=== PATIENT | male | born 1980 | race Caucasian/White ===

== ENCOUNTER 2019-01-24 12:50 | Inpatient (IN) | payer OTHER ==
[~2019-01-24] VITALS: Ht 167.6 cm; Wt 107.0 kg
[2019-01-24 16:20] VITALS: BP 141/81; PULSE 96; RESP 18
[2019-01-24] MEDS ORDERED: morphine 2 MG INJ IV PRN (17:00)
[2019-01-24] MEDS ORDERED: NACL 0.9% 3 ML SYG IV SCH (17:00)
[2019-01-24] MEDS: PIPER-TAZO 3.375 GM IV (PMX) 100 ML IVPB SCH (17:36)
--- NOTE | 2019-01-24 17:54 | HP ---
Date/Time of Note Date/Time of Note DATE: 01/24/19 TIME: 17:48 Assessment/Plan VTE Prophylaxis Risk score (from Nsg)>0 risk: 1 SCD applied (from Nsg): Yes Pharmacological prophylaxis: heparin Lines/Catheters IV Catheter Type (from [facility]): Saline Lock Assessment/Plan Hospital Course 39 yo male with h/o diverticulitis who presents again with mild diverticulitis with small abscess - Will give zoysn IV for now - No indication for surgical management now given clinical stability. Abscess is very small to have IR attempt drainage so will manage conservatively - If doing well overnight will plan to discharge in AM with strict return precautions. Patient wants to be able to go to work tomorrow Result Diagram: 01/24/19 1703 Results 24hrs Laboratory Tests Test 01/24/19 17:03 White Blood Count 10.3 Red Blood Count 4.65 L Hemoglobin 14.6 Hematocrit 43.2 Mean Corpuscular Volume 92.9 Mean Corpuscular Hemoglobin 31.4 Mean Corpuscular Hemoglobin Concent 33.8 Red Cell Distribution Width 13.4 Platelet Count 236 Mean Platelet Volume 11.3 H Immature Granulocytes % 0.200 Neutrophils % 73.1 Lymphocytes % 17.6 Monocytes % 8.3 Eosinophils % 0.5 Basophils % 0.3 Nucleated Red Blood Cells % 0.0 Immature Granulocytes # 0.020 Neutrophils # 7.5 Lymphocytes # 1.8 Monocytes # 0.9 Eosinophils # 0.1 Basophils # 0.0 Nucleated Red Blood Cells # 0.0 HPI/ROS Admit Date/Time Admit Date/Time January 24, 2019 at 15:22 Hx of Present Illness 39 yo male with h/o diverticulitis who has been transferred from [facility] ED for management of recurrent diverticulitis Patient says he had severe episode of diverticulitis a few years ago. resolved and has been fine since. However he has been instructed to seek immediate care if ever develops similiar symptoms. Over past day has developed mild abdominal pain and pressure so went to ED and CT scan showed acute diverticulitis of sigmoid colon with 1.5 cm rosita-colonic abscess. He was given abx there and transferred here Seen after this he feels totally normal he says. pain completely resolved. wants to eat. Requests to be discharged in AM ROS Constitutional: no complaints, improved Eyes: no complaints ENT: no complaints Respiratory: no complaints Cardiovascular: no complaints Gastrointestinal: no complaints Genitourinary: no complaints Musculoskeletal: no complaints Skin: no complaints Neurologic: no complaints Endocrine: no complaints Lymphatic: no complaints Psychological: no complaints, nl mood/affect Immunologic: no complaints PMH/Family/Social Past Medical History Medical History: colitis Medications Current Medications IV Flush (NS 3 ml) 3 ml PER PROTOCOL IV ; Start 01/24/19 at 17:00 Morphine Sulfate (morphine) 2 mg Q4H PRN IV .SEVERE PAIN 7-10; Start 01/24/19 at 17:00 Piperacillin Sod/ Tazobactam Sod 100 ml @ 200 mls/hr Q8 IVPB Last administered on 01/24/19at 17:36; Admin Dose 200 MLS/HR; Start 01/24/19 at 17:30 Coded Allergies: No Known Allergy (Unverified , 01/24/19) Past Surgical History Past Surgical Hx: no surgical history Family History Significant Family History: no pertinent family hx Social History Smoking Status: Former smoker Drug Use: none Exam/Review of Systems Vital Signs Vitals Vital Signs Date Temp Pulse Resp B/P (MAP) Pulse Ox O2 O2 Flow FiO2 Time Delivery Rate 01/24/19 98.6 96 18 141/81 Room Air 16:20 (101) Exam Constitutional: alert, oriented, well developed Psych: no complaints, nl mood/affect Head: normocephalic, atraumatic Eyes: nl conjunctiva, EOMI, nl lids, nl sclera, PERRL ENMT: nl external ears & nose, nl lips & teeth, nl nasal mucosa & septum Neck: supple, non-tender Respiratory: clear to auscultation, normal air movement Cardiovascular: regular rate and rhythm, nl pulses Gastrointestinal: soft, nl liver, spleen, non-tender Musculoskeletal: nl extremities to inspection Extremities: normal pulses 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
[2019-01-24 20:00] VITALS: BP 137/81; PULSE 79; RESP 18
[2019-01-25] MEDS: PIPER-TAZO 3.375 GM IV (PMX) 100 ML IVPB SCH ×2 (00:05→07:37)
[2019-01-25] MEDS ORDERED: ACETAMINOPHEN 325 MG TAB PO PRN (00:30)
[2019-01-25 02:00] VITALS: BP 127/72; PULSE 71; RESP 18
[2019-01-25 08:00] VITALS: BP 120/69; PULSE 68; RESP 17
[2019-01-25] MEDS ORDERED: METR500T PO (09:09)
[2019-01-25] MEDS ORDERED: CIPR500T4 PO (09:09)
--- NOTE | 2019-01-25 09:12 | PDOCDIS ---
Discharge Instructions DIAGNOSIS Discharge Diagnosis Diverticulitis CONDITION [id number] Patient Condition: [id number] Stable FOLLOW UP/APPOINTMENTS Follow-up Plan Take your antibiotics as prescribed Return to the hospital if you have worsening of abdominal pain, fever, or any other concerning symptoms CELESTE SCHROEDER MD January 25, 2019 09:12
--- NOTE | 2019-01-25 15:30 | DS ---
Date/Time of Note Date/Time of Note DATE: 01/25/19 TIME: 15:29 Discharge Summary Admission/Discharge Info Admit Date/Time January 24, 2019 at 15:22 Discharge Date/Time January 25, 2019 at 10:25 Discharge Diagnosis Diverticulitis Patient Condition: Stable Hx of Present Illness 39 yo male with h/o diverticulitis who has been transferred from [facility] ED for management of recurrent diverticulitis Patient says he had severe episode of diverticulitis a few years ago. resolved and has been fine since. However he has been instructed to seek immediate care if ever develops similiar symptoms. Over past day has developed mild abdominal pain and pressure so went to ED and CT scan showed acute diverticulitis of sigmoid colon with 1.5 cm rosita-colonic abscess. He was given abx there and transferred here Seen after this he feels totally normal he says. pain completely resolved. wants to eat. Requests to be discharged in AM Hospital Course 39 yo male with h/o diverticulitis who presents again with mild diverticulitis with small abscess He was given zoysn IV. He had no abdominal pain or systemic toxicity. He requested to be discharged. He was given cipro and flagyl and advised to return if symptoms recur Home Meds Active Scripts Metronidazole* (Flagyl*) 500 Mg Tablet, 500 MG PO TID for 14 Days, #21 TAB Prov:CELESTE SCHROEDER MD 01/25/19 Ciprofloxacin Hcl* (Ciprofloxacin Hcl*) 500 Mg Tablet, 500 MG PO BID for 14 Days, #14 TAB Prov:CELESTE SCHROEDER MD 01/25/19 Follow-up Plan Take your antibiotics as prescribed Return to the hospital if you have worsening of abdominal pain, fever, or any other concerning symptoms Primary Care Provider Not On Staff Doctor Pending Labs Laboratory Tests Test 01/24/19 17:03 01/25/19 04:59 White Blood Count 10.3 10^3/ul (4.8-10.8) 8.2 10^3/ul (4.8-10.8) Red Blood Count 4.65 10^6/ul (4.70-6.10) 4.88 10^6/ul (4.70-6.10) Hemoglobin 14.6 g/dl (14.0-18.0) 15.4 g/dl (14.0-18.0) Hematocrit 43.2 % (42.0-52.0) 45.1 % (42.0-52.0) Mean Corpuscular Volume 92.9 fl (82.0-101.0) 92.4 fl (82.0-101.0) Mean Corpuscular 31.4 pg (29.0-33.0) 31.6 pg (29.0-33.0) Hemoglobin Mean Corpuscular 33.8 g/dl (32.0-37.0) 34.1 g/dl (32.0-37.0) Hemoglobin Concent Red Cell Distribution 13.4 % (11.5-14.5) 13.5 % (11.5-14.5) Width Platelet Count 236 10^3/UL (140-415) 256 10^3/UL (140-415) Mean Platelet Volume 11.3 fl (7.4-10.4) 11.5 fl (7.4-10.4) Immature Granulocytes % 0.200 % (0.001-0.429) 0.200 % (0.001-0.429) Neutrophils % 73.1 % (39.0-77.0) 66.0 % (39.0-77.0) Lymphocytes % 17.6 % (15.0-51.0) 22.6 % (15.0-51.0) Monocytes % 8.3 % (0.0-11.0) 8.9 % (0.0-11.0) Eosinophils % 0.5 % (0.0-7.0) 1.8 % (0.0-7.0) Basophils % 0.3 % (0.0-2.0) 0.5 % (0.0-2.0) Nucleated Red Blood Cells 0.0 /100WBC (0.0-0.0) 0.0 /100WBC (0.0-0.0) % Immature Granulocytes # 0.020 10^3/ul (0.0-0.031) 0.020 10^3/ul (0.0-0.031) Neutrophils # 7.5 10^3/ul (1.6-7.5) 5.4 10^3/ul (1.6-7.5) Lymphocytes # 1.8 10^3/ul (0.8-2.9) 1.9 10^3/ul (0.8-2.9) Monocytes # 0.9 10^3/ul (0.3-0.9) 0.7 10^3/ul (0.3-0.9) Eosinophils # 0.1 10^3/ul (0.0-0.5) 0.2 10^3/ul (0.0-0.5) Basophils # 0.0 10^3/ul (0.0-0.1) 0.0 10^3/ul (0.0-0.1) Nucleated Red Blood Cells 0.0 10^3/ul (0.0-0.0) 0.0 10^3/ul (0.0-0.0) # Sodium Level 141 mmol/L (135-144) 143 mmol/L (135-144) Potassium Level 4.3 mmol/L (3.5-5.1) 4.2 mmol/L (3.5-5.1) Chloride Level 107 mmol/L (97-110) 106 mmol/L (97-110) Carbon Dioxide Level 24 mmol/L (21-31) 27 mmol/L (21-31) Anion Gap 10 (5-13) 10 (5-13) Blood Urea Nitrogen 8 mg/dl (7-20) 10 mg/dl (7-20) Creatinine 0.70 mg/dl (0.61-1.24) 0.75 mg/dl (0.61-1.24) Est Glomerular Filtrat > 60 mL/min (>60) > 60 mL/min (>60) Rate mL/min Glucose Level 84 mg/dl (70-220) 99 mg/dl (70-220) Calcium Level 9.9 mg/dl (8.4-10.2) 9.4 mg/dl (8.4-10.2) Total Bilirubin 0.7 mg/dl (0.2-1.3) 0.7 mg/dl (0.2-1.3) Direct Bilirubin 0.00 mg/dl (0.00-0.20) 0.00 mg/dl (0.00-0.20) Indirect Bilirubin 0.7 mg/dl (0-1.1) 0.7 mg/dl (0-1.1) Aspartate Amino 20 IU/L (15-46) 19 IU/L (15-46) Transf (AST/SGOT) Alanine 23 IU/L (13-69) 19 IU/L (13-69) Aminotransferase (ALT/SGPT ) Alkaline Phosphatase 96 IU/L (42-121) 74 IU/L (42-121) Total Protein 7.6 g/dl (6.1-8.1) 7.1 g/dl (6.1-8.1) Albumin 4.3 g/dl (3.3-4.9) 4.1 g/dl (3.3-4.9) Globulin 3.30 g/dl (1.3-3.2) 3.00 g/dl (1.3-3.2) Albumin/Globulin Ratio 1.30 1.36 Hemoglobin A1c 5.1 % (0-5.9) CELESTE SCHROEDER MD January 25, 2019 15:30
== END 2019-01-25 10:25 | disposition home or self-care (01) | DRG 392 ==
LOC: PP2 15:22
PROVIDERS: ADMIT Internal Medicine; ATTEND Internal Medicine
DX: K57.20 Diverticulitis of large intestine with perforation and abscess without bleeding (principal)
CPT/HCPCS: 80053; 83036; 85025; J2543

== ENCOUNTER 2019-01-31 23:16 | Inpatient (IN) | payer OTHER ==
[~2019-01-31] VITALS: Ht 167.6 cm; Wt 107.0 kg
[~2019-01-31 23:16] MED LIST: CIPR500T4 PO; METR500T PO
[2019-02-01] MEDS ORDERED: morphine 4 MG/ML VIAL IV STA (02:20)
[2019-02-01] MEDS ORDERED: SOD CHLORIDE 0.9% 100 ML ONE (03:33)
[2019-02-01] MEDS ORDERED: IOHEXOL 300MG/ML 150 ML BTL ONE (03:33)
--- NOTE | 2019-02-01 03:33 | ERD ---
ER Documentation Chief Complaint Chief Complaint L LOWER ABD PAIN. DX'D DIVERTICULOSIS, NOT IMPROVING. HPI 39-year-old male with a history of diverticulosis presenting with left lower quadrant abdominal pain that is severe, 8 out of 10, radiating to his left lower back, with no associated fever, chills, nausea, vomiting, diarrhea or constipation. No melena or hematochezia. He was admitted on January 24 for diverticulitis and was treated with antibiotics with improvement of his symptoms. At that time on outside CT, he was noted to have a 1.5 cm abscess per his records. However there was no surgical consult on that admission and no intervention done for the abscess. As the patient was feeling better, he was discharged with oral Flagyl and Cipro. Patient states that he was compliant with these medications and just finished them yesterday. He started feeling pain starting a few days ago but significantly worse today. Pain is worse with movement. No alleviating factors. He is concerned that he has diverticulitis again. ROS All systems reviewed and are negative except as per history of present illness. Medications Home Meds Discontinued Scripts Metronidazole* (Flagyl*) 500 Mg Tablet, 500 MG PO TID for 14 Days, #21 TAB Prov:CELESTE SCHROEDER MD 01/25/19 Ciprofloxacin Hcl* (Ciprofloxacin Hcl*) 500 Mg Tablet, 500 MG PO BID for 14 Days, #14 TAB Prov:CELESTE SCHROEDER MD 01/25/19 Allergies Allergies: Coded Allergies: No Known Allergy (Unverified , 02/01/19) PMhx/Soc History of Surgery: Yes (Rt eye fx orbit, right hand orthopedic 1998) Anesthesia Reaction: No Hx Neurological Disorder: No Hx Respiratory Disorders: No Hx Cardiac Disorders: No Hx Psychiatric Problems: No Hx Miscellaneous Medical Probl: Yes (Diverticulosis/diverticulitis) Hx Alcohol Use: Yes (Naltrexone) Hx Substance Use: No Hx Tobacco Use: Yes Smoking Status: Current some day smoker FmHx Family History: No diabetes Physical Exam Vitals Vital Signs Date Temp Pulse Resp B/P (MAP) Pulse Ox O2 O2 Flow FiO2 Time Delivery Rate 02/01/19 98.6 90 16 129/84 99 Room Air 08:00 (99) 02/01/19 94 16 118/84 99 Room Air 06:46 (95) 02/01/19 96 16 137/91 99 Room Air 05:09 (106) 02/01/19 93 18 153/90 99 Room Air 02:57 (111) 01/31/19 98.3 66 20 126/80 98 23:31 (95) Physical Exam Const: No acute distress, nontoxic Head: Atraumatic Eyes: Normal Conjunctiva ENT: Normal External Ears, Nose and Mouth. Neck: Full range of motion. No meningismus. Resp: Clear to auscultation bilaterally Cardio: Regular rate and rhythm, no murmurs Abd: Soft, left lower quadrant and suprapubic area tender to deep palpation, no rebound or guarding, non distended. Normal bowel sounds Skin: No petechiae or rashes Back: No midline or flank tenderness Ext: No cyanosis, or edema Neur: Awake and alert Psych: Normal Mood and Affect Result Diagram: 02/02/1955402/02/19554 Results 24 hrs Laboratory Tests Test 02/01/19 02:27 White Blood Count 11.5 10^3/ul Red Blood Count 4.66 10^6/ul Hemoglobin 14.5 g/dl Hematocrit 42.5 % Mean Corpuscular Volume 91.2 fl Mean Corpuscular Hemoglobin 31.1 pg Mean Corpuscular Hemoglobin Concent 34.1 g/dl Red Cell Distribution Width 13.0 % Platelet Count 197 10^3/UL Mean Platelet Volume 11.4 fl Immature Granulocytes % 0.300 % Neutrophils % 81.2 % Lymphocytes % 11.4 % Monocytes % 6.1 % Eosinophils % 0.7 % Basophils % 0.3 % Nucleated Red Blood Cells % 0.0 /100WBC Immature Granulocytes # 0.040 10^3/ul Neutrophils # 9.3 10^3/ul Lymphocytes # 1.3 10^3/ul Monocytes # 0.7 10^3/ul Eosinophils # 0.1 10^3/ul Basophils # 0.0 10^3/ul Nucleated Red Blood Cells # 0.0 10^3/ul Urine Color YELLOW Urine Clarity CLEAR Urine pH 6.0 Urine Specific [place] 1.006 Urine Ketones NEGATIVE mg/dL Urine Nitrite NEGATIVE mg/dL Urine Bilirubin NEGATIVE mg/dL Urine Urobilinogen NEGATIVE mg/dL Urine Leukocyte Esterase TRACE Mar/ul Urine Microscopic RBC 0 /HPF Urine Microscopic WBC 0 /HPF Urine Hemoglobin NEGATIVE mg/dL Urine Glucose 3+ mg/dL Urine Total Protein NEGATIVE mg/dl Sodium Level 141 mmol/L Potassium Level 3.3 mmol/L Chloride Level 103 mmol/L Carbon Dioxide Level 28 mmol/L Anion Gap 10 Blood Urea Nitrogen 7 mg/dl Creatinine 0.69 mg/dl Est Glomerular Filtrat Rate mL/min > 60 mL/min Glucose Level 176 mg/dl Calcium Level 9.2 mg/dl Current Medications Medications Dose Sig/Christian Start Time Status Last (Trade) Ordered Route PRN Stop Time Admin Dose Reason Admin Morphine 4 mg ONCE STAT 02/01/19 DC 02/01/19 Sulfate IV 02:20 02:34 (morphine) 02/01/19 02:21 IV Flush 10 ml STK-MED 02/01/19 DC 02/01/19 (NS 10 ml) ONCE .ROUTE 03:33 03:41 02/01/19 03:34 Sodium 100 ml @ ud STK-MED 02/01/19 DC 02/01/19 Chloride ONCE .ROUTE 03:33 03:42 02/01/19 03:34 Iohexol 150 ml STK-MED 02/01/19 DC 02/01/19 (Omnipaque ONCE .ROUTE 03:33 03:42 300mg/ ml) 02/01/19 03:34 Morphine 6 mg ONCE ONCE 02/01/19 DC 02/01/19 Sulfate IV 06:30 06:39 (morphine) 02/01/19 06:33 Piperacillin 100 ml @ ONCE STAT 02/01/19 DC 02/01/19 Sod/ 200 mls/hr IVPB 06:25 06:39 Tazobactam 02/01/19 06:54 Sod Procedures/MDM EMERGENT LABS AND DIAGNOSTIC STUDIES: Lab Results above were reviewed and interpreted by me. CBC: no anemia or evidence of infection BMP: no e/o clinically significant electrolyte abnormality severe acidosis, alkalosis, renal failure, diabetic ketoacidosis UA: no evidence of infection Lactate within normal limits with no evidence of severe sepsis Radiology Results as interpreted by Radiology below were reviewed by Raul Chu MD: CT abdomen and pelvis with IV contrast: IMPRESSION: 1. Acute diverticulitis involving the mid to proximal sigmoid colon as described above and along its lateral more distal aspect is a 3.8 x 1.3 cm abscess. 2. Unremarkable appendix. Initial Nursing notes reviewed. Previous Medical Records requested via the Electronic Health Record. EMERGENCY DEPARTMENT COURSE / MEDICAL DECISION MAKING: Patient is presenting with left lower quadrant pain that is recurrent and the most likely indicative of recurrent diverticulitis. I have a suspicion that the abscess did not resolve which is why he failed outpatient antibiotic therapy. He came in afebrile with stable vitals. Work-up was notable for a CT scan that showed acute diverticulitis with a larger abscess than was seen previously. Patient was started on IV antibiotics. I discussed his results with him and stated that he would at this point need a surgical versus IR consult for abscess drainage. Patient is very hesitant about any surgery, but I explained to him that this may be the only way he gets better. Patient is agreeable to admission and further treatment. Plan to admit to [facility]. Departure Diagnosis: Primary Impression: Acute diverticulitis Additional Impression: Intra-abdominal abscess Condition: Serious NHAN CHU MD February 01, 2019 03:33
[2019-02-01] MEDS ORDERED: PIPER-TAZO 3.375 GM IV (PMX) 100 ML IVPB STA (06:25)
[2019-02-01] MEDS ORDERED: morphine 10 MG INJ IV ONE (06:30)
[2019-02-01] MEDS ORDERED: ONDANSETRON 4 MG INJ IV PRN ×2 (08:30→09:00)
[2019-02-01] MEDS ORDERED: ACETAMINOPHEN 325 MG TAB PO PRN (08:30)
[2019-02-01] MEDS ORDERED: NACL 0.9% 3 ML SYG IV SCH (09:00)
[2019-02-01] MEDS ORDERED: morphine 2 MG INJ IV PRN (09:00)
--- NOTE | 2019-02-01 09:03 | HP ---
Date/Time of Note Date/Time of Note DATE: 02/01/19 TIME: 09:02 Assessment/Plan VTE Prophylaxis Pharmacological prophylaxis: other Lines/Catheters [facility] Saline Lock Assessment/Plan Hospital Course Patient is a male with a past medical history significant for diverticulitis approximately 7 years ago as well as 2 weeks ago who presents to [facility] for continuing and worsening pain. Patient states that approximately 2 weeks ago patient had pain in the abdomen, was admitted and diagnosed with diverticulitis. Patient said that he felt good enough to go home and asked the physician to be discharged with oral antibiotics even though the physician stated that he should probably stay inpatient for at least a few more days with IV antibiotics. Patient continued to have worsening abdominal pain an d progressively became intolerable. Patient presented again to [facility], CT showing diverticulitis with abscess. Patient states and denies chest pain, shortness of breath, headache, dizziness, urinary or bladder dysfunction, constipation or diarrhea, leg pain Objective Physical exam General: Patient is laying in bed and answers questions appropriately Mentation: Patient is alert and oriented 4, Head: Normocephalic atraumatic Eyes: EOMI, pupils reactive to light Neck: Supple, nontender, midline Respiratory: Clear to auscultation bilaterally Cardiovascular: regular rate, no obvious murmurs Gastrointestinal: Tender to palpation, worse in the left lower quadrant, bowel sounds heard. Neurological: Moves all extremities spontaneously Skin: No new skin lesions Assessment and plan Acute diverticulitis with abscess -4 cm abscess, may or may not be amenable to drainage, general surgeon, consulted, recommended attempt to drain via interventional radiology, order placed, radiologist to review -IV antibiotic, broad-spectrum -IV fluid -Cultures Abdominal pain -Secondary to above -IV pain medication -Monitor closely Electrolyte derangement -Replete as needed Disposition -Awaiting general surgery recommendations as well as radiologist recommendations regarding abscess drainage. He will Result Diagram: 02/01/1922602/01/19226 Results 24hrs Laboratory Tests Test 02/01/19 02:27 White Blood Count 11.5 #H Red Blood Count 4.66 L Hemoglobin 14.5 Hematocrit 42.5 Mean Corpuscular Volume 91.2 Mean Corpuscular Hemoglobin 31.1 Mean Corpuscular Hemoglobin Concent 34.1 Red Cell Distribution Width 13.0 Platelet Count 197 # Mean Platelet Volume 11.4 H Immature Granulocytes % 0.300 Neutrophils % 81.2 H Lymphocytes % 11.4 L Monocytes % 6.1 Eosinophils % 0.7 Basophils % 0.3 Nucleated Red Blood Cells % 0.0 Immature Granulocytes # 0.040 H Neutrophils # 9.3 H Lymphocytes # 1.3 Monocytes # 0.7 Eosinophils # 0.1 Basophils # 0.0 Nucleated Red Blood Cells # 0.0 Urine Color YELLOW Urine Clarity CLEAR Urine pH 6.0 Urine Specific [place] 1.006 Urine Ketones NEGATIVE Urine Nitrite NEGATIVE Urine Bilirubin NEGATIVE Urine Urobilinogen NEGATIVE Urine Leukocyte Esterase TRACE A Urine Microscopic RBC 0 Urine Microscopic WBC 0 Urine Hemoglobin NEGATIVE Urine Glucose 3+ H Urine Total Protein NEGATIVE Sodium Level 141 Potassium Level 3.3 L Chloride Level 103 Carbon Dioxide Level 28 Anion Gap 10 Blood Urea Nitrogen 7 Creatinine 0.69 Est Glomerular Filtrat Rate mL/min > 60 Glucose Level 176 Calcium Level 9.2 HPI/ROS Admit Date/Time Admit Date/Time PMH/Family/Social Past Medical History Medications Current Medications Ondansetron HCl (Zofran Inj) 4 mg BRIDGE ORDER PRN IV NAUSEA/VOMITING; Start 02/01/19 at 08:30; Stop 02/02/19 at 08:29 Acetaminophen (Tylenol Tab) 650 mg ER BRIDGE PRN PO .MILD PAIN 1-3 OR TEMP; Start 02/01/19 at 08:30; Stop 02/02/19 at 08:29 Piperacillin Sod/ Tazobactam Sod 100 ml @ 200 mls/hr Q6 IVPB ; Start 02/01/19 at 12:00; Status UNV Sodium Chloride 1,000 ml @ 125 mls/hr Q8H IV ; Start 02/01/19 at 08:43; Status UNV IV Flush (NS 3 ml) 3 ml PER PROTOCOL IV ; Start 02/01/19 at 09:00; Status UNV Ondansetron HCl (Zofran Inj) 4 mg Q6H PRN IV NAUSEA/VOMITING; Start 02/01/19 at 09:00; Status UNV Morphine Sulfate (morphine) 2 mg Q4H PRN IV .PAIN 7-10; Start 02/01/19 at 09:00; Status UNV Pantoprazole (Protonix Iv) 40 mg DAILY@06 IV ; Start 02/02/19 at 06:00; Status UNV Potassium Chloride 100 ml @ 50 mls/hr Q2H IVPB ; Start 02/01/19 at 09:00; Stop 02/01/19 at 12:59; Status UNV Coded Allergies: No Known Allergy (Unverified , 01/24/19) Past Surgical History Past Surgical Hx: no surgical history Family History Significant Family History: no pertinent family hx Social History Smoking Status: Current some day smoker Exam/Review of Systems Vital Signs Vitals Vital Signs Date Temp Pulse Resp B/P (MAP) Pulse Ox O2 O2 Flow FiO2 Time Delivery Rate 02/01/19 98.6 90 16 129/84 99 Room Air 08:00 (99) KAYLEN MURO February 01, 2019 09:03
[2019-02-01] MEDS: HYDROmorphONE 0.5 MG/0.5 ML SYG IV PRN ×2 (09:09→13:08)
[2019-02-01] MEDS: FAMOTIDINE 20 MG INJ IV SCH ×2 (09:09→21:29)
[2019-02-01] MEDS: SOD CHLORIDE 0.9% 1,000 ML IV SCH ×3 (09:10→21:34)
[2019-02-01] MEDS: POTASSIUM CHLORIDE 100 ML IVPB SCH ×2 (09:10→10:49)
[2019-02-01 12:35] VITALS: BP 126/73; PULSE 81; RESP 16
[2019-02-01] MEDS: PIPER-TAZO 3.375 GM IV (PMX) 100 ML IVPB SCH ×3 (12:50→23:15)
[2019-02-01 12:56] VITALS: Ht 167.6 cm; Wt 107.0 kg
[2019-02-01] MEDS ORDERED: HYDROmorphONE 0.5 MG/0.5 ML SYG IV STA (14:03)
--- NOTE | 2019-02-01 16:09 | CONS ---
Assessment/Plan Assessment/Plan Hospital Course (Demo Recall) 1. Recurrent perforated diverticulitis with abscess. HD stable. -iv abx -npo -ivf -IR to drain abscess (however it is small) -close monitoring and possible need for surgery if not improving or worsening 2. Leukocytosis -As above -Trend 3. Abdominal pain -As above 4. Hypokalemia: Replete and monitor Thank you very much for consulting me in this patient's care, Consultation Date/Type/Reason Admit Date/Time Date of Consultation: February 01, 2019 Type of Consult G. Surgical Reason for Consultation Abdominal pain Recurrent diverticulitis with ? abscess BMI 38 Requesting Provider: NHAN NAJERA MD Date/Time of Note DATE: 02/01/19 TIME: 16:09 Hx of Present Illness Carroll Casarez is a 39yo male with diverticulitis approximately 7 years ago as well as 2 weeks ago who presents to [facility] for continuing and worsening pain. During his last hospitalization, patient said that he felt good enough to go home and asked the physician to be discharged with oral antibiotics even though the physician stated that he should probably stay inpatient for at least a few more days with IV antibiotics. Since leaving the hospital, patient continued to have worsening abdominal pain and progressively became intolerable. Patient states and denies chest pain, shortness of breath, headache, dizziness, urinary or bladder dysfunction, constipation or diarrhea, leg pain. No f/c. No visual or neuro changes. No dysuria. His w/u identified diverticulitis with abscess. Surgical consult is obtained for further evaluation and treatment. 12 point ros negative unless otherwise addressed in chart Past Medical History Recurrent diverticulitis BMI 38 Leukocytosis Home Meds No Active Prescriptions or Reported Meds Medications Current Medications Piperacillin Sod/ Tazobactam Sod 100 ml @ 200 mls/hr Q6 IVPB Last administered on 02/01/19at 12:50; Admin Dose 200 MLS/HR; Start 02/01/19 at 12:00 Sodium Chloride 1,000 ml @ 125 mls/hr Q8H IV Last administered on 02/01/19at 09:10; Admin Dose 125 MLS/HR; Start 02/01/19 at 08:43 IV Flush (NS 3 ml) 3 ml PER PROTOCOL IV ; Start 02/01/19 at 09:00 Ondansetron HCl (Zofran Inj) 4 mg Q6H PRN IV NAUSEA/VOMITING; Start 02/01/19 at 09:00 Famotidine (Pepcid Iv) 20 mg Q12H IV Last administered on 02/01/19at 09:09; Admin Dose 20 MG; Start 02/01/19 at 09:30 Hydromorphone HCl (Dilaudid) 1 mg Q3H PRN IV SEVERE PAIN LEVEL 7-10; Start 02/01/19 at 14:30 Allergies: Coded Allergies: No Known Allergy (Unverified , 02/01/19) Past Surgical History Past Surgical Hx: no surgical history Family History Significant Family History: no pertinent family hx Social History tattoos Alcohol Use: occasionally Smoking Status: Current some day smoker Drug Use: none Exam/Review of Systems Exam Vitals Vital Signs Date Temp Pulse Resp B/P (MAP) Pulse Ox O2 O2 Flow FiO2 Time Delivery Rate 02/01/19 98.9 81 16 126/73 97 12:35 (90) 02/01/19 Room Air 11:53 Exam Constitutional: alert, oriented Psych: nl mood/affect; No anxiety Head: normocephalic, atraumatic Eyes: nl conjunctiva, EOMI, nl lids, nl sclera ENMT: nl external ears & nose, nl lips & teeth, nl nasal mucosa & septum, mucosa pink and moist Neck: supple, non-tender Respiratory: normal air movement; No congested cough Cardiovascular: regular rate and rhythm, nl pulses Gastrointestinal: soft, tender (Bilateral lower quadrants), not rigid, no guarding/rebound Genitourinary - Male: nl scrotum Musculoskeletal: nl extremities to inspection, nl gait and stance Extremities: normal pulses Neurological: nl mental status, nl speech, nl strength Constitutional: alert, oriented, obese; No distress Psych: nl mood/affect; No anxiety Head: normocephalic, atraumatic Eyes: nl conjunctiva, EOMI, PERRL; No icteric ENMT: nl external ears & nose, mucosa pink and moist Neck: non-tender; No jvd Respiratory: normal air movement; No congested cough, No labored breathing, No wheezing Cardiovascular: regular rate and rhythm, nl pulses; No edema Gastrointestinal: soft, tender (min ); No rebound or guarding Genitourinary - Male: nl penis, nl scrotum Musculoskeletal: nl extremities to inspection; No joint tenderness Extremities: normal pulses; No calf tenderness, No edema Neurological: nl mental status, nl speech, nl strength Skin: nl turgor; No rash or lesions, No diaphoresis Lymph: nl lymph nodes Results Result Diagram: 02/01/19 0954 02/01/19 0227 Results 24hrs Laboratory Tests Test 02/01/19 02:27 02/01/19 09:54 White Blood Count 11.5 #H Red Blood Count 4.66 L Hemoglobin 14.5 Hematocrit 42.5 Mean Corpuscular Volume 91.2 Mean Corpuscular Hemoglobin 31.1 Mean Corpuscular Hemoglobin Concent 34.1 Red Cell Distribution Width 13.0 Platelet Count 197 # 202 Mean Platelet Volume 11.4 H Immature Granulocytes % 0.300 Neutrophils % 81.2 H Lymphocytes % 11.4 L Monocytes % 6.1 Eosinophils % 0.7 Basophils % 0.3 Nucleated Red Blood Cells % 0.0 Immature Granulocytes # 0.040 H Neutrophils # 9.3 H Lymphocytes # 1.3 Monocytes # 0.7 Eosinophils # 0.1 Basophils # 0.0 Nucleated Red Blood Cells # 0.0 Urine Color YELLOW Urine Clarity CLEAR Urine pH 6.0 Urine Specific [place] 1.006 Urine Ketones NEGATIVE Urine Nitrite NEGATIVE Urine Bilirubin NEGATIVE Urine Urobilinogen NEGATIVE Urine Leukocyte Esterase TRACE A Urine Microscopic RBC 0 Urine Microscopic WBC 0 Urine Hemoglobin NEGATIVE Urine Glucose 3+ H Urine Total Protein NEGATIVE Sodium Level 141 Potassium Level 3.3 L Chloride Level 103 Carbon Dioxide Level 28 Anion Gap 10 Blood Urea Nitrogen 7 Creatinine 0.69 Est Glomerular Filtrat Rate mL/min > 60 Glucose Level 176 Calcium Level 9.2 Prothrombin Time 14.8 Prothrombin Time Ratio 1.2 INR International Normalized Ratio 1.15 Activated Partial Thromboplast Time 31.3 Thrombin Time 14.1 Lactic Acid Level 1.1 Medications Medication Current Medications Piperacillin Sod/ Tazobactam Sod 100 ml @ 200 mls/hr Q6 IVPB Last administered on 02/01/19at 12:50; Admin Dose 200 MLS/HR; Start 02/01/19 at 12:00 Sodium Chloride 1,000 ml @ 125 mls/hr Q8H IV Last administered on 02/01/19at 09:10; Admin Dose 125 MLS/HR; Start 02/01/19 at 08:43 IV Flush (NS 3 ml) 3 ml PER PROTOCOL IV ; Start 02/01/19 at 09:00 Ondansetron HCl (Zofran Inj) 4 mg Q6H PRN IV NAUSEA/VOMITING; Start 02/01/19 at 09:00 Famotidine (Pepcid Iv) 20 mg Q12H IV Last administered on 02/01/19at 09:09; Admin Dose 20 MG; Start 02/01/19 at 09:30 Hydromorphone HCl (Dilaudid) 1 mg Q3H PRN IV SEVERE PAIN LEVEL 7-10; Start 02/01/19 at 14:30 BARBARA JACOBS MD February 01, 2019 16:09
[2019-02-01] MEDS: HYDROmorphONE 1 MG/ML SYG IV PRN ×3 (17:22→23:17)
[2019-02-01 20:46] VITALS: BP 107/58; PULSE 99; RESP 18
[2019-02-01] MEDS ORDERED: ACETAMINOPHEN 650 MG SUPP PR ONE (22:30)
[2019-02-02 01:08] VITALS: BP 118/58; PULSE 98; RESP 18
[2019-02-02] MEDS: HYDROmorphONE 1 MG/ML SYG IV PRN ×9 (02:55→23:33)
[2019-02-02] MEDS: PIPER-TAZO 3.375 GM IV (PMX) 100 ML IVPB SCH (05:50)
[2019-02-02] MEDS: SOD CHLORIDE 0.9% 1,000 ML IV SCH ×2 (05:54→15:21)
[2019-02-02] MEDS ORDERED: PANTOPRAZOLE 40 MG INJ IV SCH (06:00)
[2019-02-02 07:50] VITALS: BP 123/58; PULSE 105; RESP 20
[2019-02-02] MEDS: FAMOTIDINE 20 MG INJ IV SCH ×2 (09:00→21:47)
[2019-02-02] MEDS ORDERED: VANCOMYCIN IV PER PHARMACY XX SCH (10:30)
--- NOTE | 2019-02-02 12:22 | CONS ---
DATE OF ADMISSION: 02/01/2019 DATE OF CONSULTATION: 02/02/2019 TYPE OF CONSULTATION: Infectious Disease. REASON FOR CONSULTATION: Antibiotic management. HISTORY OF PRESENT ILLNESS: Carroll Casarez is a 39-year-old male with numerous problems who comes in now with diverticulitis and is being seen for antibiotic management. His past history incl udes diverticulitis approximately 7 years ago, as well as 2 weeks ago. He presents to [facility] for continuing and worsening pain. He states that approximately 2 weeks ago, he had p ain in the abdomen, was admitted with a diagnosis of diverticulitis. He was ready to go home on oral antibiotics even though his physician stated that he probably should stay for at least a few more da ys with IV antibiotics. The patient continued to have worsening abdominal pain and progressively thi s became intolerable. CT scan shows acute diverticulitis involving the mid to proximal sigmoid colon along its more distal aspect is 3.8 x 1.3 cm abscess. There are diverticular changes in the transve rse, descending, and sigmoid colon as well. He has mild splenomegaly. Unremarkable appendix. Blood cultures are negative. White count 15.8, H and H of 13.8 and 41. Platelet count 170,000. BUN and creatinine 6/0.71. Urine, trace leukocyte esterase, 0 white cells per high powered field. The patie nt was seen by Dr. Barbara Beauchamp in surgery who notes recurrent perforated diverticulitis with absce ss, hemodynamically stable. IV antibiotics and p.o. abscess; however, it is small, close monito ring and possible need for surgery if not improving or worsening. Patient had been on Cipro and Flag yl, now is on Zosyn. PAST MEDICAL HISTORY: Operations: None. FAMILY HISTORY: Noncontributory. SOCIAL HISTORY: He smokes on a regular basis. ALLERGIES: NONE TO PENICILLIN, SULFA OR FOODS. MEDICATIONS: Per chart. REVIEW OF SYSTEMS: Noncontributory. PHYSICAL EXAMINATION: GENERAL: The patient is a well-developed, well-nourished, in no acute distress. VITAL SIGNS: Stable. He is afebrile. SKIN: Without generalized rash. HEENT: Within normal limits. NECK: Supple. LYMPH NODES: None palpable. CHEST: Decreased breath sounds at the bases. HEART: Without murmur or gallop. ABDOMEN: Soft, somewhat tender, especially in the left lower quadrants. EXTREMITIES: Without cyanosis, clubbing, or edema, RECTAL AND GENITAL: Deferred. NEUROLOGIC: No focal neurological abnormality. The patient has a 4 cm abscess. His white count is 11.5, H and H 14.5 and 42.5, platelet count 197,0 00. BUN and creatinine 7/0.69, with 81% polys. IMPRESSION AND PLAN: I would agree with n.p.o.Juancarlos, evaluation by invasive radiology if the patie nt is not get better and the abscess cannot be drained by IR, then Dr. Beauchamp should opt for surgery . I will dictate my findings to the hospitalist and to Dr. Beauchamp. Dictated By: JENNIFER ROY MD, JD/NTS Conf#: [id number] DID#: [id number] CC: KAYLEN MURO MD; BARBARA BEAUCHAMP MD;*End*
--- NOTE | 2019-02-02 12:38 | PN ---
Date/Time of Note Date/Time of Note DATE: 02/02/19 TIME: 12:36 Objective Vitals Vital Signs Date Temp Pulse Resp B/P (MAP) Pulse Ox O2 O2 Flow FiO2 Time Delivery Rate 02/02/19 100.3 105 20 123/58 98 07:50 (79) 02/01/19 Room Air 11:53 Intake and Output 02/01/19 02/01/19 02/02/19 1414:59 22:59 06:59 IntakeIntake Total 200 ml 1100 ml 1100 ml BalanceBalance 200 ml 1100 ml 1100 ml Results Result Diagram: 02/02/1955 02[birth year]02/1955 Medications Medications Current Medications Sodium Chloride 1,000 ml @ 125 mls/hr Q8H IV Last administered on 02/02/19at 05:54; Admin Dose 125 MLS/HR; Start 02/01/19 at 08:43 IV Flush (NS 3 ml) 3 ml PER PROTOCOL IV ; Start 02/01/19 at 09:00 Ondansetron HCl (Zofran Inj) 4 mg Q6H PRN IV NAUSEA/VOMITING; Start 02/01/19 at 09:00 Famotidine (Pepcid Iv) 20 mg Q12H IV Last administered on 02/02/19at 09:00; Admin Dose 20 MG; Start 02/01/19 at 09:30 Hydromorphone HCl (Dilaudid) 1 mg Q3H PRN IV SEVERE PAIN LEVEL 7-10 Last administered on 02/02/19at 12:01; Admin Dose 1 MG; Start 02/01/19 at 14:30 Acetaminophen 100 ml @ 400 mls/hr Q6H PRN IVPB fever; Start 02/02/19 at 10:30; Stop 02/03/19 at 10:29 Meropenem/Sodium Chloride 50 ml @ 100 mls/hr Q8 IVPB ; Start 02/02/19 at 14:00 Vancomycin HCl (Vanco Iv Per Pharmacy) VANCOMYCIN PER PHARMACY PER PROTOCOL XX ; Start 02/02/19 at 10:30 VTE Prophylaxis Risk score (from Nsg)>0 risk: 1 SCD applied (from Ns): No SCD contraindication: other Lines/Catheters IV Catheter Type: Keyes in Place: No Assessment/Plan Hospital Course Subjective -still with pain Objective Physical exam General: Patient is laying in bed and answers questions appropriately Mentation: Patient is alert and oriented 4, Head: Normocephalic atraumatic Eyes: EOMI, pupils reactive to light Neck: Supple, nontender, midline Respiratory: Clear to auscultation bilaterally Cardiovascular: regular rate, no obvious murmurs Gastrointestinal: Tender to palpation, worse in the left lower quadrant, bowel sounds heard. Neurological: Moves all extremities spontaneously Skin: No new skin lesions Assessment and plan Acute diverticulitis with abscess -4 cm abscess, may or may not be amenable to drainage, general surgeon, consulted, recommended attempt to drain via interventional radiology, however radiologist can not reach the abscess with a safe window, cont abx for now and f/u with general surgeon recs. -IV antibiotic, broad-spectrum, changed due to increasing white count, ID consulted now. -IV fluid -Cultures Abdominal pain -Secondary to above -IV pain medication -Monitor closely anxiety -ativan iv for now Electrolyte derangement -Replete as needed Disposition -Awaiting general surgery recommendations as well as ID. KAYLEN MURO February 02, 2019 12:38
[2019-02-02 13:35] VITALS: BP 135/60; PULSE 96; RESP 20
[2019-02-02] MEDS: MEROPENEM 1 GM/50ML(PMX) 50 ML IVPB SCH ×2 (13:52→21:48)
[2019-02-02] MEDS: ACETAMINOPHEN 1000MG/100ML IV 100 ML IVPB PRN (16:28)
[2019-02-02] MEDS ORDERED: VANCOMYCIN HCL 2 GM in SOD CHLORIDE 0.9% 500 ML IVPB SCH (16:30)
[2019-02-02 20:21] VITALS: BP 120/70; PULSE 78; RESP 18
--- NOTE | 2019-02-02 23:13 | PN ---
Date/Time of Note Date/Time of Note DATE: 02/02/19 TIME: 23:13 Assessment/Plan Lines/Catheters IV Catheter Type (from Nrs): Peripheral IV Keyes in Place (from Nrs): Yes Assessment/Plan Chief Complaint/Hosp Course 1. Recurrent perforated diverticulitis with abscess. HD stable. Improving -Continue iv abx -Liquid diet -ivf -IR to drain abscess -close monitoring and possible need for surgery if not improving or worsening 2. Leukocytosis -As above -Trend 3. Abdominal pain: Improving -As above 4. Hypokalemia: Replete and monitor Thank you Subjective 24 Hr Interval Summary Abdominal pain slowly improving. WBC noted. No fevers, chills, sob, congested cough, cp, palpitations, greene, dizziness, nausea, vomiting, diarrhea, dysuria. Exam/Review of Systems Vital Signs Vitals Vital Signs Date Temp Pulse Resp B/P (MAP) Pulse Ox O2 O2 Flow FiO2 Time Delivery Rate 02/18/19 98.6 85 18 115/80 99 20:03 (92) 02/14/19 Room Air 16:27 Intake and Output 02/17/19 02/17/19 02/18/19 1515:00 23:00 07:00 IntakeIntake Total 1210 ml 1320 ml 250 ml BalanceBalance 1210 ml 1320 ml 250 ml Exam Free Text/Dictation Constitutional: alert, oriented Psych: nl mood/affect; No anxiety Head: normocephalic, atraumatic Eyes: nl conjunctiva, EOMI, nl lids, nl sclera ENMT: nl external ears & nose, nl lips & teeth, nl nasal mucosa & septum, mucosa pink and moist Neck: supple, non-tender Respiratory: normal air movement; No congested cough Cardiovascular: s1s2, nl pulses Gastrointestinal: soft, tender (Bilateral lower quadrants) Genitourinary - Male: nl scrotum Musculoskeletal: nl extremities to inspection, nl gait and stance Extremities: normal pulses Neurological: nl mental status, nl speech, nl strength Results Result Diagram: 02/16/19 0451 02/16/19 0451 BARBARA JACOBS MD February 02, 2019 23:13
[2019-02-03] MEDS: VANCOMYCIN HCL 1.25 GM in SOD CHLORIDE 0.9% 250 ML IVPB SCH ×3 (00:34→18:55)
[2019-02-03] MEDS: SOD CHLORIDE 0.9% 1,000 ML IV SCH (00:41)
[2019-02-03] MEDS: LORAZEPAM 2 MG INJ IV PRN ×2 (00:47→23:34)
[2019-02-03 01:39] VITALS: BP 128/68; PULSE 90; RESP 18
[2019-02-03] MEDS: HYDROmorphONE 1 MG/ML SYG IV PRN ×2 (03:58→07:56)
[2019-02-03] MEDS: ACETAMINOPHEN 1000MG/100ML IV 100 ML IVPB PRN (04:01)
[2019-02-03] MEDS: MEROPENEM 1 GM/50ML(PMX) 50 ML IVPB SCH ×3 (05:38→22:05)
[2019-02-03 07:47] VITALS: BP 137/75; PULSE 87; RESP 16
[2019-02-03] MEDS: FAMOTIDINE 20 MG INJ IV SCH ×2 (07:57→21:42)
[2019-02-03] MEDS ORDERED: CIPROFLOXACIN 400MG/D5W 200 ML IVPB SCH (10:00)
--- NOTE | 2019-02-03 10:30 | PN ---
Date/Time of Note Date/Time of Note DATE: 02/03/19 TIME: 10:30 Assessment/Plan VTE Prophylaxis Risk score (from Ns)>0 risk: 1 SCD applied (from Ns): No SCD contraindicated: low risk/ambulating Pharmacological prophylaxis: NA/contraindicated Pharm contraindication: low risk/ambulating Lines/Catheters IV Catheter Type (from Nrs): Peripheral IV Urinary Cath still in place: No Assessment/Plan Assessment/Plan 1. Acute diverticulitis with abscess - CT A/P results noted. Discussed with IR abscess is too close to a vessel and obscured with bowel. If intervention needed, will need to be done in OR. Discussed with Gen Surgery and okay to start clear diet and monitor for improvement in WBC. May need to repeat CT scan in a couple days to reassess size/location of abscess and need for intervention - ID on board and appreciate recommendations. Continue on Vanc and Meropenem for now - WBC still elevated 2. Abdominal pain - Secondary to above - improving on Tylenol. continue pain control 3. Anxiety - Ativan iv for now 4. Electrolyte derangement - Replete as needed 5. Disposition - will try clear liquid diet and reevaluate abscess size in the next couple days. Continue current antibiotic and monitor for improvement in WBC and vitals. Result Diagram: 02/03/19 0436 02/03/19 0436 Results 24hrs Laboratory Tests Test 02/03/19 04:36 White Blood Count 16.5 H Red Blood Count 4.26 L Hemoglobin 13.4 L Hematocrit 38.5 L Mean Corpuscular Volume 90.4 Mean Corpuscular Hemoglobin 31.5 Mean Corpuscular Hemoglobin Concent 34.8 Red Cell Distribution Width 12.9 Platelet Count 175 Mean Platelet Volume 11.8 H Immature Granulocytes % 0.400 Neutrophils % 85.7 H Lymphocytes % 6.5 L Monocytes % 7.0 Eosinophils % 0.2 Basophils % 0.2 Nucleated Red Blood Cells % 0.0 Immature Granulocytes # 0.070 H Neutrophils # 14.1 H Lymphocytes # 1.1 Monocytes # 1.2 H Eosinophils # 0.0 Basophils # 0.0 Nucleated Red Blood Cells # 0.0 Sodium Level 137 Potassium Level 3.5 Chloride Level 105 Carbon Dioxide Level 20 L Anion Gap 12 Blood Urea Nitrogen 4 L Creatinine 0.58 L Est Glomerular Filtrat Rate mL/min > 60 Glucose Level 81 Calcium Level 8.5 Phosphorus Level 2.0 L Magnesium Level 1.9 Subjective 24 Hr Interval Summary Free Text/Dictation Patient states pain has improved but still concerned about not being on strong enough antibiotics since still with low grade temp and elevated WBC. Had 2 BMs without any issues. Exam/Review of Systems Exam Vitals Vital Signs Date Temp Pulse Resp B/P (MAP) Pulse Ox O2 O2 Flow FiO2 Time Delivery Rate 02/03/19 98.3 87 16 137/75 99 07:47 (95) 02/03/19 Room Air 01:39 Intake and Output 02/02/19 02/02/19 02/03/19 1515:00 23:00 07:00 IntakeIntake Total 50 ml 650 ml 1100 ml BalanceBalance 50 ml 650 ml 1100 ml Exam General: Patient is laying in bed and answers questions appropriately Neck: Supple, nontender, midline Respiratory: Clear to auscultation bilaterally. no wheezing or rhonchi Cardiovascular: regular rate and rhythm, no obvious murmurs Gastrointestinal: soft, mildly tender to palpation LLQ, bowel sounds heard. no rebound or guarding Ext: Moves all extremities spontaneously. no edema Skin: No new skin lesions Results Results 24hrs Laboratory Tests Test 02/03/19 04:36 White Blood Count 16.5 H Red Blood Count 4.26 L Hemoglobin 13.4 L Hematocrit 38.5 L Mean Corpuscular Volume 90.4 Mean Corpuscular Hemoglobin 31.5 Mean Corpuscular Hemoglobin Concent 34.8 Red Cell Distribution Width 12.9 Platelet Count 175 Mean Platelet Volume 11.8 H Immature Granulocytes % 0.400 Neutrophils % 85.7 H Lymphocytes % 6.5 L Monocytes % 7.0 Eosinophils % 0.2 Basophils % 0.2 Nucleated Red Blood Cells % 0.0 Immature Granulocytes # 0.070 H Neutrophils # 14.1 H Lymphocytes # 1.1 Monocytes # 1.2 H Eosinophils # 0.0 Basophils # 0.0 Nucleated Red Blood Cells # 0.0 Sodium Level 137 Potassium Level 3.5 Chloride Level 105 Carbon Dioxide Level 20 L Anion Gap 12 Blood Urea Nitrogen 4 L Creatinine 0.58 L Est Glomerular Filtrat Rate mL/min > 60 Glucose Level 81 Calcium Level 8.5 Phosphorus Level 2.0 L Magnesium Level 1.9 Medications Medication Current Medications IV Flush (NS 3 ml) 3 ml PER PROTOCOL IV ; Start 02/01/19 at 09:00 Ondansetron HCl (Zofran Inj) 4 mg Q6H PRN IV NAUSEA/VOMITING; Start 02/01/19 at 09:00 Famotidine (Pepcid Iv) 20 mg Q12H IV Last administered on 02/03/19at 07:57; Admin Dose 20 MG; Start 02/01/19 at 09:30 Vancomycin HCl (Vanco Iv Per Pharmacy) VANCOMYCIN PER PHARMACY PER PROTOCOL XX ; Start 02/02/19 at 10:30 Hydromorphone HCl (Dilaudid) 1 mg Q2 PRN IV SEVERE PAIN LEVEL 7-10 Last administered on 02/03/19at 07:56; Admin Dose 1 MG; Start 02/02/19 at 13:00 Lorazepam (Ativan) 0.5 mg Q6H PRN IV anxiety Last administered on 02/03/19at 00:47; Admin Dose 0.5 MG; Start 02/02/19 at 13:00 Vancomycin HCl 1.25 gm/Sodium Chloride 250 ml @ 83.333 mls/ hr Q8H IVPB Last administered on 02/03/19at 07:56; Admin Dose 83.333 MLS/HR; Start 02/03/19 at 01:00 Miscellaneous Information (*Rx Drug Level Order Reminder*) VANCO TR LEVEL PRIOR... 1600 ONCE XX ; Start 02/03/19 at 16:00; Stop 02/03/19 at 16:01 Potassium Chloride/Dextrose/ Sod Cl 1,000 ml @ 100 mls/hr Q10H IV ; Start 02/03/19 at 09:00 Ciprofloxacin/ Dextrose 200 ml @ 200 mls/hr Q12 IVPB ; Start 02/03/19 at 10:00 Metronidazole 100 ml @ 100 mls/hr Q8 IVPB ; Start 02/03/19 at 10:00 Ketorolac Tromethamine (Toradol) 30 mg Q6H PRN IV PAIN LEVEL 1-3; Start 02/03/19 at 10:00; Stop 02/06/19 at 09:59 ARELY DYER MD February 03, 2019 10:30
[2019-02-03] MEDS: D5W-0.45 NACL + KCL 20 MEQ 1,000 ML IV SCH ×2 (10:57→19:00)
[2019-02-03] MEDS: KETOROLAC 30 MG INJ IV PRN ×3 (11:04→22:05)
[2019-02-03] MEDS: metroNIDAZOLE 500 MG/NS (PMX) 100 ML IVPB SCH ×3 (12:11→14:13)
--- NOTE | 2019-02-03 14:38 | CONS ---
Assessment/Plan Assessment/Plan Hospital Course (Demo Recall) Patient is alert feels much better still with low-grade fevers all cultures have been negative WBC today 16.5 with platelets 175 neutrophils 85.7 BUN 4 creatinine 0.58 Antimicrobials: Vanco, Cipro Flagyl, status post Merrem Physical examination: Well-nourished well-developed middle-aged man who is alert in no distress. Head atraumatic normocephalic. Neck is supple chest rise symmetrical. Breath sounds clear. Heart: S1-S2. Abdomen soft bowel sounds present. Extremities without cyanosis Assessment: 1. Systemic inflammatory response syndrome with ongoing fevers and leukocytosis 2. Acute diverticulitis with abscess Plan: We are going to keep patient on Vanco and Merrem for now, continue supportive care, follow surgical recommendations. Per discussion with primary team abscess is not amenable for drainage now Consultation Date/Type/Reason Admit Date/Time February 01, 2019 at 08:04 Initial Consult Date 02/01/19 Type of Consult id Date/Time of Note DATE: 02/03/19 TIME: 14:38 Exam/Review of Systems Exam Vitals Vital Signs Date Temp Pulse Resp B/P (MAP) Pulse Ox O2 O2 Flow FiO2 Time Delivery Rate 02/03/19 98.3 87 16 137/75 99 07:47 (95) 02/03/19 Room Air 01:39 Intake and Output 02/02/19 02/02/19 02/03/19 1515:00 23:00 07:00 IntakeIntake Total 50 ml 650 ml 1100 ml BalanceBalance 50 ml 650 ml 1100 ml Results Result Diagram: 02/03/19 0436 02/03/19 0436 Results 24hrs Laboratory Tests Test 02/03/19 04:36 White Blood Count 16.5 H Red Blood Count 4.26 L Hemoglobin 13.4 L Hematocrit 38.5 L Mean Corpuscular Volume 90.4 Mean Corpuscular Hemoglobin 31.5 Mean Corpuscular Hemoglobin Concent 34.8 Red Cell Distribution Width 12.9 Platelet Count 175 Mean Platelet Volume 11.8 H Immature Granulocytes % 0.400 Neutrophils % 85.7 H Lymphocytes % 6.5 L Monocytes % 7.0 Eosinophils % 0.2 Basophils % 0.2 Nucleated Red Blood Cells % 0.0 Immature Granulocytes # 0.070 H Neutrophils # 14.1 H Lymphocytes # 1.1 Monocytes # 1.2 H Eosinophils # 0.0 Basophils # 0.0 Nucleated Red Blood Cells # 0.0 Sodium Level 137 Potassium Level 3.5 Chloride Level 105 Carbon Dioxide Level 20 L Anion Gap 12 Blood Urea Nitrogen 4 L Creatinine 0.58 L Est Glomerular Filtrat Rate mL/min > 60 Glucose Level 81 Calcium Level 8.5 Phosphorus Level 2.0 L Magnesium Level 1.9 Medications Medication Current Medications IV Flush (NS 3 ml) 3 ml PER PROTOCOL IV ; Start 02/01/19 at 09:00 Ondansetron HCl (Zofran Inj) 4 mg Q6H PRN IV NAUSEA/VOMITING; Start 02/01/19 at 09:00 Famotidine (Pepcid Iv) 20 mg Q12H IV Last administered on 02/03/19at 07:57; Admi n Dose 20 MG; Start 02/01/19 at 09:30 Vancomycin HCl (Vanco Iv Per Pharmacy) VANCOMYCIN PER PHARMACY PER PROTOCOL XX ; Start 02/02/19 at 10:30 Hydromorphone HCl (Dilaudid) 1 mg Q2 PRN IV SEVERE PAIN LEVEL 7-10 Last administered on 02/03/19at 07:56; Admin Dose 1 MG; Start 02/02/19 at 13:00 Lorazepam (Ativan) 0.5 mg Q6H PRN IV anxiety Last administered on 02/03/19at 00:47; Admin Dose 0.5 MG; Start 02/02/19 at 13:00 Vancomycin HCl 1.25 gm/Sodium Chloride 250 ml @ 83.333 mls/ hr Q8H IVPB Last administered on 02/03/19at 07:56; Admin Dose 83.333 MLS/HR; Start 02/03/19 at 01:00 Miscellaneous Information (*Rx Drug Level Order Reminder*) VANCO TR LEVEL PRIOR... 1600 ONCE XX ; Start 02/03/19 at 16:00; Stop 02/03/19 at 16:01 Potassium Chloride/Dextrose/ Sod Cl 1,000 ml @ 100 mls/hr Q10H IV Last a dministered on 02/03/19at 10:57; Admin Dose 100 MLS/HR; Start 02/03/19 at 09:00 Ciprofloxacin/ Dextrose 200 ml @ 200 mls/hr Q12 IVPB Last administered on 02/03/19at 11:04; Admin Dose 200 MLS/HR; Start 02/03/19 at 10:00 Metronidazole 100 ml @ 100 mls/hr Q8 IVPB Last administered on 02/03/19at 12:11; Admin Dose 100 MLS/HR; Start 02/03/19 at 10:00 Ketorolac Tromethamine (Toradol) 30 mg Q6H PRN IV PAIN LEVEL 1-3 Last administered on 02/03/19at 11:04; Admin Dose 30 MG; Start 02/03/19 at 10:00; Stop 02/06/19 at 09:59 KELSEY DAS NP February 03, 2019 14:38
[2019-02-03 14:44] VITALS: BP 136/82; PULSE 83; RESP 16
[2019-02-03 20:00] VITALS: BP 145/76; PULSE 83; RESP 17
[2019-02-04] MEDS: VANCOMYCIN HCL 1.5 GM in SOD CHLORIDE 0.9% 250 ML IVPB SCH ×3 (02:20→18:33)
[2019-02-04 02:26] VITALS: BP 118/79; PULSE 80; RESP 18
[2019-02-04] MEDS: KETOROLAC 30 MG INJ IV PRN ×3 (03:57→17:39)
[2019-02-04] MEDS: D5W-0.45 NACL + KCL 20 MEQ 1,000 ML IV SCH ×2 (05:00→10:33)
[2019-02-04] MEDS: MEROPENEM 1 GM/50ML(PMX) 50 ML IVPB SCH ×3 (06:26→22:07)
[2019-02-04 07:49] VITALS: BP 126/76; PULSE 79; RESP 16
[2019-02-04] MEDS: FAMOTIDINE 20 MG INJ IV SCH ×2 (09:08→20:52)
[2019-02-04] MEDS: HYDROmorphONE 1 MG/ML SYG IV PRN ×2 (09:09→16:42)
[2019-02-04] MEDS ORDERED: POTASSIUM PHOSPHATE 40 MEQ in SOD CHLORIDE 0.9% 250 ML IVPB ONE (09:30)
[2019-02-04] MEDS ORDERED: HYDROCODONE/APAP (5/325) TAB PO PRN (11:30)
--- NOTE | 2019-02-04 11:57 | PN ---
Date/Time of Note Date/Time of Note DATE: 02/04/19 TIME: 11:57 Assessment/Plan VTE Prophylaxis Risk score (from Ns)>0 risk: 1 SCD applied (from Ns): No SCD contraindicated: low risk/ambulating Pharmacological prophylaxis: NA/contraindicated Pharm contraindication: low risk/ambulating Lines/Catheters IV C[facility]ter Type (from [facility]): Saline Lock Urinary Cath still in place: No Assessment/Plan Assessment/Plan 1. Acute diverticulitis with abscess - Remains afebrile and WBC trending downward - Will try advancing to full liquid and monitor for tolerance - CT A/P results noted. - Gen surgery on board and appreciate recommendations. Will monitor for improvement and repeat CT scan to reevaluate size of abscess. - ID on board and appreciate recommendations. Continue on Vanc and Meropenem for now 2. Abdominal pain- improving - Secondary to above - pain control 3. Anxiety - Ativan iv for now 4. Electrolyte derangement - Replete as needed 5. Disposition - Will advance to full liquid and monitor for tolerance. Will repeat CT scan in a couple days to reassess size of abscess Result Diagram: 02/04/19 0448 02/04/19 0448 Results 24hrs Laboratory Tests Test 02/03/19 17:39 02/04/19 04:48 Vancomycin Level Trough 6.4 L White Blood Count 12.5 #H Red Blood Count 4.18 L Hemoglobin 13.1 L Hematocrit 37.6 L Mean Corpuscular Volume 90.0 Mean Corpuscular Hemoglobin 31.3 Mean Corpuscular Hemoglobin Concent 34.8 Red Cell Distribution Width 12.5 Platelet Count 202 Mean Platelet Volume 11.9 H Immature Granulocytes % 0.300 Neutrophils % 83.2 H Lymphocytes % 7.9 L Monocytes % 7.8 Eosinophils % 0.6 Basophils % 0.2 Nucleated Red Blood Cells % 0.0 Immature Granulocytes # 0.040 H Neutrophils # 10.4 H Lymphocytes # 1.0 Monocytes # 1.0 H Eosinophils # 0.1 Basophils # 0.0 Nucleated Red Blood Cells # 0.0 Sodium Level 138 Potassium Level 3.3 L Chloride Level 103 Carbon Dioxide Level 26 Anion Gap 9 Blood Urea Nitrogen 2 L Creatinine 0.65 Glucose Level 146 # Calcium Level 8.7 Phosphorus Level 1.8 L Magnesium Level 1.9 Albumin 3.4 Subjective 24 Hr Interval Summary Free Text/Dictation Patient states he's feeling better but has some LLQ discomfort and bloating with clear liquids. Denies any further fevers, nausea, or vomiting. Exam/Review of Systems Exam Vitals Vital Signs Date Temp Pulse Resp B/P (MAP) Pulse Ox O2 O2 Flow FiO2 Time Delivery Rate 02/04/19 98.5 79 16 126/76 98 07:49 (93) 02/04/19 Room Air 02:26 Intake and Output 02/03/19 02/03/19 02/04/19 1515:00 23:00 07:00 IntakeIntake Total 1550 ml 1395 ml 625 ml BalanceBalance 1550 ml 1395 ml 625 ml Exam General: Patient is laying in bed and answers questions appropriately Neck: Supple, nontender, midline Respiratory: Clear to auscultation bilaterally. no wheezing or rhonchi Cardiovascular: regular rate and rhythm, no obvious murmurs Gastrointestinal: soft, minimal tenderness LLQ, bowel sounds heard. no rebound or guarding Ext: Moves all extremities spontaneously. no edema Skin: No new skin lesions Results Results 24hrs Laboratory Tests Test 02/03/19 17:39 02/04/19 04:48 Vancomycin Level Trough 6.4 L White Blood Count 12.5 #H Red Blood Count 4.18 L Hemoglobin 13.1 L Hematocrit 37.6 L Mean Corpuscular Volume 90.0 Mean Corpuscular Hemoglobin 31.3 Mean Corpuscular Hemoglobin Concent 34.8 Red Cell Distribution Width 12.5 Platelet Count 202 Mean Platelet Volume 11.9 H Immature Granulocytes % 0.300 Neutrophils % 83.2 H Lymphocytes % 7.9 L Monocytes % 7.8 Eosinophils % 0.6 Basophils % 0.2 Nucleated Red Blood Cells % 0.0 Immature Granulocytes # 0.040 H Neutrophils # 10.4 H Lymphocytes # 1.0 Monocytes # 1.0 H Eosinophils # 0.1 Basophils # 0.0 Nucleated Red Blood Cells # 0.0 Sodium Level 138 Potassium Level 3.3 L Chloride Level 103 Carbon Dioxide Level 26 Anion Gap 9 Blood Urea Nitrogen 2 L Creatinine 0.65 Glucose Level 146 # Calcium Level 8.7 Phosphorus Level 1.8 L Magnesium Level 1.9 Albumin 3.4 Medications Medication Current Medications IV Flush (NS 3 ml) 3 ml PER PROTOCOL IV ; Start 02/01/19 at 09:00 Ondansetron HCl (Zofran Inj) 4 mg Q6H PRN IV NAUSEA/VOMITING; Start 02/01/19 at 09:00 Famotidine (Pepcid Iv) 20 mg Q12H IV Last administered on 02/04/19 09:08; Admin Dose 20 MG; Start 02/01/19 at 09:30 Vancomycin HCl (Vanco Iv Per Pharmacy) VANCOMYCIN PER PHARMACY PER PROTOCOL XX ; Start 02/02/19 at 10:30 Hydromorphone HCl (Dilaudid) 1 mg Q2 PRN IV SEVERE PAIN LEVEL 7-10 Last administered on 02/04/19 09:09; Admin Dose 1 MG; Start 02/02/19 at 13:00 Lorazepam (Ativan) 0.5 mg Q6H PRN IV anxiety Last administered on 02/03/19 23:34; Admin Dose 0.5 MG; Start 02/02/19 at 13:00 Potassium Chloride/Dextrose/ Sod Cl 1,000 ml @ 100 mls/hr Q10H IV Last administered on 02/04/19 10:33; Admin Dose 100 MLS/HR; Start 02/03/19 at 09:00 Ketorolac Tromethamine (Toradol) 30 mg Q6H PRN IV PAIN LEVEL 1-3 Last administered on 02/04/19 10:45; Admin Dose 30 MG; Start 02/03/19 at 10:00; Stop 02/06/19 at 09:59 Meropenem/Sodium Chloride 50 ml @ 100 mls/hr Q8 IVPB Last administered on 02/04/19 06:26; Admin Dose 100 MLS/HR; Start 02/03/19 at 15:00 Vancomycin HCl 1.5 gm/Sodium Chloride 250 ml @ 83.333 mls/ hr Q8H IVPB Last administered on 02/04/19 11:43; Admin Dose 83.333 MLS/HR; Start 02/04/19 at 03:00 Potassium Phosphate 40 meq/ Sodium Chloride 259.0909 ml @ 64.773 m... ONCE ONCE IVPB Last administered on 02/04/19 10:32; Admin Dose 64.773 MLS/HR; Start 02/04/19 at 09:30; Stop 02/04/19 at 13:29 Miscellaneous Information (*Rx Drug Level Order Reminder*) 1 1000 ONCE XX ; Start 02/05/19 at 10:00; Stop 02/05/19 at 10:01 Acetaminophen/ Hydrocodone Bitart ([place] (325)) 1 tab Q4H PRN PO SEVERE PAIN LEVEL 7-10; Start 02/04/19 at 11:30 Acetaminophen/ Hydrocodone Bitart ([place] (325)) 1 tab Q6H PRN PO MODERATE PAIN LEVEL 4-6; Start 02/04/19 at 11:30 ARELY DYER MD February 04, 2019 11:57
[2019-02-04] MEDS: HYDROCODONE/APAP (10/325) TAB PO PRN ×2 (13:27→20:52)
--- NOTE | 2019-02-04 14:17 | CONS ---
Assessment/Plan Assessment/Plan Hospital Course (Demo Recall) All noted, no acute events, no fevers Antimicrobials: Vanco, Merrem Physical examination: Well-nourished well-developed middle-aged man who is alert in no distress. Head atraumatic normocephalic. Neck is supple chest rise symmetrical. Breath sounds clear. Heart: S1-S2. Abdomen soft bowel sounds present. Extremities without cyanosis Assessment: 1. Systemic inflammatory response syndrome 2 to #2 2. Acute diverticulitis with abscess Plan: Stable, wbc trending down, continue abx, plan to repeat CT in couple days Consultation Date/Type/Reason Admit Date/Time February 01, 2019 at 08:04 Initial Consult Date 02/01/19 Type of Consult id Date/Time of Note DATE: 02/04/19 TIME: 14:15 Exam/Review of Systems Exam Vitals Vital Signs Date Temp Pulse Resp B/P (MAP) Pulse Ox O2 O2 Flow FiO2 Time Delivery Rate 02/04/19 98.5 79 16 126/76 98 07:49 (93) 02/04/19 Room Air 02:26 Intake and Output 02/03/19 02/03/19 02/04/19 1515:00 23:00 07:00 IntakeIntake Total 1550 ml 1395 ml 625 ml BalanceBalance 1550 ml 1395 ml 625 ml Results Result Diagram: 02/04/19 0448 02/04/19 0448 Results 24hrs Laboratory Tests Test 02/03/19 17:39 02/04/19 04:48 Vancomycin Level Trough 6.4 L White Blood Count 12.5 #H Red Blood Count 4.18 L Hemoglobin 13.1 L Hematocrit 37.6 L Mean Corpuscular Volume 90.0 Mean Corpuscular Hemoglobin 31.3 Mean Corpuscular Hemoglobin Concent 34.8 Red Cell Distribution Width 12.5 Platelet Count 202 Mean Platelet Volume 11.9 H Immature Granulocytes % 0.300 Neutrophils % 83.2 H Lymphocytes % 7.9 L Monocytes % 7.8 Eosinophils % 0.6 Basophils % 0.2 Nucleated Red Blood Cells % 0.0 Immature Granulocytes # 0.040 H Neutrophils # 10.4 H Lymphocytes # 1.0 Monocytes # 1.0 H Eosinophils # 0.1 Basophils # 0.0 Nucleated Red Blood Cells # 0.0 Sodium Level 138 Potassium Level 3.3 L Chloride Level 103 Carbon Dioxide Level 26 Anion Gap 9 Blood Urea Nitrogen 2 L Creatinine 0.65 Glucose Level 146 # Calcium Level 8.7 Phosphorus Level 1.8 L Magnesium Level 1.9 Albumin 3.4 Medications Medication Current Medications IV Flush (NS 3 ml) 3 ml PER PROTOCOL IV ; Start 02/01/19 at 09:00 Ondansetron HCl (Zofran Inj) 4 mg Q6H PRN IV NAUSEA/VOMITING; Start 02/01/19 at 09:00 Famotidine (Pepcid Iv) 20 mg Q12H IV Last administered on 02/04/19 09:08; Admin Dose 20 MG; Start 02/01/19 at 09:30 Vancomycin HCl (Vanco Iv Per Pharmacy) VANCOMYCIN PER PHARMACY PER PROTOCOL XX ; Start 02/02/19 at 10:30 Hydromorphone HCl (Dilaudid) 1 mg Q2 PRN IV SEVERE PAIN LEVEL 7-10 Last administered on 02/04/19 09:09; Admin Dose 1 MG; Start 02/02/19 at 13:00 Lorazepam (Ativan) 0.5 mg Q6H PRN IV anxiety Last administered on 02/03/19 23:34; Admin Dose 0.5 MG; Start 02/02/19 at 13:00 Potassium Chloride/Dextrose/ Sod Cl 1,000 ml @ 100 mls/hr Q10H IV Last administered on 02/04/19 10:33; Admin Dose 100 MLS/HR; Start 02/03/19 at 09:00 Ketorolac Tromethamine (Toradol) 30 mg Q6H PRN IV PAIN LEVEL 1-3 Last a dministered on 02/04/19at 10:45; Admin Dose 30 MG; Start 02/03/19 at 10:00; Stop 02/06/19 at 09:59 Meropenem/Sodium Chloride 50 ml @ 100 mls/hr Q8 IVPB Last administered on 02/04/19 13:30; Admin Dose 100 MLS/HR; Start 02/03/19 at 15:00 Vancomycin HCl 1.5 gm/Sodium Chloride 250 ml @ 83.333 mls/ hr Q8H IVPB Last administered on 02/04/19 11:43; Admin Dose 83.333 MLS/HR; Start 02/04/19 at 03:00 Miscellaneous Information (*Rx Drug Level Order Reminder*) 1 1000 ONCE XX ; Start 02/05/19 at 10:00; Stop 02/05/19 at 10:01 Acetaminophen/ Hydrocodone Bitart ([place] (325)) 1 tab Q4H PRN PO SEVERE PAIN LEVEL 7-10 Last administered on 02/04/19at 13:27; Admin Dose 1 TAB; Start 02/04/19 at 11:30 Acetaminophen/ Hydrocodone Bitart ([place] (325)) 1 tab Q6H PRN PO MODERATE PAIN LEVEL 4-6; Start 02/04/19 at 11:30 KELSEY DAS NP February 04, 2019 14:17
[2019-02-04 14:18] VITALS: BP 120/67; PULSE 80; RESP 16
--- NOTE | 2019-02-04 14:22 | PN ---
Date/Time of Note Date/Time of Note DATE: 02/04/19 TIME: 14:08 Assessment/Plan Lines/Catheters IV Catheter Type (from Nrs): Saline Lock Keyes in Place (from Nrs): No Assessment/Plan Chief Complaint/Hosp Course 1. Recurrent perforated diverticulitis with abscess. HD stable. Improving -Continue iv abx -Liquid diet -ivf -IR to drain abscess (however it is small) -close monitoring and possible need for surgery if not improving or worsening 2. Leukocytosis: Improving -As above -Trend 3. Abdominal pain: Improving -As above 4. Hypokalemia: Replete and monitor Thank you. Patient seen and examined in collaboration with Dr. Chung Beauchamp. Subjective 24 Hr Interval Summary Abdominal pain improving. WBC improving. No fevers, chills, sob, congested cough, cp, palpitations, greene, dizziness, nausea, vomiting, diarrhea, dysuria. Exam/Review of Systems Vital Signs Vitals Vital Signs Date Temp Pulse Resp B/P (MAP) Pulse Ox O2 O2 Flow FiO2 Time Delivery Rate 02/04/19 98.5 79 16 126/76 98 07:49 (93) 02/04/19 Room Air 02:26 Intake and Output 02/03/19 02/03/19 02/04/19 1515:00 23:00 07:00 IntakeIntake Total 1550 ml 1395 ml 625 ml BalanceBalance 1550 ml 1395 ml 625 ml Exam Constitutional: alert, oriented Psych: nl mood/affect; No anxiety Head: normocephalic, atraumatic Eyes: nl conjunctiva, EOMI, nl lids, nl sclera ENMT: nl external ears & nose, nl lips & teeth, nl nasal mucosa & septum, mucosa pink and moist Neck: supple, non-tender Respiratory: normal air movement; No congested cough Cardiovascular: regular rate and rhythm, nl pulses Gastrointestinal: soft, tender (Bilateral lower quadrants) Genitourinary - Male: nl scrotum Musculoskeletal: nl extremities to inspection, nl gait and stance Extremities: normal pulses Neurological: nl mental status, nl speech, nl strength Results Result Diagram: 02/04/19 0448 02/04/19 0448 FOREST LOWE NP February 04, 2019 14:22
[2019-02-04 19:54] VITALS: BP 122/98; PULSE 66; RESP 18
[2019-02-04] MEDS: ACETAMINOPHEN 1000MG/100ML IV 100 ML IVPB PRN (22:57)
[2019-02-05] MEDS: D5W-0.45 NACL + KCL 20 MEQ 1,000 ML IV SCH ×2 (01:00→11:24)
[2019-02-05] MEDS: KETOROLAC 30 MG INJ IV PRN ×4 (01:41→23:10)
[2019-02-05 02:17] VITALS: BP 112/59; PULSE 83; RESP 18
[2019-02-05] MEDS: VANCOMYCIN HCL 1.5 GM in SOD CHLORIDE 0.9% 250 ML IVPB SCH ×3 (02:45→18:57)
[2019-02-05] MEDS: LORAZEPAM 2 MG INJ IV PRN (06:00)
[2019-02-05] MEDS: MEROPENEM 1 GM/50ML(PMX) 50 ML IVPB SCH ×3 (06:00→23:02)
[2019-02-05 08:11] VITALS: BP 131/68; PULSE 88; RESP 18
[2019-02-05] MEDS: FAMOTIDINE 20 MG INJ IV SCH ×2 (08:37→22:59)
[2019-02-05] MEDS ORDERED: POTASSIUM CHLORIDE (SR) 20 MEQ TAB PO STA (08:44)
--- NOTE | 2019-02-05 12:18 | PN ---
Date/Time of Note Date/Time of Note DATE: 02/05/19 TIME: 12:16 Assessment/Plan VTE Prophylaxis Risk score (from Ns)>0 risk: 1 SCD applied (from Ns): No SCD contraindicated: low risk/ambulating Pharmacological prophylaxis: NA/contraindicated Pharm contraindication: low risk/ambulating Lines/Catheters IV Catheter Type (from [facility] [place] Saline Lock Urinary Cath still in place: No Assessment/Plan Assessment/Plan 1. Acute diverticulitis with abscess - will try advancing diet to soft, bland and monitor tolerance - WBC still elevated but no fevers appreciated - CT A/P results noted and will repeat tomorrow to reassess abscess - Gen surgery on board and appreciate recommendations. - ID on board and appreciate recommendations. Continue on Vanc and Meropenem for now 2. Abdominal pain- improving - Secondary to above - pain control 3. Anxiety - Ativan iv for now 4. Electrolyte derangement - Replete as needed 5. Disposition - Advance to soft diet and recheck CT A/P tomorrow to evaluate size of abscess Result Diagram: 02/05/19 0433 02/05/19 0436 Results 24hrs Laboratory Tests Test 02/05/19 04:33 02/05/19 04:36 02/05/19 10:29 White Blood Count 12.8 H Red Blood Count 4.12 L Hemoglobin 13.0 L Hematocrit 37.2 L Mean Corpuscular Volume 90.3 Mean Corpuscular Hemoglobin 31.6 Mean Corpuscular Hemoglobin Concent 34.9 Red Cell Distribution Width 12.5 Platelet Count 225 Mean Platelet Volume 12.0 H Immature Granulocytes % 0.500 H Neutrophils % 77.9 H Lymphocytes % 12.0 L Monocytes % 8.7 Eosinophils % 0.7 Basophils % 0.2 Nucleated Red Blood Cells % 0.0 Immature Granulocytes # 0.060 H Neutrophils # 10.0 H Lymphocytes # 1.5 Monocytes # 1.1 H Eosinophils # 0.1 Basophils # 0.0 Nucleated Red Blood Cells # 0.0 Sodium Level 140 Potassium Level 3.6 Chloride Level 105 Carbon Dioxide Level 27 Anion Gap 8 Blood Urea Nitrogen < 2 L Creatinine 0.57 L Glucose Level 105 # Calcium Level 8.7 Phosphorus Level 3.3 Magnesium Level 1.9 Albumin 3.3 Vancomycin Level Trough 10.3 Subjective 24 Hr Interval Summary Free Text/Dictation Patient is tolerating full liquid diet and states pain has improved. Still with discomfort but bloating resolved. Exam/Review of Systems Exam Vitals Vital Signs Date Temp Pulse Resp B/P (MAP) Pulse Ox O2 O2 Flow FiO2 Time Delivery Rate 02/05/19 98.8 88 18 131/68 98 08:11 (89) 02/04/19 Room Air 02:26 Intake and Output 02/04/19 02/04/19 02/05/19 1515:00 23:00 07:00 IntakeIntake Total 1979.0909 ml 1330 ml 550 ml BalanceBalance 1979.0909 ml 1330 ml 550 ml Exam General: Patient is laying in bed and answers questions appropriately Neck: Supple, nontender, midline Respiratory: Clear to auscultation bilaterally. no wheezing or rhonchi Cardiovascular: regular rate and rhythm, no obvious murmurs Gastrointestinal: soft, mildly tender LLQ, bowel sounds heard. no rebound or guarding Ext: Moves all extremities spontaneously. no edema Skin: No new skin lesions Results Results 24hrs Laboratory Tests Test 02/05/19 04:33 02/05/19 04:36 02/05/19 10:29 White Blood Count 12.8 H Red Blood Count 4.12 L Hemoglobin 13.0 L Hematocrit 37.2 L Mean Corpuscular Volume 90.3 Mean Corpuscular Hemoglobin 31.6 Mean Corpuscular Hemoglobin Concent 34.9 Red Cell Distribution Width 12.5 Platelet Count 225 Mean Platelet Volume 12.0 H Immature Granulocytes % 0.500 H Neutrophils % 77.9 H Lymphocytes % 12.0 L Monocytes % 8.7 Eosinophils % 0.7 Basophils % 0.2 Nucleated Red Blood Cells % 0.0 Immature Granulocytes # 0.060 H Neutrophils # 10.0 H Lymphocytes # 1.5 Monocytes # 1.1 H Eosinophils # 0.1 Basophils # 0.0 Nucleated Red Blood Cells # 0.0 Sodium Level 140 Potassium Level 3.6 Chloride Level 105 Carbon Dioxide Level 27 Anion Gap 8 Blood Urea Nitrogen < 2 L Creatinine 0.57 L Glucose Level 105 # Calcium Level 8.7 Phosphorus Level 3.3 Magnesium Level 1.9 Albumin 3.3 Vancomycin Level Trough 10.3 Medications Medication Current Medications IV Flush (NS 3 ml) 3 ml PER PROTOCOL IV ; Start 02/01/19 at 09:00 Ondansetron HCl (Zofran Inj) 4 mg Q6H PRN IV NAUSEA/VOMITING; Start 02/01/19 at 09:00 Famotidine (Pepcid Iv) 20 mg Q12H IV Last administered on 02/05/19at 08:37; Admin Dose 20 MG; Start 02/01/19 at 09:30 Vancomycin HCl (Vanco Iv Per Pharmacy) VANCOMYCIN PER PHARMACY PER PROTOCOL XX ; Start 02/02/19 at 10:30 Hydromorphone HCl (Dilaudid) 1 mg Q2 PRN IV SEVERE PAIN LEVEL 7-10 Last administered on 02/04/19at 16:42; Admin Dose 1 MG; Start 02/02/19 at 13:00 Lorazepam (Ativan) 0.5 mg Q6H PRN IV anxiety Last administered on 02/05/19 06:00; Admin Dose 0.5 MG; Start 02/02/19 at 13:00 Ketorolac Tromethamine (Toradol) 30 mg Q6H PRN IV PAIN LEVEL 1-3 Last administered on 02/05/19 07:41; Admin Dose 30 MG; Start 02/03/19 at 10:00; Stop 02/06/19 at 09:59 Meropenem/Sodium Chloride 50 ml @ 100 mls/hr Q8 IVPB Last administered on 02/05/19at 06:00; Admin Dose 100 MLS/HR; Start 02/03/19 at 15:00 Vancomycin HCl 1.5 gm/Sodium Chloride 250 ml @ 83.333 mls/ hr Q8H IVPB Last administered on 02/05/19at 11:57; Admin Dose 83.333 MLS/HR; Start 02/04/19 at 03:00 Acetaminophen/ Hydrocodone Bitart ([place] (10/325)) 1 tab Q4H PRN PO SEVERE PAIN LEVEL 7-10 Last administered on 02/04/19at 20:52; Admin Dose 1 TAB; Start 02/04/19 at 11:30 Acetaminophen/ Hydrocodone Bitart ([place] (5/325)) 1 tab Q6H PRN PO MODERATE PAIN LEVEL 4-6; Start 02/04/19 at 11:30 Acetaminophen 100 ml @ 400 mls/hr Q6H PRN IVPB PAIN Last administered on 02/04/19at 22:57; Admin Dose 400 MLS/HR; Start 02/04/19 at 22:30; Stop 02/05/19 at 22:29 ARELY DYER MD February 05, 2019 12:18
[2019-02-05] MEDS: ACETAMINOPHEN 1000MG/100ML IV 100 ML IVPB PRN (12:20)
--- NOTE | 2019-02-05 13:56 | CONS ---
Assessment/Plan Assessment/Plan Hospital Course (Demo Recall) Patient is alert feels better still with some mild abdominal pain left lower quadrant. No fevers nausea vomiting diarrhea. WBC 12.8 neutrophils 77.9 BUN 8 creatinine 2 Antimicrobials: Vanco, Merrem Physical examination: Well-nourished well-developed middle-aged man who is alert in no distress. Head atraumatic normocephalic. Neck is supple chest rise symmetrical. Breath sounds clear. Heart: S1-S2. Abdomen soft bowel sounds present. Extremities without cyanosis Assessment: 1. Systemic inflammatory response syndrome 2 to #2 2. Acute diverticulitis with abscess Plan: Remains stable, continue abx, plan to repeat CT in am Consultation Date/Type/Reason Admit Date/Time February 01, 2019 at 08:04 Initial Consult Date 02/01/19 Type of Consult id Date/Time of Note DATE: 02/05/19 TIME: 13:55 Exam/Review of Systems Exam Vitals Vital Signs Date Temp Pulse Resp B/P (MAP) Pulse Ox O2 O2 Flow FiO2 Time Delivery Rate 02/05/19 98.8 88 18 131/68 98 08:11 (89) 02/04/19 Room Air 02:26 Intake and Output 02/04/19 02/04/19 02/05/19 1515:00 23:00 07:00 IntakeIntake Total 1979.0909 ml 1330 ml 550 ml BalanceBalance 1979.0909 ml 1330 ml 550 ml Results Result Diagram: 02/05/19 0433 02/05/19 0436 Results 24hrs Laboratory Tests Test 02/05/19 04:33 02/05/19 04:36 02/05/19 10:29 White Blood Count 12.8 H Red Blood Count 4.12 L Hemoglobin 13.0 L Hematocrit 37.2 L Mean Corpuscular Volume 90.3 Mean Corpuscular Hemoglobin 31.6 Mean Corpuscular Hemoglobin Concent 34.9 Red Cell Distribution Width 12.5 Platelet Count 225 Mean Platelet Volume 12.0 H Immature Granulocytes % 0.500 H Neutrophils % 77.9 H Lymphocytes % 12.0 L Monocytes % 8.7 Eosinophils % 0.7 Basophils % 0.2 Nucleated Red Blood Cells % 0.0 Immature Granulocytes # 0.060 H Neutrophils # 10.0 H Lymphocytes # 1.5 Monocytes # 1.1 H Eosinophils # 0.1 Basophils # 0.0 Nucleated Red Blood Cells # 0.0 Sodium Level 140 Potassium Level 3.6 Chloride Level 105 Carbon Dioxide Level 27 Anion Gap 8 Blood Urea Nitrogen < 2 L Creatinine 0.57 L Glucose Level 105 # Calcium Level 8.7 Phosphorus Level 3.3 Magnesium Level 1.9 Albumin 3.3 Vancomycin Level Trough 10.3 Medications Medication Current Medications IV Flush (NS 3 ml) 3 ml PER PROTOCOL IV ; Start 02/01/19 at 09:00 Ondansetron HCl (Zofran Inj) 4 mg Q6H PRN IV NAUSEA/VOMITING; Start 02/01/19 at 09:00 Famotidine (Pepcid Iv) 20 mg Q12H IV Last administered on 02/05/19 08:37; Admin Dose 20 MG; Start 02/01/19 at 09:30 Vancomycin HCl (Vanco Iv Per Pharmacy) VANCOMYCIN PER PHARMACY PER PROTOCOL XX ; Start 02/02/19 at 10:30 Hydromorphone HCl (Dilaudid) 1 mg Q2 PRN IV SEVERE PAIN LEVEL 7-10 Last administered on 02/04/19 16:42; Admin Dose 1 MG; Start 02/02/19 at 13:00 Lorazepam (Ativan) 0.5 mg Q6H PRN IV anxiety Last administered on 02/05/19 06:00; Admin Dose 0.5 MG; Start 02/02/19 at 13:00 Ketorolac Tromethamine (Toradol) 30 mg Q6H PRN IV PAIN LEVEL 1-3 Last administered on 02/05/19 07:41; Admin Dose 30 MG; Start 02/03/19 at 10:00; Stop 02/06/19 at 09:59 Meropenem/Sodium Chloride 50 ml @ 100 mls/hr Q8 IVPB Last administered on 06:00; Admin Dose 100 MLS/HR; Start 02/03/19 at 15:00 Vancomycin HCl 1.5 gm/Sodium Chloride 250 ml @ 83.333 mls/ hr Q8H IVPB Last administered on 02/05/19 11:57; Admin Dose 83.333 MLS/HR; Start 02/04/19 at 03:00 Acetaminophen/ Hydrocodone Bitart ([place] (325)) 1 tab Q4H PRN PO SEVERE PAIN LEVEL 7-10 Last administered on 5/14/19at 20:52; Admin Dose 1 TAB; Start 02/04/19 at 11:30 Acetaminophen/ Hydrocodone Bitart ([place] (5/325)) 1 tab Q6H PRN PO MODERATE PAIN LEVEL 4-6; Start 02/04/19 at 11:30 Acetaminophen 100 ml @ 400 mls/hr Q6H PRN IVPB PAIN Last administered on 02/05/19at 12:20; Admin Dose 400 MLS/HR; Start 02/04/19 at 22:30; Stop 02/05/19 at 22:29 KELSEY DAS NP February 05, 2019 13:56
[2019-02-05 15:22] VITALS: BP 119/69; PULSE 86; RESP 19
[2019-02-05 20:02] VITALS: BP 118/73; PULSE 83; RESP 18
--- NOTE | 2019-02-06 00:21 | PN ---
Date/Time of Note Date/Time of Note DATE: 02/03/19 TIME: 22:20 Assessment/Plan Lines/Catheters IV Catheter Type (from [facility]): Saline Lock [place] in Place (from [facility]): No Assessment/Plan Chief Complaint/Hosp Course 1. Recurrent perforated diverticulitis with abscess. HD stable. Improving -Continue iv abx -Liquid diet -ivf -IR to drain abscess (however it is small) -close monitoring and possible need for surgery if not improving or worsening 2. Leukocytosis: Improving -As above -Trend 3. Abdominal pain: Improving -As above 4. Hypokalemia: Replete and monitor Thank you, Late entry 02/03 Subjective 24 Hr Interval Summary Abdominal pain improving. WBC improving. No fevers, chills, sob, congested cough, cp, palpitations, greene, dizziness, nausea, vomiting, diarrhea, dysuria. Exam/Review of Systems Vital Signs Vitals Vital Signs Date Temp Pulse Resp B/P (MAP) Pulse Ox O2 O2 Flow FiO2 Time Delivery Rate 02/05/19 100.3 83 18 118/73 99 20:02 (88) 02/04/19 Room Air 02:26 Intake and Output 02/05/19 02/05/19 02/06/19 1515:00 23:00 07:00 IntakeIntake Total 1500 ml 1250 ml BalanceBalance 1500 ml 1250 ml Exam Free Text/Dictation Constitutional: alert, oriented Psych: nl mood/affect; No anxiety Head: normocephalic, atraumatic Eyes: nl conjunctiva, EOMI, nl lids, nl sclera ENMT: nl external ears & nose, nl lips & teeth, nl nasal mucosa & septum, mucosa pink and moist Neck: supple, non-tender Respiratory: normal air movement; No congested cough Cardiovascular: regular rate and rhythm, nl pulses Gastrointestinal: soft, tender (Bilateral lower quadrants) Genitourinary - Male: nl scrotum Musculoskeletal: nl extremities to inspection, nl gait and stance Extremities: normal pulses Neurological: nl mental status, nl speech, nl strength Results Result Diagram: 02/05/19 0433 02/05/19 0436 BARBARA JACOBS MD February 06, 2019 00:21
--- NOTE | 2019-02-06 00:26 | PN ---
Date/Time of Note Date/Time of Note DATE: 02/05/19 TIME: 22:24 Assessment/Plan Lines/Catheters IV Catheter Type (from Nrs): [place] in Place (from Nrs): No Assessment/Plan Chief Complaint/Hosp Course 1. Recurrent perforated diverticulitis with abscess. HD stable. Improving -Continue iv abx -Liquid diet -ivf -IR unable to drain collection (small) > repeat imaging tomorrow -close monitoring and possible need for surgery if not improving or worsening 2. Leukocytosis: Improving -As above -Trend 3. Abdominal pain: Improving -As above Thank you, Late entry 02/05 Subjective 24 Hr Interval Summary Abdominal pain improved. Bowel function. WBC 12. Low grade temp today. No chills, sob, congested cough, cp, palpitations, greene, dizziness, nausea, vomiting, diarrhea, dysuria. Exam/Review of Systems Vital Signs Vitals Vital Signs Date Temp Pulse Resp B/P (MAP) Pulse Ox O2 O2 Flow FiO2 Time Delivery Rate 02/05/19 100.3 83 18 118/73 99 20:02 (88) 02/04/19 Room Air 02:26 Intake and Output 02/05/19 02/05/19 02/06/19 1515:00 23:00 07:00 IntakeIntake Total 1500 ml 1250 ml BalanceBalance 1500 ml 1250 ml Exam Free Text/Dictation Constitutional: alert, oriented Psych: nl mood/affect; No anxiety Head: normocephalic, atraumatic Eyes: nl conjunctiva, EOMI, nl lids, nl sclera ENMT: nl external ears & nose, nl lips & teeth, nl nasal mucosa & septum, mucosa pink and moist Neck: supple, non-tender Respiratory: normal air movement; No congested cough Cardiovascular: regular rate and rhythm, nl pulses Gastrointestinal: soft, NT, obese Genitourinary - Male: nl scrotum Musculoskeletal: nl extremities to inspection, nl gait and stance Extremities: normal pulses Neurological: nl mental status, nl speech, nl strength Results Result Diagram: 02/05/19 0433 02/05/19 0436 BARBARA JACOBS MD February 06, 2019 00:26
[2019-02-06 01:26] VITALS: BP 110/69; PULSE 78; RESP 18
[2019-02-06] MEDS: LORAZEPAM 2 MG INJ IV PRN (02:32)
[2019-02-06] MEDS: VANCOMYCIN HCL 1.5 GM in SOD CHLORIDE 0.9% 250 ML IVPB SCH ×3 (02:32→20:08)
[2019-02-06] MEDS: KETOROLAC 30 MG INJ IV PRN ×3 (05:27→21:54)
[2019-02-06] MEDS: MEROPENEM 1 GM/50ML(PMX) 50 ML IVPB SCH ×3 (06:06→23:28)
[2019-02-06] MEDS ORDERED: IOHEXOL 300MG/ML 150 ML BTL ONE (07:30)
[2019-02-06] MEDS ORDERED: SOD CHLORIDE 0.9% 100 ML ONE (07:30)
[2019-02-06 08:19] VITALS: BP 133/81; PULSE 81; RESP 19
[2019-02-06] MEDS: FAMOTIDINE 20 MG INJ IV SCH ×2 (08:26→21:53)
[2019-02-06] MEDS: ACETAMINOPHEN 1000MG/100ML IV 100 ML IVPB PRN ×2 (08:28→16:55)
--- NOTE | 2019-02-06 11:07 | PN ---
Date/Time of Note Date/Time of Note DATE: 02/06/19 TIME: 11:07 Assessment/Plan VTE Prophylaxis Risk score (from Ns)>0 risk: 1 SCD applied (from Ns): No SCD contraindicated: low risk/ambulating Pharmacological prophylaxis: NA/contraindicated Pharm contraindication: low risk/ambulating Lines/Catheters [facility] Saline Lock Urinary Cath still in place: No Assessment/Plan Assessment/Plan 1. Acute diverticulitis with abscess - Repeat CT scan shows increased size of the abscess and due to location not amenable to percutaneous drainage - General surgery on board and appreciate recommendations. Informed about new CT scan findings - WBC still elevated but remains afebrile - ID on board and appreciate recommendations. Continue on Vanc and Meropenem and will add antifungal coverage 2. Abdominal pain- stable - Secondary to above - pain control 3. Anxiety - Ativan PRN 4. Disposition - Given increased size of abscess, awaiting further recommendations from surgery regarding plan of care Result Diagram: 02/06/19 0453 02/06/19 0453 Results 24hrs Laboratory Tests Test 02/06/19 04:53 White Blood Count 15.0 H Red Blood Count 4.21 L Hemoglobin 13.2 L Hematocrit 38.1 L Mean Corpuscular Volume 90.5 Mean Corpuscular Hemoglobin 31.4 Mean Corpuscular Hemoglobin Concent 34.6 Red Cell Distribution Width 12.6 Platelet Count 248 Mean Platelet Volume 11.7 H Immature Granulocytes % 0.500 H Neutrophils % 85.5 H Lymphocytes % 6.0 L Monocytes % 7.1 Eosinophils % 0.6 Basophils % 0.3 Nucleated Red Blood Cells % 0.0 Immature Granulocytes # 0.080 H Neutrophils # 12.8 H Lymphocytes # 0.9 Monocytes # 1.1 H Eosinophils # 0.1 Basophils # 0.0 Nucleated Red Blood Cells # 0.0 Sodium Level 141 Potassium Level 3.7 Chloride Level 107 Carbon Dioxide Level 24 Anion Gap 10 Blood Urea Nitrogen 3 L Creatinine 0.53 L Glucose Level 121 Calcium Level 8.7 Phosphorus Level 3.3 Magnesium Level 2.0 Albumin 3.4 Subjective 24 Hr Interval Summary Free Text/Dictation Patient is depressed the abscess grew and worried about needing to undergo a surgical procedure with a large incision. Tolerating soft diet. Exam/Review of Systems Exam Vitals Vital Signs Date Temp Pulse Resp B/P (MAP) Pulse Ox O2 O2 Flow FiO2 Time Delivery Rate 02/06/19 97.8 81 19 133/81 100 08:19 (98) 02/04/19 Room Air 02:26 Intake and Output 02/05/19 02/05/19 02/06/19 1515:00 23:00 07:00 IntakeIntake Total 1500 ml 1500 ml 350 ml BalanceBalance 1500 ml 1500 ml 350 ml Exam General: Patient is laying in bed and answers questions appropriately Neck: Supple, nontender, midline Respiratory: Clear to auscultation bilaterally. no wheezing or rhonchi Cardiovascular: regular rate and rhythm, no obvious murmurs Gastrointestinal: soft, mildly tender LLQ, bowel sounds heard. no rebound or guarding Ext: Moves all extremities spontaneously. no edema Skin: No new skin lesions Results Results 24hrs Laboratory Tests Test 02/06/19 04:53 White Blood Count 15.0 H Red Blood Count 4.21 L Hemoglobin 13.2 L Hematocrit 38.1 L Mean Corpuscular Volume 90.5 Mean Corpuscular Hemoglobin 31.4 Mean Corpuscular Hemoglobin Concent 34.6 Red Cell Distribution Width 12.6 Platelet Count 248 Mean Platelet Volume 11.7 H Immature Granulocytes % 0.500 H Neutrophils % 85.5 H Lymphocytes % 6.0 L Monocytes % 7.1 Eosinophils % 0.6 Basophils % 0.3 Nucleated Red Blood Cells % 0.0 Immature Granulocytes # 0.080 H Neutrophils # 12.8 H Lymphocytes # 0.9 Monocytes # 1.1 H Eosinophils # 0.1 Basophils # 0.0 Nucleated Red Blood Cells # 0.0 Sodium Level 141 Potassium Level 3.7 Chloride Level 107 Carbon Dioxide Level 24 Anion Gap 10 Blood Urea Nitrogen 3 L Creatinine 0.53 L Glucose Level 121 Calcium Level 8.7 Phosphorus Level 3.3 Magnesium Level 2.0 Albumin 3.4 Medications Medication Current Medications IV Flush (NS 3 ml) 3 ml PER PROTOCOL IV ; Start 02/01/19 at 09:00 Ondansetron HCl (Zofran Inj) 4 mg Q6H PRN IV NAUSEA/VOMITING; Start 02/01/19 at 09:00 Famotidine (Pepcid Iv) 20 mg Q12H IV Last administered on 02/06/19at 08:26; Admin Dose 20 MG; Start 02/01/19 at 09:30 Vancomycin HCl (Vanco Iv Per Pharmacy) VANCOMYCIN PER PHARMACY PER PROTOCOL XX ; Start 02/02/19 at 10:30 Hydromorphone HCl (Dilaudid) 1 mg Q2 PRN IV SEVERE PAIN LEVEL 7-10 Last administered on 02/04/19at 16:42; Admin Dose 1 MG; Start 02/02/19 at 13:00 Lorazepam (Ativan) 0.5 mg Q6H PRN IV anxiety Last administered on 02/06/19at 02:32; Admin Dose 0.5 MG; Start 02/02/19 at 13:00 Meropenem/Sodium Chloride 50 ml @ 100 mls/hr Q8 IVPB Last administered on 02/06/19at 06:06; Admin Dose 100 MLS/HR; Start 02/03/19 at 15:00 Vancomycin HCl 1.5 gm/Sodium Chloride 250 ml @ 83.333 mls/ hr Q8H IVPB Last administered on 02/06/19at 02:32; Admin Dose 83.333 MLS/HR; Start 02/04/19 at 03:00 Acetaminophen/ Hydrocodone Bitart ([place] (10/325)) 1 tab Q4H PRN PO SEVERE PAIN LEVEL 7-10 Last administered on 02/04/19at 20:52; Admin Dose 1 TAB; Start 02/04/19 at 11:30 Acetaminophen/ Hydrocodone Bitart ([place] (5/325)) 1 tab Q6H PRN PO MODERATE PAIN LEVEL 4-6; Start 02/04/19 at 11:30 Acetaminophen 100 ml @ 400 mls/hr Q6H PRN IVPB MILD PAIN 1-3 Last administered on 02/06/19at 08:28; Admin Dose 400 MLS/HR; Start 02/06/19 at 02:30; Stop 02/07/19 at 02:29 ARELY DYER MD February 06, 2019 11:07
--- NOTE | 2019-02-06 12:44 | CONS ---
Assessment/Plan Assessment/Plan Hospital Course (Demo Recall) Patient is alert feels ok, no fevers CT of the abdomen and pelvis this morning revealed increased in size fluid collection now 6.2 cm in largest diameter. Please see full report in the chart Antimicrobials: Crista Velazquez Physical examination: Well-nourished well-developed middle-aged man who is alert in no distress. Head atraumatic normocephalic. Neck is supple chest rise symmetrical. Breath sounds clear. Heart: S1-S2. Abdomen soft bowel sounds present. Extremities without cyanosis Assessment: 1. Systemic inflammatory response syndrome 2 to #2 2. Acute diverticulitis with abscess Plan: Clinically stable, will add empiric antifungal coverage, continue abx, surgical recommendations Consultation Date/Type/Reason Admit Date/Time February 01, 2019 at 08:04 Initial Consult Date 02/01/19 Type of Consult id Date/Time of Note DATE: 02/06/19 TIME: 12:43 Exam/Review of Systems Exam Vitals Vital Signs Date Temp Pulse Resp B/P (MAP) Pulse Ox O2 O2 Flow FiO2 Time Delivery Rate 02/06/19 97.8 81 19 133/81 100 08:19 (98) 02/04/19 Room Air 02:26 Intake and Output 02/05/19 02/05/19 02/06/19 1515:00 23:00 07:00 IntakeIntake Total 1500 ml 1500 ml 350 ml BalanceBalance 1500 ml 1500 ml 350 ml Results Result Diagram: 02/06/19 0453 02/06/19 0453 Results 24hrs Laboratory Tests Test 02/06/19 04:53 White Blood Count 15.0 H Red Blood Count 4.21 L Hemoglobin 13.2 L Hematocrit 38.1 L Mean Corpuscular Volume 90.5 Mean Corpuscular Hemoglobin 31.4 Mean Corpuscular Hemoglobin Concent 34.6 Red Cell Distribution Width 12.6 Platelet Count 248 Mean Platelet Volume 11.7 H Immature Granulocytes % 0.500 H Neutrophils % 85.5 H Lymphocytes % 6.0 L Monocytes % 7.1 Eosinophils % 0.6 Basophils % 0.3 Nucleated Red Blood Cells % 0.0 Immature Granulocytes # 0.080 H Neutrophils # 12.8 H Lymphocytes # 0.9 Monocytes # 1.1 H Eosinophils # 0.1 Basophils # 0.0 Nucleated Red Blood Cells # 0.0 Sodium Level 141 Potassium Level 3.7 Chloride Level 107 Carbon Dioxide Level 24 Anion Gap 10 Blood Urea Nitrogen 3 L Creatinine 0.53 L Glucose Level 121 Calcium Level 8.7 Phosphorus Level 3.3 Magnesium Level 2.0 Albumin 3.4 Medications Medication Current Medications IV Flush (NS 3 ml) 3 ml PER PROTOCOL IV ; Start 02/01/19 at 09:00 Ondansetron HCl (Zofran Inj) 4 mg Q6H PRN IV NAUSEA/VOMITING; Start 02/01/19 at 09:00 Famotidine (Pepcid Iv) 20 mg Q12H IV Last administered on 02/06/19 08:26; Admin Dose 20 MG; Start 02/01/19 at 09:30 Vancomycin HCl (Vanco Iv Per Pharmacy) VANCOMYCIN PER PHARMACY PER PROTOCOL XX ; Start 02/02/19 at 10:30 Hydromorphone HCl (Dilaudid) 1 mg Q2 PRN IV SEVERE PAIN LEVEL 7-10 Last administered on 02/04/19at 16:42; Admin Dose 1 MG; Start 02/02/19 at 13:00 Lorazepam (Ativan) 0.5 mg Q6H PRN IV anxiety Last administered on 02/06/19 02:32; Admin Dose 0.5 MG; Start 02/02/19 at 13:00 Meropenem/Sodium Chloride 50 ml @ 100 mls/hr Q8 IVPB Last administered on 02/06/19at 06:06; Admin Dose 100 MLS/HR; Start 02/03/19 at 15:00 Vancomycin HCl 1.5 gm/Sodium Chloride 250 ml @ 83.333 mls/ hr Q8H IVPB Last administered on 02/06/19at 11:33; Admin Dose 83.333 MLS/HR; Start 02/04/19 at 03:00 Acetaminophen/ Hydrocodone Bitart ([place] (10/325)) 1 tab Q4H PRN PO SEVERE PAIN LEVEL 7-10 Last administered on 02/04/19at 20:52; Admin Dose 1 TAB; Start 02/04/19 at 11:30 Acetaminophen/ Hydrocodone Bitart ([place] (5/325)) 1 tab Q6H PRN PO MODERATE PAIN LEVEL 4-6; Start 02/04/19 at 11:30 Acetaminophen 100 ml @ 400 mls/hr Q6H PRN IVPB MILD PAIN 1-3 Last administered on 02/06/19at 08:28; Admin Dose 400 MLS/HR; Start 02/06/19 at 02:30; Stop 02/07/19 at 02:29 Ketorolac Tromethamine (Toradol) 30 mg Q6H PRN IV PAIN LEVEL 1-3 Last administered on 02/06/19at 12:18; Admin Dose 30 MG; Start 02/06/19 at 12:30; Stop 02/09/19 at 12:29 KELSEY DAS NP February 06, 2019 12:44
[2019-02-06 14:30] VITALS: BP 119/68; RESP 19
--- NOTE | 2019-02-06 18:06 | PN ---
Date/Time of Note Date/Time of Note DATE: 02/06/19 TIME: 17:47 Assessment/Plan Lines/Catheters IV Catheter Type (from [facility]): [place] in Place (from [facility]): No Assessment/Plan Chief Complaint/Hosp Course 1. Recurrent perforated diverticulitis with abscess. HD stable: Repeat ct: acute diverticulitis of the sigmoid colon with slight progression of the pe risigmoid inflammation and induration. Increase in size of perisigmoid fluid collection currently measures 6.2 cm in largest diameter. This was measured 3.8 cm in prior study. -Continue iv abx -Liquid diet -ivf -IR to drain abscess>spoke with IR who states area is accessible will order IR drain 2. Leukocytosis: -As above -Trend 3. Abdominal pain: Improving -As above Thank you. Patient seen and examined in collaboration with Dr. Chung Beauchamp. Subjective 24 Hr Interval Summary Feels well. No fevers, chills, sob, congested cough, cp, palpitations, greene, d izziness, n/v/d/dysuria. Exam/Review of Systems Vital Signs Vitals Vital Signs Date Temp Pulse Resp B/P (MAP) Pulse Ox O2 O2 Flow FiO2 Time Delivery Rate 02/06/19 98.8 19 119/68 98 14:30 (85) 02/06/19 81 08:19 02/04/19 Room Air 02:26 Intake and Output 02/05/19 02/05/19 02/06/19 1414:59 22:59 06:59 IntakeIntake Total 1500 ml 1500 ml 350 ml BalanceBalance 1500 ml 1500 ml 350 ml Exam Free Text/Dictation Constitutional: alert, oriented Psych: nl mood/affect; No anxiety Head: normocephalic, atraumatic Eyes: nl conjunctiva, EOMI, nl lids, nl sclera ENMT: nl external ears & nose, nl lips & teeth, nl nasal mucosa & septum, mucosa pink and moist Neck: supple, non-tender Respiratory: normal air movement; No congested cough Cardiovascular: regular rate and rhythm, nl pulses Gastrointestinal: soft, NT, obese Genitourinary - Male: nl scrotum Musculoskeletal: nl extremities to inspection, nl gait and stance Extremities: normal pulses Neurological: nl mental status, nl speech, nl strength Results Result Diagram: 02/06/19 0453 02/06/19 0453 FOREST LOWE NP February 06, 2019 17:58
[2019-02-06 19:40] VITALS: BP 118/61; PULSE 92; RESP 18
[2019-02-07 02:25] VITALS: BP 118/71; PULSE 69; RESP 18
[2019-02-07] MEDS: VANCOMYCIN HCL 1.5 GM in SOD CHLORIDE 0.9% 250 ML IVPB SCH ×3 (02:33→20:07)
[2019-02-07] MEDS: KETOROLAC 30 MG INJ IV PRN ×3 (04:23→22:32)
[2019-02-07] MEDS: MEROPENEM 1 GM/50ML(PMX) 50 ML IVPB SCH ×3 (05:41→23:09)
[2019-02-07 07:48] VITALS: BP 134/75; PULSE 78; RESP 18
[2019-02-07] MEDS: FAMOTIDINE 20 MG INJ IV SCH ×2 (08:53→20:59)
[2019-02-07] MEDS: ACETAMINOPHEN 1000MG/100ML IV 100 ML IVPB PRN ×2 (08:58→19:43)
[2019-02-07] MEDS ORDERED: ACETAMINOPHEN 1000MG/100ML IV 100 ML IVPB SCH (09:00)
--- NOTE | 2019-02-07 11:19 | PN ---
Date/Time of Note Date/Time of Note DATE: 02/07/19 TIME: 11:19 Assessment/Plan VTE Prophylaxis Risk score (from Ns)>0 risk: 1 SCD applied (from Ns): No SCD contraindicated: low risk/ambulating Pharmacological prophylaxis: NA/contraindicated Pharm contraindication: low risk/ambulating Lines/Catheters IV [facility]from [facility] Saline Lock Urinary Cath still in place: No Assessment/Plan Assessment/Plan 1. Acute diverticulitis with phlegmon - General Surgery spoke with IR and unable to drain since only phlegmon present and no fluid to drain. Not surgical candidate at this time as well. Will need to continue IV antibiotics and monitor for worsening in abdominal pain or fevers - Repeat CT scan shows increased size of the abscess - WBC elevated but remains afebrile - ID on board and appreciate recommendations. Continue on Vanc and Meropenem and added antifungal coverage 2. Abdominal pain- stable - Secondary to above - pain control 3. Anxiety - Ativan PRN 4. Disposition - Will continue IV antibiotics and monitor for improvement in pain and WBC count. Result Diagram: 02/07/19 0516 02/06/19 0453 Results 24hrs Laboratory Tests Test 02/07/19 05:16 White Blood Count 19.1 #H Red Blood Count 4.17 L Hemoglobin 13.0 L Hematocrit 37.6 L Mean Corpuscular Volume 90.2 Mean Corpuscular Hemoglobin 31.2 Mean Corpuscular Hemoglobin Concent 34.6 Red Cell Distribution Width 12.8 Platelet Count 311 # Mean Platelet Volume 11.2 H Immature Granulocytes % 0.400 Neutrophils % 86.3 H Lymphocytes % 6.3 L Monocytes % 5.7 Eosinophils % 1.0 Basophils % 0.3 Nucleated Red Blood Cells % 0.0 Immature Granulocytes # 0.080 H Neutrophils # 16.5 H Lymphocytes # 1.2 Monocytes # 1.1 H Eosinophils # 0.2 Basophils # 0.1 Nucleated Red Blood Cells # 0.0 Subjective 24 Hr Interval Summary Free Text/Dictation Patient denies any fevers,chest pain, or dizziness. Still with LLQ discomfort when eating but denies any nausea, vomiting, or diarrhea. Exam/Review of Systems Exam Vitals Vital Signs Date Temp Pulse Resp B/P (MAP) Pulse Ox O2 O2 Flow FiO2 Time Delivery Rate 02/07/19 97.7 78 18 134/75 98 07:48 (94) 02/04/19 Room Air 02:26 Intake and Output 02/06/19 02/06/19 02/07/19 1515:00 23:00 07:00 IntakeIntake Total 1000 ml 700 ml 1100 ml OutputOutput Total 4 ml BalanceBalance 1000 ml 700 ml 1096 ml Exam General: Patient is laying in bed and answers questions appropriately Neck: Supple Respiratory: Clear to auscultation bilaterally. no wheezing or rhonchi Cardiovascular: regular rate and rhythm, no obvious murmurs Gastrointestinal: soft, minimal tenderness LLQ, bowel sounds heard. no rebound or guarding Ext: Moves all extremities spontaneously. no edema Skin: No new skin lesions Results Results 24hrs Laboratory Tests Test 02/07/19 05:16 White Blood Count 19.1 #H Red Blood Count 4.17 L Hemoglobin 13.0 L Hematocrit 37.6 L Mean Corpuscular Volume 90.2 Mean Corpuscular Hemoglobin 31.2 Mean Corpuscular Hemoglobin Concent 34.6 Red Cell Distribution Width 12.8 Platelet Count 311 # Mean Platelet Volume 11.2 H Immature Granulocytes % 0.400 Neutrophils % 86.3 H Lymphocytes % 6.3 L Monocytes % 5.7 Eosinophils % 1.0 Basophils % 0.3 Nucleated Red Blood Cells % 0.0 Immature Granulocytes # 0.080 H Neutrophils # 16.5 H Lymphocytes # 1.2 Monocytes # 1.1 H Eosinophils # 0.2 Basophils # 0.1 Nucleated Red Blood Cells # 0.0 Medications Medication Current Medications IV Flush (NS 3 ml) 3 ml PER PROTOCOL IV ; Start 02/01/19 at 09:00 Ondansetron HCl (Zofran Inj) 4 mg Q6H PRN IV NAUSEA/VOMITING Last administered on 02/07/19at 09:10; Admin Dose 4 MG; Start 02/01/19 at 09:00 Famotidine (Pepcid Iv) 20 mg Q12H IV Last administered on 02/07/19at 08:53; Admin Dose 20 MG; Start 02/01/19 at 09:30 Vancomycin HCl (Vanco Iv Per Pharmacy) VANCOMYCIN PER PHARMACY PER PROTOCOL XX ; Start 02/02/19 at 10:30 Hydromorphone HCl (Dilaudid) 1 mg Q2 PRN IV SEVERE PAIN LEVEL 7-10 Last administered on 02/04/19at 16:42; Admin Dose 1 MG; Start 02/02/19 at 13:00 Lorazepam (Ativan) 0.5 mg Q6H PRN IV anxiety Last administered on 02/06/19at 02:32; Admin Dose 0.5 MG; Start 02/02/19 at 13:00 Meropenem/Sodium Chloride 50 ml @ 100 mls/hr Q8 IVPB Last administered on 02/07/19at 05:41; Admin Dose 100 MLS/HR; Start 02/03/19 at 15:00 Vancomycin HCl 1.5 gm/Sodium Chloride 250 ml @ 83.333 mls/ hr Q8H IVPB Last administered on 02/07/19 11:12; Admin Dose 83.333 MLS/HR; Start 02/04/19 at 03:00 Acetaminophen/ Hydrocodone Bitart ([place] (10/325)) 1 tab Q4H PRN PO SEVERE PAIN LEVEL 7-10 Last administered on 02/04/19at 20:52; Admin Dose 1 TAB; Start 02/04/19 at 11:30 Acetaminophen/ Hydrocodone Bitart ([place] (5/325)) 1 tab Q6H PRN PO MODERATE PAIN LEVEL 4-6; Start 02/04/19 at 11:30 Ketorolac Tromethamine (Toradol) 30 mg Q6H PRN IV PAIN LEVEL 1-3 Last administered on 02/07/19at 04:23; Admin Dose 30 MG; Start 02/06/19 at 12:30; Stop 02/09/19 at 12:29 Acetaminophen 100 ml @ 400 mls/hr Q6H PRN IVPB PAIN LEVEL 1-5 Last administered on 02/07/19at 08:58; Admin Dose 400 MLS/HR; Start 02/07/19 at 09:00; Stop 02/08/19 at 08:59 Fluconazole/ Sodium Chloride 50 ml @ 50 mls/hr Q24H IVPB ; Start 02/07/19 at 12:00 ARELY DYER MD February 07, 2019 11:19
--- NOTE | 2019-02-07 12:19 | CONS ---
Assessment/Plan Assessment/Plan Hospital Course (Demo Recall) All noted, wbc went up, no fevers, nad CT of the abdomen and pelvis this morning revealed increased in size fluid collection now 6.2 cm in largest diameter. Please see full report in the chart Antimicrobials: Crista Velazquez Physical examination: Well-nourished well-developed middle-aged man who is alert in no distress. Head atraumatic normocephalic. Neck is supple chest rise symmetrical. Breath sounds clear. Heart: S1-S2. Abdomen soft bowel sounds present. Extremities without cyanosis Assessment: 1. Systemic inflammatory response syndrome 2 to #2 2. Acute diverticulitis with phlegmon Plan: Clinically stable, surgical recommendations noted, will continue on IV abx for now, plan to repeat CT with poss IR drain Consultation Date/Type/Reason Admit Date/Time February 01, 2019 at 08:04 Initial Consult Date 02/01/19 Type of Consult id Date/Time of Note DATE: 02/07/19 TIME: 12:17 Exam/Review of Systems Exam Vitals Vital Signs Date Temp Pulse Resp B/P (MAP) Pulse Ox O2 O2 Flow FiO2 Time Delivery Rate 02/07/19 97.7 78 18 134/75 98 07:48 (94) 02/04/19 Room Air 02:26 Intake and Output 02/06/19 02/06/19 02/07/19 1414:59 22:59 06:59 IntakeIntake Total 1000 ml 700 ml 1100 ml OutputOutput Total 4 ml BalanceBalance 1000 ml 700 ml 1096 ml Results Result Diagram: 02/07/19 0516 02/06/19 0453 Results 24hrs Laboratory Tests Test 02/07/19 05:16 White Blood Count 19.1 #H Red Blood Count 4.17 L Hemoglobin 13.0 L Hematocrit 37.6 L Mean Corpuscular Volume 90.2 Mean Corpuscular Hemoglobin 31.2 Mean Corpuscular Hemoglobin Concent 34.6 Red Cell Distribution Width 12.8 Platelet Count 311 # Mean Platelet Volume 11.2 H Immature Granulocytes % 0.400 Neutrophils % 86.3 H Lymphocytes % 6.3 L Monocytes % 5.7 Eosinophils % 1.0 Basophils % 0.3 Nucleated Red Blood Cells % 0.0 Immature Granulocytes # 0.080 H Neutrophils # 16.5 H Lymphocytes # 1.2 Monocytes # 1.1 H Eosinophils # 0.2 Basophils # 0.1 Nucleated Red Blood Cells # 0.0 Medications Medication Current Medications IV Flush (NS 3 ml) 3 ml PER PROTOCOL IV ; Start 02/01/19 at 09:00 Ondansetron HCl (Zofran Inj) 4 mg Q6H PRN IV NAUSEA/VOMITING Last administered on 02/07/19 09:10; Admin Dose 4 MG; Start 02/01/19 at 09:00 Famotidine (Pepcid Iv) 20 mg Q12H IV Last administered on 02/07/19 08:53; Admin Dose 20 MG; Start 02/01/19 at 09:30 Vancomycin HCl (Vanco Iv Per Pharmacy) VANCOMYCIN PER PHARMACY PER PROTOCOL XX ; Start 02/02/19 at 10:30 Hydromorphone HCl (Dilaudid) 1 mg Q2 PRN IV SEVERE PAIN LEVEL 7-10 Last administered on 02/04/19 16:42; Admin Dose 1 MG; Start 02/02/19 at 13:00 Lorazepam (Ativan) 0.5 mg Q6H PRN IV anxiety Last administered on 02/06/19at 02:32; Admin Dose 0.5 MG; Start 02/02/19 at 13:00 Meropenem/Sodium Chloride 50 ml @ 100 mls/hr Q8 IVPB Last administered on 02/07/19 05:41; Admin Dose 100 MLS/HR; Start 02/03/19 at 15:00 Vancomycin HCl 1.5 gm/Sodium Chloride 250 ml @ 83.333 mls/ hr Q8H IVPB Last administered on 02/07/19at 11:12; Admin Dose 83.333 MLS/HR; Start 02/04/19 at 03:00 Acetaminophen/ Hydrocodone Bitart ([place] (10/325)) 1 tab Q4H PRN PO SEVERE PAIN LEVEL 7-10 Last administered on 02/04/19 20:52; Admin Dose 1 TAB; Start 02/04/19 at 11:30 Acetaminophen/ Hydrocodone Bitart ([place] (5/325)) 1 tab Q6H PRN PO MODERATE PAIN LEVEL 4-6; Start 02/04/19 at 11:30 Ketorolac Tromethamine (Toradol) 30 mg Q6H PRN IV PAIN LEVEL 1-3 Last administered on 5/17/19at 04:23; Admin Dose 30 MG; Start 02/06/19 at 12:30; Stop 02/09/19 at 12:29 Acetaminophen 100 ml @ 400 mls/hr Q6H PRN IVPB PAIN LEVEL 1-5 Last administered on 02/07/19at 08:58; Admin Dose 400 MLS/HR; Start 02/07/19 at 09:00; Stop 02/08/19 at 08:59 Fluconazole/ Sodium Chloride 50 ml @ 50 mls/hr Q24H IVPB ; Start 02/07/19 at 12:00 KELSEY DAS NP February 07, 2019 12:19
[2019-02-07 14:32] VITALS: BP 117/69; PULSE 71; RESP 18
[2019-02-07] MEDS: FLUCONAZOLE 100 MG/50 ML (PMX) 50 ML IVPB SCH (14:40)
[2019-02-07] MEDS: D5W-0.45 NACL + KCL 20 MEQ 1,000 ML IV SCH (15:43)
--- NOTE | 2019-02-07 17:31 | PN ---
Date/Time of Note Date/Time of Note DATE: 02/07/19 TIME: 17:26 Assessment/Plan Lines/Catheters IV Catheter Type (from Nrs): Saline Lock Keyes in Place (from Nrs): No Assessment/Plan Chief Complaint/Hosp Course 1. Recurrent perforated diverticulitis with abscess. HD stable: Repeat ct: acute diverticulitis of the sigmoid colon with slight progression of the pe risigmoid inflammation and induration. Increase in size of perisigmoid fluid collection currently measures 6.2 cm in largest diameter. This was measured 3.8 cm in prior study. Spoke with IR yesterday and they think it is accessible but currently phlegmonous and therefore wont drain much. He recommended repeat CT and IR drain to follow -Continue iv abx -ivf -Repeat CT and possible IR drainage (need to discuss with IR MDs) 2. Leukocytosis: worsening -As above -Trend 3. Abdominal pain: Improved -As above Thank you Subjective 24 Hr Interval Summary Pain improved. No fevers, chills, sob, congested cough, cp, palpitations, greene, dizziness, n/v/d/dysuria. CT noted. Spoke with IR MD and he states collection is amenable to drainage when more liquified. Exam/Review of Systems Vital Signs Vitals Vital Signs Date Temp Pulse Resp B/P (MAP) Pulse Ox O2 O2 Flow FiO2 Time Delivery Rate 02/07/19 98.7 71 18 117/69 99 Room Air 14:32 (85) Intake and Output 02/06/19 02/06/19 02/07/19 1515:00 23:00 07:00 IntakeIntake Total 1000 ml 700 ml 1100 ml OutputOutput Total 4 ml BalanceBalance 1000 ml 700 ml 1096 ml Exam Free Text/Dictation Constitutional: alert, oriented Psych: nl mood/affect; No anxiety Head: normocephalic, atraumatic Eyes: nl conjunctiva, EOMI, nl lids, nl sclera ENMT: nl external ears & nose, nl lips & teeth, nl nasal mucosa & septum, mucosa pink and moist Neck: supple, non-tender Respiratory: normal air movement; No congested cough Cardiovascular: regular rate and rhythm, nl pulses Gastrointestinal: soft, NT, obese Genitourinary - Male: nl scrotum Musculoskeletal: nl extremities to inspection, nl gait and stance Extremities: normal pulses Neurological: nl mental status, nl speech, nl strength Results Result Diagram: 02/07/19 0516 02/06/19 0453 BARBARA JACOBS MD February 07, 2019 17:31
[2019-02-07] MEDS ORDERED: IOHEXOL 14.3 MG(I)/ML (ADULT) BTL PO ONE (19:00)
[2019-02-07 19:45] VITALS: BP 125/74; PULSE 87; RESP 20
[2019-02-07] MEDS: LORAZEPAM 2 MG INJ IV PRN (23:41)
[2019-02-08 02:03] VITALS: BP 114/73; PULSE 94; RESP 16
[2019-02-08] MEDS: ACETAMINOPHEN 1000MG/100ML IV 100 ML IVPB PRN (03:10)
[2019-02-08] MEDS: VANCOMYCIN HCL 1.5 GM in SOD CHLORIDE 0.9% 250 ML IVPB SCH ×3 (03:15→19:12)
[2019-02-08] MEDS: D5W-0.45 NACL + KCL 20 MEQ 1,000 ML IV SCH ×2 (03:15→14:15)
[2019-02-08] MEDS: KETOROLAC 30 MG INJ IV PRN ×3 (04:44→22:35)
[2019-02-08] MEDS: MEROPENEM 1 GM/50ML(PMX) 50 ML IVPB SCH ×3 (06:39→22:35)
[2019-02-08 07:35] VITALS: BP 132/77; PULSE 77; RESP 17
--- NOTE | 2019-02-08 09:14 | PN ---
Date/Time of Note Date/Time of Note DATE: 02/08/19 TIME: 09:14 Assessment/Plan VTE Prophylaxis Risk score (from Ns)>0 risk: 1 SCD applied (from Ns): No SCD contraindicated: low risk/ambulating Pharmacological prophylaxis: NA/contraindicated Pharm contraindication: low risk/ambulating Lines/Catheters [facility]from [facility] Saline Lock Urinary Cath still in place: No Assessment/Plan Assessment/Plan 1. Acute diverticulitis with phlegmon - Repeat CT scan ordered this am for reevaluation with results pending - General Surgery spoke with IR and unable to drain since only phlegmon present and no fluid to drain. Not surgical candidate at this time as well. Will need to continue IV antibiotics and awaiting fluid development to have drained - WBC elevated but remains afebrile - ID on board and appreciate recommendations. Continue on Vanc and Meropenem and Fluconazole 2. Abdominal pain- stable - Secondary to above - pain control 3. Anxiety - Ativan PRN 4. Disposition - REpeat CT scan A/P performed this am and awaiting results. Further plan of care based on results of imaging studies. Continue current IV antibiotics Result Diagram: 02/08/19 0442 02/06/19 0453 Results 24hrs Laboratory Tests Test 02/07/19 17:39 02/08/19 04:42 Vancomycin Level Trough 12.7 White Blood Count 15.8 H Red Blood Count 4.12 L Hemoglobin 12.7 L Hematocrit 37.7 L Mean Corpuscular Volume 91.5 Mean Corpuscular Hemoglobin 30.8 Mean Corpuscular Hemoglobin Concent 33.7 Red Cell Distribution Width 13.0 Platelet Count 376 # Mean Platelet Volume 11.4 H Immature Granulocytes % 0.900 H Neutrophils % 84.1 H Lymphocytes % 7.3 L Monocytes % 6.5 Eosinophils % 0.9 Basophils % 0.3 Nucleated Red Blood Cells % 0.0 Immature Granulocytes # 0.140 H Neutrophils # 13.3 H Lymphocytes # 1.2 Monocytes # 1.0 H Eosinophils # 0.2 Basophils # 0.0 Nucleated Red Blood Cells # 0.0 Subjective 24 Hr Interval Summary Free Text/Dictation Patient states his stool is more formed now and still tolerating food but limiting intake due to abdominal discomfort. Still with depressed mood given current medical situation. No acute overnight events. Exam/Review of Systems Exam Vitals Vital Signs Date Temp Pulse Resp B/P (MAP) Pulse Ox O2 O2 Flow FiO2 Time Delivery Rate 02/08/19 98.4 77 17 132/77 96 Room Air 07:35 (95) Intake and Output 02/07/19 02/07/19 02/08/19 1515:00 23:00 07:00 IntakeIntake Total 350 ml 200 ml 400 ml BalanceBalance 350 ml 200 ml 400 ml Exam General: Patient is laying in bed and answers questions appropriately Neck: Supple Respiratory: Clear to auscultation bilaterally. no wheezing or rhonchi Cardiovascular: regular rate and rhythm, no obvious murmurs Gastrointestinal: soft, minimal tenderness LLQ, bowel sounds heard. no rebound or guarding Ext: Moves all extremities spontaneously. no edema Skin: No new skin lesions Results Results 24hrs Laboratory Tests Test 02/07/19 17:39 02/08/19 04:42 Vancomycin Level Trough 12.7 White Blood Count 15.8 H Red Blood Count 4.12 L Hemoglobin 12.7 L Hematocrit 37.7 L Mean Corpuscular Volume 91.5 Mean Corpuscular Hemoglobin 30.8 Mean Corpuscular Hemoglobin Concent 33.7 Red Cell Distribution Width 13.0 Platelet Count 376 # Mean Platelet Volume 11.4 H Immature Granulocytes % 0.900 H Neutrophils % 84.1 H Lymphocytes % 7.3 L Monocytes % 6.5 Eosinophils % 0.9 Basophils % 0.3 Nucleated Red Blood Cells % 0.0 Immature Granulocytes # 0.140 H Neutrophils # 13.3 H Lymphocytes # 1.2 Monocytes # 1.0 H Eosinophils # 0.2 Basophils # 0.0 Nucleated Red Blood Cells # 0.0 Medications Medication Current Medications IV Flush (NS 3 ml) 3 ml PER PROTOCOL IV ; Start 02/01/19 at 09:00 Ondansetron HCl (Zofran Inj) 4 mg Q6H PRN IV NAUSEA/VOMITING Last administered on 02/07/19at 09:10; Admin Dose 4 MG; Start 02/01/19 at 09:00 Famotidine (Pepcid Iv) 20 mg Q12H IV Last administered on 02/07/19at 20:59; Admin Dose 20 MG; Start 02/01/19 at 09:30 Vancomycin HCl (Vanco Iv Per Pharmacy) VANCOMYCIN PER PHARMACY PER PROTOCOL XX ; Start 02/02/19 at 10:30 Hydromorphone HCl (Dilaudid) 1 mg Q2 PRN IV SEVERE PAIN LEVEL 7-10 Last administered on 02/04/19 16:42; Admin Dose 1 MG; Start 02/02/19 at 13:00 Lorazepam (Ativan) 0.5 mg Q6H PRN IV anxiety Last administered on 02/07/19 23:41; Admin Dose 0.5 MG; Start 02/02/19 at 13:00 Meropenem/Sodium Chloride 50 ml @ 100 mls/hr Q8 IVPB Last administered on 02/08/19 06:39; Admin Dose 100 MLS/HR; Start 02/03/19 at 15:00 Vancomycin HCl 1.5 gm/Sodium Chloride 250 ml @ 83.333 mls/ hr Q8H IVPB Last administered on 02/08/19 03:15; Admin Dose 83.333 MLS/HR; Start 02/04/19 at 03:00 Acetaminophen/ Hydrocodone Bitart ([place] (10/325)) 1 tab Q4H PRN PO SEVERE PAIN LEVEL 7-10 Last administered on 02/04/19 20:52; Admin Dose 1 TAB; Start 02/04/19 at 11:30 Acetaminophen/ Hydrocodone Bitart ([place] (5/325)) 1 tab Q6H PRN PO MODERATE PAIN LEVEL 4-6; Start 02/04/19 at 11:30 Ketorolac Tromethamine (Toradol) 30 mg Q6H PRN IV PAIN LEVEL 1-3 Last administered on 02/08/19 04:44; Admin Dose 30 MG; Start 02/06/19 at 12:30; Stop 02/09/19 at 12:29 Fluconazole/ Sodium Chloride 50 ml @ 50 mls/hr Q24H IVPB Last administered on 02/07/19 14:40; Admin Dose 50 MLS/HR; Start 02/07/19 at 12:00 Potassium Chloride/Dextrose/ Sod Cl 1,000 ml @ 75 mls/hr [id number] IV Last administered on 02/07/19 15:43; Admin Dose 75 MLS/HR; Start 02/07/19 at 14:30; Stop 02/08/19 at 14:29 ARELY DYER MD February 08, 2019 09:14
[2019-02-08] MEDS: FAMOTIDINE 20 MG INJ IV SCH ×2 (10:36→21:21)
[2019-02-08] MEDS: HYDROmorphONE 1 MG/ML SYG IV PRN (12:37)
[2019-02-08] MEDS ORDERED: IOHEXOL 300MG/ML 150 ML BTL ONE (13:33)
[2019-02-08] MEDS ORDERED: SOD CHLORIDE 0.9% 100 ML ONE (13:33)
[2019-02-08] MEDS: FLUCONAZOLE 100 MG/50 ML (PMX) 50 ML IVPB SCH (14:15)
[2019-02-08 14:30] VITALS: BP 146/81; PULSE 79; RESP 18
--- NOTE | 2019-02-08 15:10 | CONS ---
Assessment/Plan Assessment/Plan Hospital Course (Demo Recall) No acute changes, + low grade temps Repeat CT of the abdomen and pelvis revealed increased in size fluid collection now 6.2 cm in largest diameter. Please see full report in the chart Antimicrobials: RinkuAllison helmschelsey Castroluckristen Physical examination: Well-nourished well-developed middle-aged man who is alert in no distress. Head atraumatic normocephalic. Neck is supple chest rise symmetrical. Breath sounds clear. Heart: S1-S2. Abdomen soft bowel sounds present. Extremities without cyanosis Assessment: 1. Systemic inflammatory response syndrome 2 to #2 2. Acute diverticulitis with phlegmon/abscess Plan: Clinically stable, continue on IV abx, management per surgery Consultation Date/Type/Reason Admit Date/Time February 01, 2019 at 08:04 Initial Consult Date 02/01/19 Type of Consult id Date/Time of Note DATE: 02/08/19 TIME: 15:08 Exam/Review of Systems Exam Vitals Vital Signs Date Temp Pulse Resp B/P (MAP) Pulse Ox O2 O2 Flow FiO2 Time Delivery Rate 02/08/19 98.7 79 18 146/81 100 Room Air 14:30 (102) Intake and Output 02/07/19 02/07/19 02/08/19 1515:00 23:00 07:00 IntakeIntake Total 350 ml 200 ml 650 ml BalanceBalance 350 ml 200 ml 650 ml Results Result Diagram: 02/08/19 0442 02/06/19 0453 Results 24hrs Laboratory Tests Test 02/07/19 17:39 02/08/19 04:42 Vancomycin Level Trough 12.7 White Blood Count 15.8 H Red Blood Count 4.12 L Hemoglobin 12.7 L Hematocrit 37.7 L Mean Corpuscular Volume 91.5 Mean Corpuscular Hemoglobin 30.8 Mean Corpuscular Hemoglobin Concent 33.7 Red Cell Distribution Width 13.0 Platelet Count 376 # Mean Platelet Volume 11.4 H Immature Granulocytes % 0.900 H Neutrophils % 84.1 H Lymphocytes % 7.3 L Monocytes % 6.5 Eosinophils % 0.9 Basophils % 0.3 Nucleated Red Blood Cells % 0.0 Immature Granulocytes # 0.140 H Neutrophils # 13.3 H Lymphocytes # 1.2 Monocytes # 1.0 H Eosinophils # 0.2 Basophils # 0.0 Nucleated Red Blood Cells # 0.0 Medications Medication Current Medications IV Flush (NS 3 ml) 3 ml PER PROTOCOL IV ; Start 02/01/19 at 09:00 Ondansetron HCl (Zofran Inj) 4 mg Q6H PRN IV NAUSEA/VOMITING Last administered on 02/07/19 09:10; Admin Dose 4 MG; Start 02/01/19 at 09:00 Famotidine (Pepcid Iv) 20 mg Q12H IV Last administered on 02/08/19 10:36; Admin Dose 20 MG; Start 02/01/19 at 09:30 Vancomycin HCl (Vanco Iv Per Pharmacy) VANCOMYCIN PER PHARMACY PER PROTOCOL XX ; Start 02/02/19 at 10:30 Hydromorphone HCl (Dilaudid) 1 mg Q2 PRN IV SEVERE PAIN LEVEL 7-10 Last administered on 02/08/19 12:37; Admin Dose 1 MG; Start 02/02/19 at 13:00 Lorazepam (Ativan) 0.5 mg Q6H PRN IV anxiety Last administered on 02/07/19 23:41; Admin Dose 0.5 MG; Start 02/02/19 at 13:00 Meropenem/Sodium Chloride 50 ml @ 100 mls/hr Q8 IVPB Last administered on 02/08/19 06:39; Admin Dose 100 MLS/HR; Start 02/03/19 at 15:00 Vancomycin HCl 1.5 gm/Sodium Chloride 250 ml @ 83.333 mls/ hr Q8H IVPB Last administered on 02/08/19 10:29; Admin Dose 83.333 MLS/HR; Start 02/04/19 at 03:00 Acetaminophen/ Hydrocodone Bitart ([place] (10/325)) 1 tab Q4H PRN PO SEVERE PAIN LEVEL 7-10 Last administered on 02/04/19 20:52; Admin Dose 1 TAB; Start 02/04/19 at 11:30 Acetaminophen/ Hydrocodone Bitart ([place] (5/325)) 1 tab Q6H PRN PO MODERATE PAIN LEVEL 4-6; Start 02/04/19 at 11:30 Ketorolac Tromethamine (Toradol) 30 mg Q6H PRN IV PAIN LEVEL 1-3 Last administered on 02/08/19 10:29; Admin Dose 30 MG; Start 02/06/19 at 12:30; Stop 02/09/19 at 12:29 Fluconazole/ Sodium Chloride 50 ml @ 50 mls/hr Q24H IVPB Last administered on 02/08/19at 14:15; Admin Dose 50 MLS/HR; Start 02/07/19 at 12:00 Acetaminophen (Tylenol Tab) 1,000 mg Q6H PRN PO MILD PAIN(1-3)OR ELEVATED TEMP; Start 02/08/19 at 14:00 KELSEY DAS NP February 08, 2019 15:10
--- NOTE | 2019-02-08 16:16 | PN ---
Date/Time of Note Date/Time of Note DATE: 02/08/19 TIME: 16:13 Assessment/Plan Lines/Catheters IV Catheter Type (from [facility]): Peripheral IV Keyes in Place (from [facility]): No Assessment/Plan Chief Complaint/Hosp Course 1. Recurrent perforated diverticulitis with abscess. HD stable: Repeat ct: acute diverticulitis of the sigmoid colon with slight progression of the perisigmoid inflammation and induration. Increase in size of perisigmoid fluid collection currently measures 6.2 cm in largest diameter. This was measured 3.8 cm in prior study. Dr. Beauchamp spoke wi th IR and they think it is accessible but currently phlegmonous and therefore wont drain much. He recommended repeat CT and IR drain to follow> CT pending -Continue iv abx -ivf -Repeat CT pending and possible IR drainage (need to discuss with IR MDs) 2. Leukocytosis: Improved -Antibiotics/antifungal per ID -As above -Trend 3. Abdominal pain: Improved -As above Thank you. Patient seen and examined in collaboration with Dr. Chung Beauchamp. Subjective 24 Hr Interval Summary Feels much better. Minimal temp. Abdominal pain much improved. + Bowel function. WBC improved. No chills, sob, congested cough, cp, palpitations, greene, dizziness, nausea, vomiting, diarrhea, dysuria. Exam/Review of Systems Vital Signs Vitals Vital Signs Date Temp Pulse Resp B/P (MAP) Pulse Ox O2 O2 Flow FiO2 Time Delivery Rate 02/08/19 98.7 79 18 146/81 100 Room Air 14:30 (102) Intake and Output 02/07/19 02/07/19 02/08/19 1515:00 23:00 07:00 IntakeIntake Total 350 ml 200 ml 650 ml BalanceBalance 350 ml 200 ml 650 ml Exam Free Text/Dictation Constitutional: alert, oriented Psych: nl mood/affect; No anxiety Head: normocephalic, atraumatic Eyes: nl conjunctiva, EOMI, nl lids, nl sclera ENMT: nl external ears & nose, nl lips & teeth, nl nasal mucosa & septum, mucosa pink and moist Neck: supple, non-tender Respiratory: normal air movement; No congested cough Cardiovascular: regular rate and rhythm, nl pulses Gastrointestinal: soft, NT, obese Genitourinary - Male: nl scrotum Musculoskeletal: nl extremities to inspection, nl gait and stance Extremities: normal pulses Neurological: nl mental status, nl speech, nl strength Results Result Diagram: 02/08/19 0442 02/06/19 0453 FOREST LOWE NP February 08, 2019 16:16
[2019-02-08 20:05] VITALS: BP 117/66; PULSE 76; RESP 18
[2019-02-08] MEDS: ACETAMINOPHEN 500 MG TAB PO PRN (20:34)
[2019-02-09] MEDS: LORAZEPAM 2 MG INJ IV PRN ×2 (00:32→23:05)
[2019-02-09 02:00] VITALS: BP_SYST 129; BP_SYST 80; BP_DIAS 80; PULSE 71; RESP 18
[2019-02-09] MEDS: VANCOMYCIN HCL 1.5 GM in SOD CHLORIDE 0.9% 250 ML IVPB SCH ×3 (02:25→19:05)
[2019-02-09] MEDS: MEROPENEM 1 GM/50ML(PMX) 50 ML IVPB SCH ×3 (05:56→22:12)
[2019-02-09] MEDS: KETOROLAC 30 MG INJ IV PRN (05:56)
[2019-02-09 08:19] VITALS: BP 102/61; PULSE 70; RESP 18
--- NOTE | 2019-02-09 09:18 | PN ---
Date/Time of Note Date/Time of Note DATE: 02/09/19 TIME: 09:18 Assessment/Plan VTE Prophylaxis Risk score (from Ns)>0 risk: 1 SCD applied (from Ns): No SCD contraindicated: low risk/ambulating Pharmacological prophylaxis: NA/contraindicated Pharm contraindication: low risk/ambulating Lines/Catheters IV [facility]from [facility] Peripheral IV Urinary Cath still in place: No Assessment/Plan Assessment/Plan 1. Acute diverticulitis with phlegmon- stable - repeat CT scan yesterday shows no change in diverticulitis with phlegmon - WBC normalized and remains afebrile - General Surgery spoke with IR and unable to drain since only phlegmon present and no fluid to drain. Not surgical candidate at this time as well. Will need to continue IV antibiotics and awaiting fluid development to have drained - ID on board and appreciate recommendations. Continue on Vanc and Meropenem and Fluconazole 2. Abdominal pain- stable - Secondary to above - pain control 3. Anxiety - Ativan PRN 4. Disposition - Will advance to regular diet. Will touch base with Gen Surg regarding best discharging plan since unknown how long phlegmon will take to manifest into fluid for drainage. Continue current antibiotics at this time Result Diagram: 02/09/19 0646 02/09/19 0646 Results 24hrs Laboratory Tests Test 02/09/19 06:46 White Blood Count 10.3 # Red Blood Count 4.04 L Hemoglobin 12.5 L Hematocrit 37.0 L Mean Corpuscular Volume 91.6 Mean Corpuscular Hemoglobin 30.9 Mean Corpuscular Hemoglobin Concent 33.8 Red Cell Distribution Width 13.0 Platelet Count 365 Mean Platelet Volume 11.0 H Immature Granulocytes % 0.400 Neutrophils % 79.3 H Lymphocytes % 11.5 L Monocytes % 7.3 Eosinophils % 1.1 Basophils % 0.4 Nucleated Red Blood Cells % 0.0 Immature Granulocytes # 0.040 H Neutrophils # 8.1 H Lymphocytes # 1.2 Monocytes # 0.8 Eosinophils # 0.1 Basophils # 0.0 Nucleated Red Blood Cells # 0.0 Sodium Level 137 Potassium Level 3.7 Chloride Level 100 Carbon Dioxide Level 29 Anion Gap 8 Blood Urea Nitrogen 3 L Creatinine 0.66 Glucose Level 157 Calcium Level 8.4 Phosphorus Level 2.9 Magnesium Level 1.9 Albumin 3.1 L Subjective 24 Hr Interval Summary Free Text/Dictation Patient states hes tolerating PO intake and requesting diet to be advanced. No acute overnight events. Exam/Review of Systems Exam Vitals Vital Signs Date Temp Pulse Resp B/P (MAP) Pulse Ox O2 O2 Flow FiO2 Time Delivery Rate 02/09/19 98.6 70 18 102/61 99 08:19 (75) 02/08/19 Room Air 14:30 Intake and Output 02/08/19 02/08/19 02/09/19 1515:00 23:00 07:00 IntakeIntake Total 1300 ml 1085 ml 1070 ml BalanceBalance 1300 ml 1085 ml 1070 ml Exam General: Patient is laying in bed and answers questions appropriately Neck: Supple Respiratory: Clear to auscultation bilaterally. no wheezing or rhonchi Cardiovascular: regular rate and rhythm, no obvious murmurs Gastrointestinal: soft, nontender, nondistended, bowel sounds heard. no rebound or guarding Ext: Moves all extremities spontaneously. no edema Skin: No new skin lesions Results Results 24hrs Laboratory Tests Test 02/09/19 06:46 White Blood Count 10.3 # Red Blood Count 4.04 L Hemoglobin 12.5 L Hematocrit 37.0 L Mean Corpuscular Volume 91.6 Mean Corpuscular Hemoglobin 30.9 Mean Corpuscular Hemoglobin Concent 33.8 Red Cell Distribution Width 13.0 Platelet Count 365 Mean Platelet Volume 11.0 H Immature Granulocytes % 0.400 Neutrophils % 79.3 H Lymphocytes % 11.5 L Monocytes % 7.3 Eosinophils % 1.1 Basophils % 0.4 Nucleated Red Blood Cells % 0.0 Immature Granulocytes # 0.040 H Neutrophils # 8.1 H Lymphocytes # 1.2 Monocytes # 0.8 Eosinophils # 0.1 Basophils # 0.0 Nucleated Red Blood Cells # 0.0 Sodium Level 137 Potassium Level 3.7 Chloride Level 100 Carbon Dioxide Level 29 Anion Gap 8 Blood Urea Nitrogen 3 L Creatinine 0.66 Glucose Level 157 Calcium Level 8.4 Phosphorus Level 2.9 Magnesium Level 1.9 Albumin 3.1 L Medications Medication Current Medications IV Flush (NS 3 ml) 3 ml PER PROTOCOL IV ; Start 02/01/19 at 09:00 Ondansetron HCl (Zofran Inj) 4 mg Q6H PRN IV NAUSEA/VOMITING Last administered on 02/07/19at 09:10; Admin Dose 4 MG; Start 02/01/19 at 09:00 Famotidine (Pepcid Iv) 20 mg Q12H IV Last administered on 02/08/19at 21:21; Admin Dose 20 MG; Start 02/01/19 at 09:30 Vancomycin HCl (Vanco Iv Per Pharmacy) VANCOMYCIN PER PHARMACY PER PROTOCOL XX ; Start 02/02/19 at 10:30 Hydromorphone HCl (Dilaudid) 1 mg Q2 PRN IV SEVERE PAIN LEVEL 7-10 Last administered on 02/08/19at 12:37; Admin Dose 1 MG; Start 02/02/19 at 13:00 Lorazepam (Ativan) 0.5 mg Q6H PRN IV anxiety Last administered on 02/09/19 00:32; Admin Dose 0.5 MG; Start 02/02/19 at 13:00 Meropenem/Sodium Chloride 50 ml @ 100 mls/hr Q8 IVPB Last administered on 02/09/19 05:56; Admin Dose 100 MLS/HR; Start 02/03/19 at 15:00 Vancomycin HCl 1.5 gm/Sodium Chloride 250 ml @ 83.333 mls/ hr Q8H IVPB Last ad ministered on 02/09/19at 02:25; Admin Dose 83.333 MLS/HR; Start 02/04/19 at 03:00 Acetaminophen/ Hydrocodone Bitart ([place] (10/325)) 1 tab Q4H PRN PO SEVERE PAIN LEVEL 7-10 Last administered on 02/04/19at 20:52; Admin Dose 1 TAB; Start 02/04/19 at 11:30 Acetaminophen/ Hydrocodone Bitart ([place] (5/325)) 1 tab Q6H PRN PO MODERATE PAIN LEVEL 4-6; Start 02/04/19 at 11:30 Ketorolac Tromethamine (Toradol) 30 mg Q6H PRN IV PAIN LEVEL 1-3 Last administered on 02/09/19 05:56; Admin Dose 30 MG; Start 02/06/19 at 12:30; Stop 02/09/19 at 12:29 Fluconazole/ Sodium Chloride 50 ml @ 50 mls/hr Q24H IVPB Last administered on 02/08/19at 14:15; Admin Dose 50 MLS/HR; Start 02/07/19 at 12:00 Acetaminophen (Tylenol Tab) 1,000 mg Q6H PRN PO MILD PAIN(1-3)OR ELEVATED TEMP Last administered on 02/08/19at 20:34; Admin Dose 1,000 MG; Start 02/08/19 at 14:00 ARELY DYER MD February 09, 2019 09:18
--- NOTE | 2019-02-09 13:10 | CONS ---
Consultation Date/Type/Reason Admit Date/Time February 01, 2019 at 08:04 Initial Consult Date SUBJECTIVE: PT is awake, alert, afebrile. No acute events over night. VS: stable T: 98.6 LABS: reviewed. WBC- 10.3 CT of abd/pelvic 02/08/19: IMPRESSION: Redemonstrated acute sigmoid diverticulitis. Stable overall size of the perisigmoid phlegmon/abscess, with interval decrease in gas. No evidence of extraluminal contrast leak. Antimicrobials: Vanco, Merrem and Diflucan Physical examination: GEN: Well-nourished well-developed middle-aged man, who is alert in no distress. HENT: Head atraumatic normocephalic. Neck is supple PULM: chest rise symmetrical. Breath sounds clear. Heart: S1-S2. Abdomen soft bowel sounds present. Extremities without cyanosis Assessment: 1. Systemic inflammatory response syndrome 2 to #2 2. Acute diverticulitis with phlegmon/abscess Plan: Pt is stable. Continue current IV abx,. Pain management. Surgery following. Repeat CT of abd/pelvic noted. Re- evaluation with radiology tomorrow. Date/Time of Note DATE: 02/09/19 TIME: 13:03 Exam/Review of Systems Exam Vitals Vital Signs Date Temp Pulse Resp B/P (MAP) Pulse Ox O2 O2 Flow FiO2 Time Delivery Rate 02/09/19 98.6 70 18 102/61 99 08:19 (75) 02/08/19 Room Air 14:30 Intake and Output 02/08/19 02/08/19 02/09/19 1515:00 23:00 07:00 IntakeIntake Total 1300 ml 1085 ml 1070 ml BalanceBalance 1300 ml 1085 ml 1070 ml Results Result Diagram: 02/09/19 0646 02/09/19 0646 Results 24hrs Laboratory Tests Test 02/09/19 06:46 White Blood Count 10.3 # Red Blood Count 4.04 L Hemoglobin 12.5 L Hematocrit 37.0 L Mean Corpuscular Volume 91.6 Mean Corpuscular Hemoglobin 30.9 Mean Corpuscular Hemoglobin Concent 33.8 Red Cell Distribution Width 13.0 Platelet Count 365 Mean Platelet Volume 11.0 H Immature Granulocytes % 0.400 Neutrophils % 79.3 H Lymphocytes % 11.5 L Monocytes % 7.3 Eosinophils % 1.1 Basophils % 0.4 Nucleated Red Blood Cells % 0.0 Immature Granulocytes # 0.040 H Neutrophils # 8.1 H Lymphocytes # 1.2 Monocytes # 0.8 Eosinophils # 0.1 Basophils # 0.0 Nucleated Red Blood Cells # 0.0 Sodium Level 137 Potassium Level 3.7 Chloride Level 100 Carbon Dioxide Level 29 Anion Gap 8 Blood Urea Nitrogen 3 L Creatinine 0.66 Glucose Level 157 Calcium Level 8.4 Phosphorus Level 2.9 Magnesium Level 1.9 Albumin 3.1 L Medications Medication Current Medications IV Flush (NS 3 ml) 3 ml PER PROTOCOL IV ; Start 02/01/19 at 09:00 Ondansetron HCl (Zofran Inj) 4 mg Q6H PRN IV NAUSEA/VOMITING Last administered on 02/07/19 09:10; Admin Dose 4 MG; Start 02/01/19 at 09:00 Vancomycin HCl (Vanco Iv Per Pharmacy) VANCOMYCIN PER PHARMACY PER PROTOCOL XX ; Start 02/02/19 at 10:30 Hydromorphone HCl (Dilaudid) 1 mg Q2 PRN IV SEVERE PAIN LEVEL 7-10 Last administered on 02/08/19 12:37; Admin Dose 1 MG; Start 02/02/19 at 13:00 Lorazepam (Ativan) 0.5 mg Q6H PRN IV anxiety Last administered on 02/09/19at 00:32; Admin Dose 0.5 MG; Start 02/02/19 at 13:00 Meropenem/Sodium Chloride 50 ml @ 100 mls/hr Q8 IVPB Last administered on 02/09/19 05:56; Admin Dose 100 MLS/HR; Start 02/03/19 at 15:00 Vancomycin HCl 1.5 gm/Sodium Chloride 250 ml @ 83.333 mls/ hr Q8H IVPB Last administered on 02/09/19at 10:56; Admin Dose 83.333 MLS/HR; Start 02/04/19 at 03:00 Acetaminophen/ Hydrocodone Bitart ([place] (10/325)) 1 tab Q4H PRN PO SEVERE PAIN LEVEL 7-10 Last administered on 02/04/19at 20:52; Admin Dose 1 TAB; Start 02/04/19 at 11:30 Acetaminophen/ Hydrocodone Bitart ([place] (5325)) 1 tab Q6H PRN PO MODERATE PAIN LEVEL 4-6; Start 02/04/19 at 11:30 Fluconazole/ Sodium Chloride 50 ml @ 50 mls/hr Q24H IVPB Last administered on 02/08/19at 14:15; Admin Dose 50 MLS/HR; Start 02/07/19 at 12:00 Acetaminophen (Tylenol Tab) 1,000 mg Q6H PRN PO MILD PAIN(1-3)OR ELEVATED TEMP Last administered on 02/08/19at 20:34; Admin Dose 1,000 MG; Start 02/08/19 at 14:00 Famotidine (Pepcid) 20 mg BID PO ; Start 02/09/19 at 21:00 TAJ VILLELA February 09, 2019 13:10
--- NOTE | 2019-02-09 13:28 | PN ---
Date/Time of Note Date/Time of Note DATE: 02/09/19 TIME: 13:19 Assessment/Plan Lines/Catheters IV Catheter Type (from [facility]): Peripheral IV Keyes in Place (from [facility]): No Assessment/Plan Chief Complaint/Hosp Course 1. Recurrent perforated diverticulitis with abscess. HD stable: Repeat ct: acute diverticulitis of the sigmoid colon with slight progression of the perisigmoid inflammation and induration. Increase in size of perisigmoid fluid collection currently measures 6.2 cm in largest diameter. This was measured 3.8 cm in prior study. Dr. Beauchamp spoke wi th IR and they think it is accessible but currently phlegmonous and therefore wont drain much. He recommended repeat CT and IR drain to follow> reviewed CT with radiologist, abscess reportedly smaller and no good window to drain abscess -Continue iv abx for now 2. Leukocytosis: resolved -Antibiotics/antifungal per ID -As above -Trend 3. Abdominal pain: Improved -As above Thank you. Patient seen and examined in collaboration with Dr. Chung Beauchamp. Subjective 24 Hr Interval Summary Feels much improved. No fevers, chills, sob, congested cough, cp, palpitations, greene, dizziness, n/v/d/dysuria. Tolerating diet. Exam/Review of Systems Vital Signs Vitals Vital Signs Date Temp Pulse Resp B/P (MAP) Pulse Ox O2 O2 Flow FiO2 Time Delivery Rate 02/09/19 98.6 70 18 102/61 99 08:19 (75) 02/08/19 Room Air 14:30 Intake and Output 02/08/19 02/08/19 02/09/19 1515:00 23:00 07:00 IntakeIntake Total 1300 ml 1085 ml 1070 ml BalanceBalance 1300 ml 1085 ml 1070 ml Exam Free Text/Dictation Constitutional: alert, oriented Psych: nl mood/affect; No anxiety Head: normocephalic, atraumatic Eyes: nl conjunctiva, EOMI, nl lids, nl sclera ENMT: nl external ears & nose, nl lips & teeth, nl nasal mucosa & septum, mucosa pink and moist Neck: supple, non-tender Respiratory: normal air movement; No congested cough Cardiovascular: regular rate and rhythm, nl pulses Gastrointestinal: soft, NT, obese Genitourinary - Male: nl scrotum Musculoskeletal: nl extremities to inspection, nl gait and stance Extremities: normal pulses Neurological: nl mental status, nl speech, nl strength Results Result Diagram: 02/09/19 0646 02/09/19 0646 FOREST LOWE NP February 09, 2019 13:28
[2019-02-09] MEDS: FLUCONAZOLE 100 MG/50 ML (PMX) 50 ML IVPB SCH (14:06)
[2019-02-09] MEDS: ACETAMINOPHEN 500 MG TAB PO PRN (14:06)
[2019-02-09 20:00] VITALS: BP 124/79; PULSE 80; RESP 18
[2019-02-09] MEDS: HYDROCODONE/APAP (10/325) TAB PO PRN (20:04)
[2019-02-09] MEDS: FAMOTIDINE 20 MG TAB PO SCH (20:04)
[2019-02-10 02:28] VITALS: BP 102/58; PULSE 67; RESP 18
[2019-02-10] MEDS: VANCOMYCIN HCL 1.5 GM in SOD CHLORIDE 0.9% 250 ML IVPB SCH ×3 (02:30→18:48)
[2019-02-10] MEDS: MEROPENEM 1 GM/50ML(PMX) 50 ML IVPB SCH ×3 (06:20→21:45)
[2019-02-10 07:45] VITALS: BP 127/76; PULSE 73; RESP 17
[2019-02-10] MEDS ORDERED: POTASSIUM CHLORIDE (SR) 20 MEQ TAB PO STA (08:57)
[2019-02-10] MEDS: FAMOTIDINE 20 MG TAB PO SCH ×2 (08:59→20:16)
--- NOTE | 2019-02-10 10:56 | PN ---
Date/Time of Note Date/Time of Note DATE: 02/10/19 TIME: 10:53 Assessment/Plan Lines/Catheters IV Catheter Type (from [facility]): Peripheral IV Keyes in Place (from [facility]): No Assessment/Plan Chief Complaint/Hosp Course 1. Recurrent perforated diverticulitis with abscess. HD stable: Repeat ct: acute diverticulitis of the sigmoid colon with slight progression of the perisigmoid inflammation and induration. Increase in size of perisigmoid fluid collection currently measures 6.2 cm in largest diameter. This was measured 3.8 cm in prior study. Dr. Jacobs spoke wi th IR and they think it is accessible but currently phlegmonous and therefore wont drain much. He recommended repeat CT and IR drain to follow> reviewed CT with radiologist, abscess reportedly smaller and no good window to drain abscess -prolonged abx tx per ID -recommend outpt f/u for elective lap partial colectomy 2. Leukocytosis: resolved -Antibiotics/antifungal per ID -As above -Trend 3. Abdominal pain: Improved -As above 4. BMI 38 -encourage nutrition and exercise optimization Thank you Subjective 24 Hr Interval Summary Feels much improved. No fevers, chills, sob, congested cough, cp, palpitations, greene, dizziness, n/v/d/dysuria. Tolerating diet. Bowel function Exam/Review of Systems Vital Signs Vitals Vital Signs Date Temp Pulse Resp B/P (MAP) Pulse Ox O2 O2 Flow FiO2 Time Delivery Rate 02/10/19 99.0 73 17 127/76 97 Room Air 07:45 (93) Intake and Output 02/09/19 02/09/19 02/10/19 1515:00 23:00 07:00 IntakeIntake Total 970 ml 1150 ml 300 ml BalanceBalance 970 ml 1150 ml 300 ml Exam Free Text/Dictation Constitutional: alert, oriented Psych: nl mood/affect; No anxiety Head: normocephalic, atraumatic Eyes: nl conjunctiva, EOMI, nl lids, nl sclera ENMT: nl external ears & nose, nl lips & teeth, nl nasal mucosa & septum, mucosa pink and moist Neck: supple, non-tender Respiratory: normal air movement; No congested cough Cardiovascular: regular rate and rhythm, nl pulses Gastrointestinal: soft, NT, obese Genitourinary - Male: nl scrotum Musculoskeletal: nl extremities to inspection, nl gait and stance Extremities: normal pulses Neurological: nl mental status, nl speech, nl strength Results Result Diagram: 02/10/19 0510 02/10/19 0510 BARBARA JACOBS MD February 10, 2019 10:56
--- NOTE | 2019-02-10 11:50 | PN ---
Date/Time of Note Date/Time of Note DATE: 02/10/19 TIME: 11:44 Assessment/Plan VTE Prophylaxis Risk score (from [facility])>0 risk: 1 SCD applied (from [facility]): No SCD contraindicated: low risk/ambulating, other Pharmacological prophylaxis: NA/contraindicated Pharm contraindication: low risk/ambulating Lines/Catheters IV Catheter Type (from [facility]): Peripheral IV Urinary Cath still in place: No Assessment/Plan Assessment/Plan 1. Acute diverticulitis with phlegmon- stable - repeat CT scan yesterday shows decreased size of abscess and not able to be drained - Gen surgery on board and appreciated recommendations. will need eventual partial lap dani - WBC normalized and remains afebrile - ID on board and appreciate recommendations. Per surgery, will need prolonged IV antibiotic therapy 2. Abdominal pain- stable - Secondary to above - pain control 3. Anxiety - Ativan PRN 4. Disposition - Continue antibiotics per ID recommendations. Recommend recheck CT scan in a few days and if continues to decrease in size, d/c with IV antibiotics and outpatient follow up Result Diagram: 02/10/19 0510 02/10/19 0510 Results 24hrs Laboratory Tests Test 02/10/19 05:10 White Blood Count 6.6 # Red Blood Count 4.28 L Hemoglobin 13.1 L Hematocrit 39.0 L Mean Corpuscular Volume 91.1 Mean Corpuscular Hemoglobin 30.6 Mean Corpuscular Hemoglobin Concent 33.6 Red Cell Distribution Width 12.8 Platelet Count 430 H Mean Platelet Volume 10.6 H Immature Granulocytes % 0.800 H Neutrophils % 63.1 Lymphocytes % 21.8 Monocytes % 10.0 Eosinophils % 3.8 Basophils % 0.5 Nucleated Red Blood Cells % 0.0 Immature Granulocytes # 0.050 H Neutrophils # 4.2 Lymphocytes # 1.4 Monocytes # 0.7 Eosinophils # 0.3 Basophils # 0.0 Nucleated Red Blood Cells # 0.0 Sodium Level 139 Potassium Level 3.6 Chloride Level 102 Carbon Dioxide Level 30 Anion Gap 7 Blood Urea Nitrogen < 2 L Creatinine 0.60 L Glucose Level 126 Calcium Level 8.7 Phosphorus Level 3.6 Magnesium Level 2.2 Albumin 3.2 L Subjective 24 Hr Interval Summary Free Text/Dictation Patient states his appetite has been improving and in less pain. No acute overnight events. Exam/Review of Systems Exam Vitals Vital Signs Date Temp Pulse Resp B/P (MAP) Pulse Ox O2 O2 Flow FiO2 Time Delivery Rate 02/10/19 99.0 73 17 127/76 97 Room Air 07:45 (93) Intake and Output 02/09/19 02/09/19 02/10/19 1515:00 23:00 07:00 IntakeIntake Total 970 ml 1150 ml 300 ml BalanceBalance 970 ml 1150 ml 300 ml Exam General: Patient is laying in bed and answers questions appropriately Neck: Supple Respiratory: Clear to auscultation bilaterally. no wheezing or rhonchi Cardiovascular: regular rate and rhythm, no obvious murmurs Gastrointestinal: soft, nontender, nondistended, bowel sounds heard. no rebound or guarding Ext: Moves all extremities spontaneously. no edema Skin: No new skin lesions Results Results 24hrs Laboratory Tests Test 02/10/19 05:10 White Blood Count 6.6 # Red Blood Count 4.28 L Hemoglobin 13.1 L Hematocrit 39.0 L Mean Corpuscular Volume 91.1 Mean Corpuscular Hemoglobin 30.6 Mean Corpuscular Hemoglobin Concent 33.6 Red Cell Distribution Width 12.8 Platelet Count 430 H Mean Platelet Volume 10.6 H Immature Granulocytes % 0.800 H Neutrophils % 63.1 Lymphocytes % 21.8 Monocytes % 10.0 Eosinophils % 3.8 Basophils % 0.5 Nucleated Red Blood Cells % 0.0 Immature Granulocytes # 0.050 H Neutrophils # 4.2 Lymphocytes # 1.4 Monocytes # 0.7 Eosinophils # 0.3 Basophils # 0.0 Nucleated Red Blood Cells # 0.0 Sodium Level 139 Potassium Level 3.6 Chloride Level 102 Carbon Dioxide Level 30 Anion Gap 7 Blood Urea Nitrogen < 2 L Creatinine 0.60 L Glucose Level 126 Calcium Level 8.7 Phosphorus Level 3.6 Magnesium Level 2.2 Albumin 3.2 L Medications Medication Current Medications IV Flush (NS 3 ml) 3 ml PER PROTOCOL IV ; Start 02/01/19 at 09:00 Ondansetron HCl (Zofran Inj) 4 mg Q6H PRN IV NAUSEA/VOMITING Last administered on 02/07/19at 09:10; Admin Dose 4 MG; Start 02/01/19 at 09:00 Vancomycin HCl (Vanco Iv Per Pharmacy) VANCOMYCIN PER PHARMACY PER PROTOCOL XX ; Start 02/02/19 at 10:30 Hydromorphone HCl (Dilaudid) 1 mg Q2 PRN IV SEVERE PAIN LEVEL 7-10 Last administered on 02/08/19 12:37; Admin Dose 1 MG; Start 02/02/19 at 13:00 Lorazepam (Ativan) 0.5 mg Q6H PRN IV anxiety Last administered on 02/09/19 23:05; Admin Dose 0.5 MG; Start 02/02/19 at 13:00 Meropenem/Sodium Chloride 50 ml @ 100 mls/hr Q8 IVPB Last administered on 02/10/19 06:20; Admin Dose 100 MLS/HR; Start 02/03/19 at 15:00 Vancomycin HCl 1.5 gm/Sodium Chloride 250 ml @ 83.333 mls/ hr Q8H IVPB Last administered on 02/10/19 02:30; Admin Dose 83.333 MLS/HR; Start 02/04/19 at 03:00 Acetaminophen/ Hydrocodone Bitart ([place] (10/325)) 1 tab Q4H PRN PO SEVERE PAIN LEVEL 7-10 Last administered on 02/09/19 20:04; Admin Dose 1 TAB; Start 02/04/19 at 11:30 Acetaminophen/ Hydrocodone Bitart ([place] (5/325)) 1 tab Q6H PRN PO MODERATE PAIN LEVEL 4-6; Start 02/04/19 at 11:30 Fluconazole/ Sodium Chloride 50 ml @ 50 mls/hr Q24H IVPB Last administered on 02/09/19 14:06; Admin Dose 50 MLS/HR; Start 02/07/19 at 12:00 Acetaminophen (Tylenol Tab) 1,000 mg Q6H PRN PO MILD PAIN(1-3)OR ELEVATED TEMP Last administered on 02/09/19 14:06; Admin Dose 1,000 MG; Start 02/08/19 at 14:00 Famotidine (Pepcid) 20 mg BID PO Last administered on 02/09/19 20:04; Admin Dose 20 MG; Start 02/09/19 at 21:00 ARELY DYER MD February 10, 2019 11:50
[2019-02-10] MEDS: FLUCONAZOLE 100 MG/50 ML (PMX) 50 ML IVPB SCH (13:08)
--- NOTE | 2019-02-10 13:37 | CONS ---
Assessment/Plan Assessment/Plan Hospital Course (Demo Recall) Patient is alert feels good looks comfortable no fevers overnight WBC today 6.6 no shift no bands Repeat CT of the abdomen and pelvis revealed increased in size fluid collection now 6.2 cm in largest diameter. Please see full report in the chart Antimicrobials: Crista Velazquez Physical examination: Well-nourished well-developed middle-aged man who is alert in no distress. Head atraumatic normocephalic. Neck is supple chest rise symmetrical. Breath sounds clear. Heart: S1-S2. Abdomen soft bowel sounds present. Extremities without cyanosis Assessment: 1. Systemic inflammatory response syndrome 2 to #2 2. Acute diverticulitis with phlegmon/abscess Plan: Clinically stable, WBC decreased, continue on IV abx, management per surgery Consultation Date/Type/Reason Admit Date/Time February 01, 2019 at 08:04 Initial Consult Date 02/01/19 Type of Consult id Date/Time of Note DATE: 02/10/19 TIME: 13:36 Exam/Review of Systems Exam Vitals Vital Signs Date Temp Pulse Resp B/P (MAP) Pulse Ox O2 O2 Flow FiO2 Time Delivery Rate 02/10/19 99.0 73 17 127/76 97 Room Air 07:45 (93) Intake and Output 02/09/19 02/09/19 02/10/19 1414:59 22:59 06:59 IntakeIntake Total 970 ml 1100 ml 350 ml BalanceBalance 970 ml 1100 ml 350 ml Results Result Diagram: 02/10/19 0510 02/10/19 0510 Results 24hrs Laboratory Tests Test 02/10/19 05:10 White Blood Count 6.6 # Red Blood Count 4.28 L Hemoglobin 13.1 L Hematocrit 39.0 L Mean Corpuscular Volume 91.1 Mean Corpuscular Hemoglobin 30.6 Mean Corpuscular Hemoglobin Concent 33.6 Red Cell Distribution Width 12.8 Platelet Count 430 H Mean Platelet Volume 10.6 H Immature Granulocytes % 0.800 H Neutrophils % 63.1 Lymphocytes % 21.8 Monocytes % 10.0 Eosinophils % 3.8 Basophils % 0.5 Nucleated Red Blood Cells % 0.0 Immature Granulocytes # 0.050 H Neutrophils # 4.2 Lymphocytes # 1.4 Monocytes # 0.7 Eosinophils # 0.3 Basophils # 0.0 Nucleated Red Blood Cells # 0.0 Sodium Level 139 Potassium Level 3.6 Chloride Level 102 Carbon Dioxide Level 30 Anion Gap 7 Blood Urea Nitrogen < 2 L Creatinine 0.60 L Glucose Level 126 Calcium Level 8.7 Phosphorus Level 3.6 Magnesium Level 2.2 Albumin 3.2 L Medications Medication Current Medications IV Flush (NS 3 ml) 3 ml PER PROTOCOL IV ; Start 02/01/19 at 09:00 Ondansetron HCl (Zofran Inj) 4 mg Q6H PRN IV NAUSEA/VOMITING Last administered on 02/07/19 09:10; Admin Dose 4 MG; Start 02/01/19 at 09:00 Vancomycin HCl (Vanco Iv Per Pharmacy) VANCOMYCIN PER PHARMACY PER PROTOCOL XX ; Start 02/02/19 at 10:30 Hydromorphone HCl (Dilaudid) 1 mg Q2 PRN IV SEVERE PAIN LEVEL 7-10 Last administered on 02/08/19 12:37; Admin Dose 1 MG; Start 02/02/19 at 13:00 Lorazepam (Ativan) 0.5 mg Q6H PRN IV anxiety Last administered on 02/09/19at 23:05; Admin Dose 0.5 MG; Start 02/02/19 at 13:00 Meropenem/Sodium Chloride 50 ml @ 100 mls/hr Q8 IVPB Last administered on 02/10/19 06:20; Admin Dose 100 MLS/HR; Start 02/03/19 at 15:00 Vancomycin HCl 1.5 gm/Sodium Chloride 250 ml @ 83.333 mls/ hr Q8H IVPB Last administered on 02/10/19at 11:54; Admin Dose 83.333 MLS/HR; Start 02/04/19 at 03:00 Acetaminophen/ Hydrocodone Bitart ([place] (10/325)) 1 tab Q4H PRN PO SEVERE PAIN LEVEL 7-10 Last administered on 02/09/19 20:04; Admin Dose 1 TAB; Start 02/04/19 at 11:30 Acetaminophen/ Hydrocodone Bitart ([place] (5/325)) 1 tab Q6H PRN PO MODERATE PAIN LEVEL 4-6; Start 02/04/19 at 11:30 Fluconazole/ Sodium Chloride 50 ml @ 50 mls/hr Q24H IVPB Last administered on at 13:08; Admin Dose 50 MLS/HR; Start 02/07/19 at 12:00 Acetaminophen (Tylenol Tab) 1,000 mg Q6H PRN PO MILD PAIN(1-3)OR ELEVATED TEMP Last administered on 02/09/19at 14:06; Admin Dose 1,000 MG; Start 02/08/19 at 14:00 Famotidine (Pepcid) 20 mg BID PO Last administered on 02/09/19at 20:04; Admin Dose 20 MG; Start 02/09/19 at 21:00 KELSEY DAS NP February 10, 2019 13:37
[2019-02-10 14:38] VITALS: BP 137/80; PULSE 76; RESP 17
[2019-02-10 19:35] VITALS: BP 140/77; PULSE 75; RESP 16
[2019-02-11 01:30] VITALS: BP 113/76; PULSE 66; RESP 18
[2019-02-11] MEDS: VANCOMYCIN HCL 1.5 GM in SOD CHLORIDE 0.9% 250 ML IVPB SCH ×3 (04:18→18:49)
[2019-02-11 08:01] VITALS: BP 130/81; PULSE 70; RESP 17
[2019-02-11] MEDS: MEROPENEM 1 GM/50ML(PMX) 50 ML IVPB SCH ×3 (08:04→22:06)
[2019-02-11] MEDS: FAMOTIDINE 20 MG TAB PO SCH ×2 (08:05→20:54)
[2019-02-11 08:12] VITALS: BP 197/88
[2019-02-11 14:06] VITALS: BP 152/76; PULSE 76; RESP 18
[2019-02-11] MEDS: FLUCONAZOLE 100 MG/50 ML (PMX) 50 ML IVPB SCH (14:47)
--- NOTE | 2019-02-11 15:39 | PN ---
Date/Time of Note Date/Time of Note DATE: 02/11/19 TIME: 15:36 Assessment/Plan Lines/Catheters IV Catheter Type (from [facility]): Peripheral IV Keyes in Place (from [facility]): No Assessment/Plan Chief Complaint/Hosp Course 1. Recurrent perforated diverticulitis with abscess. HD stable: Repeat ct: acute diverticulitis of the sigmoid colon with slight progression of the perisigmoid inflammation and induration. Increase in size of perisigmoid fluid collection currently measures 6.2 cm in largest diameter. This was measured 3.8 cm in prior study. Dr. Beauchamp spoke wi th IR and they think it is accessible but currently phlegmonous and therefore wont drain much. He recommended repeat CT and IR drain to follow> reviewed CT with radiologist, abscess reportedly smaller and no good window to drain abscess -prolonged abx tx per ID -recommend outpt f/u for elective lap partial colectomy -eventual re-imaging 2. Leukocytosis: resolved -Antibiotics/antifungal per ID -As above -Trend 3. Abdominal pain: Improved -As above 4. BMI 38 -encourage nutrition and exercise optimization Thank you. Patient seen and examined in collaboration with Dr. Chung Beauchamp. Subjective 24 Hr Interval Summary No fevers, chills, sob, congested cough, cp, palpitations, greene, dizziness, n/v/d/dysuria. Abdominal pain improved. Exam/Review of Systems Vital Signs Vitals Vital Signs Date Temp Pulse Resp B/P (MAP) Pulse Ox O2 O2 Flow FiO2 Time Delivery Rate 02/11/19 98.2 76 18 152/76 100 Room Air 14:06 (101) Intake and Output 02/10/19 02/10/19 02/11/19 1515:00 23:00 07:00 IntakeIntake Total 540 ml 1810 ml BalanceBalance 540 ml 1810 ml Exam Free Text/Dictation Constitutional: alert, oriented Psych: nl mood/affect; No anxiety Head: normocephalic, atraumatic Eyes: nl conjunctiva, EOMI, nl lids, nl sclera ENMT: nl external ears & nose, nl lips & teeth, nl nasal mucosa & septum, mucosa pink and moist Neck: supple, non-tender Respiratory: normal air movement; No congested cough Cardiovascular: regular rate and rhythm, nl pulses Gastrointestinal: soft, NT, obese Genitourinary - Male: nl scrotum Musculoskeletal: nl extremities to inspection, nl gait and stance Extremities: normal pulses Neurological: nl mental status, nl speech, nl strength Results Result Diagram: 02/11/1921502/11/19215 FOREST LOWE NP February 11, 2019 15:39
--- NOTE | 2019-02-11 15:49 | CONS ---
Assessment/Plan Assessment/Plan Hospital Course (Demo Recall) Patient is alert feels good Repeat CT of the abdomen and pelvis revealed increased in size fluid collection now 6.2 cm in largest diameter. Please see full report in the chart Antimicrobials: Crista Velazquez Physical examination: Well-nourished well-developed middle-aged man who is alert in no distress. Head atraumatic normocephalic. Neck is supple chest rise symmetrical. Breath sounds clear. Heart: S1-S2. Abdomen soft bowel sounds present. Extremities without cyanosis Assessment: 1. Systemic inflammatory response syndrome 2 to #2 2. Acute diverticulitis with phlegmon/abscess Plan: Stable, continue on IV abx, management per surgery Consultation Date/Type/Reason Admit Date/Time February 01, 2019 at 08:04 Initial Consult Date 02/01/19 Type of Consult id Date/Time of Note DATE: 02/11/19 TIME: 15:49 Exam/Review of Systems Exam Vitals Vital Signs Date Temp Pulse Resp B/P (MAP) Pulse Ox O2 O2 Flow FiO2 Time Delivery Rate 02/11/19 98.2 76 18 152/76 100 Room Air 14:06 (101) Intake and Output 02/10/19 02/10/19 02/11/19 1515:00 23:00 07:00 IntakeIntake Total 540 ml 1810 ml BalanceBalance 540 ml 1810 ml Results Result Diagram: 02/11/19 0216 02/11/19 0216 Results 24hrs Laboratory Tests Test 02/11/19 02:16 White Blood Count 7.1 Red Blood Count 4.36 L Hemoglobin 13.3 L Hematocrit 39.8 L Mean Corpuscular Volume 91.3 Mean Corpuscular Hemoglobin 30.5 Mean Corpuscular Hemoglobin Concent 33.4 Red Cell Distribution Width 12.7 Platelet Count 479 H Mean Platelet Volume 9.9 Immature Granulocytes % 1.100 H Neutrophils % 62.8 Lymphocytes % 21.7 Monocytes % 10.9 Eosinophils % 2.7 Basophils % 0.8 Nucleated Red Blood Cells % 0.0 Immature Granulocytes # 0.080 H Neutrophils # 4.5 Lymphocytes # 1.5 Monocytes # 0.8 Eosinophils # 0.2 Basophils # 0.1 Nucleated Red Blood Cells # 0.0 Sodium Level 140 Potassium Level 4.0 Chloride Level 104 Carbon Dioxide Level 30 Anion Gap 6 Blood Urea Nitrogen 3 L Creatinine 0.61 Glucose Level 111 Calcium Level 8.7 Phosphorus Level 3.8 Magnesium Level 2.1 Albumin 3.2 L Vancomycin Level Trough 14.3 Medications Medication Current Medications IV Flush (NS 3 ml) 3 ml PER PROTOCOL IV ; Start 02/01/19 at 09:00 Ondansetron HCl (Zofran Inj) 4 mg Q6H PRN IV NAUSEA/VOMITING Last administered on 02/07/19at 09:10; Admin Dose 4 MG; Start 02/01/19 at 09:00 Vancomycin HCl (Vanco Iv Per Pharmacy) VANCOMYCIN PER PHARMACY PER PROTOCOL XX ; Start 02/02/19 at 10:30 Hydromorphone HCl (Dilaudid) 1 mg Q2 PRN IV SEVERE PAIN LEVEL 7-10 Last administered on 02/08/19at 12:37; Admin Dose 1 MG; Start 02/02/19 at 13:00 Lorazepam (Ativan) 0.5 mg Q6H PRN IV anxiety Last administered on 02/09/19at 23:05; Admin Dose 0.5 MG; Start 02/02/19 at 13:00 Meropenem/Sodium Chloride 50 ml @ 100 mls/hr Q8 IVPB Last administered on 02/11/19at 08:04; Admin Dose 100 MLS/HR; Start 02/03/19 at 15:00 Vancomycin HCl 1.5 gm/Sodium Chloride 250 ml @ 83.333 mls/ hr Q8H IVPB Last administered on 02/11/19at 11:16; Admin Dose 83.333 MLS/HR; Start 02/04/19 at 03:00 Acetaminophen/ Hydrocodone Bitart ([place] (10/325)) 1 tab Q4H PRN PO SEVERE PAIN LEVEL 7-10 Last administered on 02/09/19at 20:04; Admin Dose 1 TAB; Start 02/04/19 at 11:30 Acetaminophen/ Hydrocodone Bitart ([place] (5/325)) 1 tab Q6H PRN PO MODERATE PAIN LEVEL 4-6; Start 02/04/19 at 11:30 Fluconazole/ Sodium Chloride 50 ml @ 50 mls/hr Q24H IVPB Last administered on 02/11/19at 14:47; Admin Dose 50 MLS/HR; Start 02/07/19 at 12:00 Acetaminophen (Tylenol Tab) 1,000 mg Q6H PRN PO MILD PAIN(1-3)OR ELEVATED TEMP Last administered on 02/09/19at 14:06; Admin Dose 1,000 MG; Start 02/08/19 at 14:00 Famotidine (Pepcid) 20 mg BID PO Last administered on 02/09/19at 20:04; Admin Dose 20 MG; Start 02/09/19 at 21:00 KELSEY DAS NP February 11, 2019 15:49
--- NOTE | 2019-02-11 16:24 | PN ---
Date/Time of Note Date/Time of Note DATE: 02/11/19 TIME: 16:24 Objective Vitals Vital Signs Date Temp Pulse Resp B/P (MAP) Pulse Ox O2 O2 Flow FiO2 Time Delivery Rate 02/11/19 98.2 76 18 152/76 100 Room Air 14:06 (101) Intake and Output 02/10/19 02/10/19 02/11/19 1515:00 23:00 07:00 IntakeIntake Total 540 ml 1810 ml BalanceBalance 540 ml 1810 ml Results Result Diagram: 02/11/19 0216 02/11/19 0216 Medications Medications Current Medications IV Flush (NS 3 ml) 3 ml PER PROTOCOL IV ; Start 02/01/19 at 09:00 Ondansetron HCl (Zofran Inj) 4 mg Q6H PRN IV NAUSEA/VOMITING Last administered on 02/07/19at 09:10; Admin Dose 4 MG; Start 02/01/19 at 09:00 Vancomycin HCl (Vanco Iv Per Pharmacy) VANCOMYCIN PER PHARMACY PER PROTOCOL XX ; Start 02/02/19 at 10:30 Hydromorphone HCl (Dilaudid) 1 mg Q2 PRN IV SEVERE PAIN LEVEL 7-10 Last administered on 02/08/19at 12:37; Admin Dose 1 MG; Start 02/02/19 at 13:00 Lorazepam (Ativan) 0.5 mg Q6H PRN IV anxiety Last administered on 02/09/19at 23:05; Admin Dose 0.5 MG; Start 02/02/19 at 13:00 Meropenem/Sodium Chloride 50 ml @ 100 mls/hr Q8 IVPB Last administered on 02/11/19at 08:04; Admin Dose 100 MLS/HR; Start 02/03/19 at 15:00 Vancomycin HCl 1.5 gm/Sodium Chloride 250 ml @ 83.333 mls/ hr Q8H IVPB Last administered on 02/11/19at 11:16; Admin Dose 83.333 MLS/HR; Start 02/04/19 at 03:00 Acetaminophen/ Hydrocodone Bitart ([place] (10/325)) 1 tab Q4H PRN PO SEVERE PAIN LEVEL 7-10 Last administered on 02/09/19at 20:04; Admin Dose 1 TAB; Start 02/04/19 at 11:30 Acetaminophen/ Hydrocodone Bitart ([place] (5/325)) 1 tab Q6H PRN PO MODERATE PAIN LEVEL 4-6; Start 02/04/19 at 11:30 Fluconazole/ Sodium Chloride 50 ml @ 50 mls/hr Q24H IVPB Last administered on 02/11/19at 14:47; Admin Dose 50 MLS/HR; Start 02/07/19 at 12:00 Acetaminophen (Tylenol Tab) 1,000 mg Q6H PRN PO MILD PAIN(1-3)OR ELEVATED TEMP Last administered on 02/09/19at 14:06; Admin Dose 1,000 MG; Start 02/08/19 at 14:00 Famotidine (Pepcid) 20 mg BID PO Last administered on 02/09/19at 20:04; Admin Dose 20 MG; Start 02/09/19 at 21:00 VTE Prophylaxis Risk score (from [facility] [place]0 risk: 1 SCD applied (from [facility] [place]): No SCD contraindication: other Lines/Catheters IV Catheter Type: Keyes in Place: No Assessment/Plan Hospital Course Subjective No abdominal pain, doing well Objective Physical exam General: Patient is laying in bed and answers questions appropriately Mentation: Patient is alert and oriented 4, Head: Normocephalic atraumatic Eyes: EOMI, pupils reactive to light Neck: Supple, nontender, midline Respiratory: Clear to auscultation bilaterally Cardiovascular: regular rate, no obvious murmurs Gastrointestinal: non-tender to palpation, bowel sounds heard. Neurological: Moves all extremities spontaneously Skin: No new skin lesions Assessment/Plan 1. Acute diverticulitis with phlegmon- stable - repeat CT scan 02/08 shows decreased size of abscess and not able to be drained - Gen surgery on board and appreciated recommendations. will need eventual partial lap dani - WBC normalized and remains afebrile - ID on board and appreciate recommendations. Per surgery, will need prolonged IV antibiotic therapy 2. Abdominal pain- stable - Secondary to above - pain control, has not needed pain meds for a few days 3. Anxiety - Ativan PRN 4. Disposition - Continue antibiotics per ID recommendations. Recommend recheck CT scan w or , and if continues to decrease in size, d/c with IV antibiotics and outpatient follow up KAYLEN MURO February 11, 2019 16:24
[2019-02-11 20:00] VITALS: BP 128/78; PULSE 70; RESP 18
[2019-02-11] MEDS: LORAZEPAM 2 MG INJ IV PRN (23:19)
[2019-02-12 02:00] VITALS: BP 108/62; PULSE 76; RESP 18
[2019-02-12] MEDS: VANCOMYCIN HCL 1.5 GM in SOD CHLORIDE 0.9% 250 ML IVPB SCH ×3 (03:16→19:17)
[2019-02-12] MEDS: LORAZEPAM 2 MG INJ IV PRN ×2 (05:35→22:15)
[2019-02-12] MEDS: MEROPENEM 1 GM/50ML(PMX) 50 ML IVPB SCH ×3 (05:35→22:15)
[2019-02-12 07:48] VITALS: BP 123/76; PULSE 84; RESP 16
[2019-02-12] MEDS: FAMOTIDINE 20 MG TAB PO SCH ×2 (09:21→21:10)
[2019-02-12] MEDS ORDERED: BARIUM SULF 2% 450 ML BTL (BERRY SMOOTHIE) PO ONE (13:00)
[2019-02-12 13:17] VITALS: BP 114/73; PULSE 67; RESP 16
[2019-02-12] MEDS ORDERED: IOHEXOL 14.3 MG(I)/ML (ADULT) BTL PO ONE (14:00)
--- NOTE | 2019-02-12 14:01 | CONS ---
Assessment/Plan Assessment/Plan Hospital Course (Demo Recall) Patient is alert feels good no fevers no pain Antimicrobials: Vanco, Merrem Diflucan Physical examination: Well-nourished well-developed middle-aged man who is alert in no distress. Head atraumatic normocephalic. Neck is supple chest rise symmetrical. Breath sounds clear. Heart: S1-S2. Abdomen soft bowel sounds present. Extremities without cyanosis Assessment: 1. Systemic inflammatory response syndrome 2 to #2 2. Acute diverticulitis with phlegmon/abscess Plan: Stable, continue on current Abx, pending repeat CT, management per surgery Consultation Date/Type/Reason Admit Date/Time February 01, 2019 at 08:04 Initial Consult Date 02/01/19 Type of Consult id Date/Time of Note DATE: 02/12/19 TIME: 14:01 Exam/Review of Systems Exam Vitals Vital Signs Date Temp Pulse Resp B/P (MAP) Pulse Ox O2 O2 Flow FiO2 Time Delivery Rate 02/12/19 98.2 67 16 114/73 98 13:17 (87) 02/11/19 Room Air 14:06 Intake and Output 02/11/19 02/11/19 02/12/19 1515:00 23:00 07:00 IntakeIntake Total 1250 ml 840 ml 300 ml BalanceBalance 1250 ml 840 ml 300 ml Results Result Diagram: 02/12/19 0515 02/11/19 0216 Results 24hrs Laboratory Tests Test 02/12/19 05:15 White Blood Count 9.2 # Red Blood Count 4.49 L Hemoglobin 13.7 L Hematocrit 40.8 L Mean Corpuscular Volume 90.9 Mean Corpuscular Hemoglobin 30.5 Mean Corpuscular Hemoglobin Concent 33.6 Red Cell Distribution Width 12.8 Platelet Count 553 H Mean Platelet Volume 9.6 Immature Granulocytes % 1.400 H Neutrophils % 67.6 Lymphocytes % 19.6 Monocytes % 8.9 Eosinophils % 2.0 Basophils % 0.5 Nucleated Red Blood Cells % 0.0 Immature Granulocytes # 0.130 H Neutrophils # 6.2 Lymphocytes # 1.8 Monocytes # 0.8 Eosinophils # 0.2 Basophils # 0.1 Nucleated Red Blood Cells # 0.0 Medications Medication Current Medications IV Flush (NS 3 ml) 3 ml PER PROTOCOL IV ; Start 02/01/19 at 09:00 Ondansetron HCl (Zofran Inj) 4 mg Q6H PRN IV NAUSEA/VOMITING Last administered on 02/07/19 09:10; Admin Dose 4 MG; Start 02/01/19 at 09:00 Vancomycin HCl (Vanco Iv Per Pharmacy) VANCOMYCIN PER PHARMACY PER PROTOCOL XX ; Start 02/02/19 at 10:30 Hydromorphone HCl (Dilaudid) 1 mg Q2 PRN IV SEVERE PAIN LEVEL 7-10 Last administered on 02/08/19 12:37; Admin Dose 1 MG; Start 02/02/19 at 13:00 Lorazepam (Ativan) 0.5 mg Q6H PRN IV anxiety Last administered on 02/12/19 05:35; Admin Dose 0.5 MG; Start 02/02/19 at 13:00 Meropenem/Sodium Chloride 50 ml @ 100 mls/hr Q8 IVPB Last administered on 02/12/19 05:35; Admin Dose 100 MLS/HR; Start 02/03/19 at 15:00 Vancomycin HCl 1.5 gm/Sodium Chloride 250 ml @ 83.333 mls/ hr Q8H IVPB Last administered on 02/12/19 10:43; Admin Dose 83.333 MLS/HR; Start 02/04/19 at 03:00 Acetaminophen/ Hydrocodone Bitart ([place] (10/325)) 1 tab Q4H PRN PO SEVERE PAIN LEVEL 7-10 Last administered on 02/09/19 20:04; Admin Dose 1 TAB; Start 02/04/19 at 11:30 Acetaminophen/ Hydrocodone Bitart ([place] (5/325)) 1 tab Q6H PRN PO MODERATE PAIN LEVEL 4-6 Last administered on 02/11/19 17:49; Admin Dose 1 TAB; Start 02/04/19 at 11:30 Fluconazole/ Sodium Chloride 50 ml @ 50 mls/hr Q24H IVPB Last administered on 02/11/19 14:47; Admin Dose 50 MLS/HR; Start 02/07/19 at 12:00 Acetaminophen (Tylenol Tab) 1,000 mg Q6H PRN PO MILD PAIN(1-3)OR ELEVATED TEMP Last administered on 02/09/19 14:06; Admin Dose 1,000 MG; Start 02/08/19 at 14:00 Famotidine (Pepcid) 20 mg BID PO Last administered on 02/12/19at 09:21; Admin Dose 20 MG; Start 02/09/19 at 21:00 Iohexol ((Gastrografin therapeutic equivalent)) Adult Formulation (Ple... GIVE PRIOR TO CT ONCE PO ; Start 02/12/19 at 14:00; Stop 02/12/19 at 14:01; Status UNKELSEY MARTINEZ NP February 12, 2019 14:01
[2019-02-12] MEDS: FLUCONAZOLE 100 MG/50 ML (PMX) 50 ML IVPB SCH (14:52)
--- NOTE | 2019-02-12 14:56 | PN ---
Date/Time of Note Date/Time of Note DATE: 02/12/19 TIME: 14:56 Objective Vitals Vital Signs Date Temp Pulse Resp B/P (MAP) Pulse Ox O2 O2 Flow FiO2 Time Delivery Rate 02/12/19 98.2 67 16 114/73 98 13:17 (87) 02/11/19 Room Air 14:06 Intake and Output 02/11/19 02/11/19 02/12/19 1515:00 23:00 07:00 IntakeIntake Total 1250 ml 840 ml 300 ml BalanceBalance 1250 ml 840 ml 300 ml Results Result Diagram: 02/12/19 0515 02/11/19 0216 Medications Medications Current Medications IV Flush (NS 3 ml) 3 ml PER PROTOCOL IV ; Start 02/01/19 at 09:00 Ondansetron HCl (Zofran Inj) 4 mg Q6H PRN IV NAUSEA/VOMITING Last administered on 02/07/19at 09:10; Admin Dose 4 MG; Start 02/01/19 at 09:00 Vancomycin HCl (Vanco Iv Per Pharmacy) VANCOMYCIN PER PHARMACY PER PROTOCOL XX ; Start 02/02/19 at 10:30 Hydromorphone HCl (Dilaudid) 1 mg Q2 PRN IV SEVERE PAIN LEVEL 7-10 Last administered on 02/08/19at 12:37; Admin Dose 1 MG; Start 02/02/19 at 13:00 Lorazepam (Ativan) 0.5 mg Q6H PRN IV anxiety Last administered on 02/12/19at 05:35; Admin Dose 0.5 MG; Start 02/02/19 at 13:00 Meropenem/Sodium Chloride 50 ml @ 100 mls/hr Q8 IVPB Last administered on 02/12/19at 14:52; Admin Dose 100 MLS/HR; Start 02/03/19 at 15:00 Vancomycin HCl 1.5 gm/Sodium Chloride 250 ml @ 83.333 mls/ hr Q8H IVPB Last administered on 02/12/19at 10:43; Admin Dose 83.333 MLS/HR; Start 02/04/19 at 03:00 Acetaminophen/ Hydrocodone Bitart ([place] (10/325)) 1 tab Q4H PRN PO SEVERE PAIN LEVEL 7-10 Last administered on 02/09/19at 20:04; Admin Dose 1 TAB; Start 02/04/19 at 11:30 Acetaminophen/ Hydrocodone Bitart ([place] (5/325)) 1 tab Q6H PRN PO MODERATE PAIN LEVEL 4-6 Last administered on 02/11/19at 17:49; Admin Dose 1 TAB; Start 02/04/19 at 11:30 Fluconazole/ Sodium Chloride 50 ml @ 50 mls/hr Q24H IVPB Last administered on 02/12/19at 14:52; Admin Dose 50 MLS/HR; Start 02/07/19 at 12:00 Acetaminophen (Tylenol Tab) 1,000 mg Q6H PRN PO MILD PAIN(1-3)OR ELEVATED TEMP Last administered on 02/09/19at 14:06; Admin Dose 1,000 MG; Start 02/08/19 at 14:00 Famotidine (Pepcid) 20 mg BID PO Last administered on 02/12/19at 09:21; Admin Dose 20 MG; Start 02/09/19 at 21:00 VTE Prophylaxis Risk score (from [facility])>0 risk: 1 SCD applied (from [facility] [place]): No SCD contraindication: other Lines/Catheters IV Catheter Type: Keyes in Place: No Assessment/Plan Hospital Course Subjective No abdominal pain, doing well Objective Physical exam General: Patient is laying in bed and answers questions appropriately Mentation: Patient is alert and oriented 4, Head: Normocephalic atraumatic Eyes: EOMI, pupils reactive to light Neck: Supple, nontender, midline Respiratory: Clear to auscultation bilaterally Cardiovascular: regular rate, no obvious murmurs Gastrointestinal: non-tender to palpation, bowel sounds heard. Neurological: Moves all extremities spontaneously Skin: No new skin lesions Assessment/Plan 1. Acute diverticulitis with phlegmon- stable - repeat CT scan 02/08 shows decreased size of abscess and not able to be drained - Gen surgery on board and appreciated recommendations. will need eventual partial lap dani - WBC normalized and remains afebrile - ID on board and appreciate recommendations. Per surgery, will need prolonged IV antibiotic therapy 2. Abdominal pain- stable - Secondary to above - pain control, has not needed pain meds for a few days 3. Anxiety - Ativan PRN 4. Disposition - Continue antibiotics per ID recommendations. Repeat CT scan ordered today KAYLEN MURO February 12, 2019 14:56
--- NOTE | 2019-02-12 17:18 | PN ---
Date/Time of Note Date/Time of Note DATE: 02/12/19 TIME: 17:15 Assessment/Plan Lines/Catheters IV Catheter Type (from [facility]): Keyes in Place (from [facility]): No Assessment/Plan Chief Complaint/Hosp Course 1. Recurrent perforated diverticulitis with abscess. HD stable: Repeat ct: acute diverticulitis of the sigmoid colon with slight progression of the perisigmoid inflammation and induration. Increase in size of perisigmoid fluid collection currently measures 6.2 cm in largest diameter. This was measured 3.8 cm in prior study. Dr. Beauchamp spoke with IR and they think it is accessible but currently phlegmonous and therefore wont drain much. He recommended repeat CT and IR drain to follow> reviewed CT with radiologist, abscess reportedly smaller and no good window to drain abs cess -prolonged abx tx per ID -recommend outpt f/u for elective lap partial colectomy -eventual re-imaging > repeat ct pending 2. Leukocytosis: resolved -Antibiotics/antifungal per ID -As above -Trend 3. Abdominal pain: Improved -As above 4. BMI 38 -encourage nutrition and exercise optimization Thank you. Patient seen and examined in collaboration with Dr. Chung Beauchamp. Subjective 24 Hr Interval Summary Feels well. No fevers, chills, sob, congested cough, cp, palpitations, greene, dizziness, n/v/d/dysuria. Exam/Review of Systems Vital Signs Vitals Vital Signs Date Temp Pulse Resp B/P (MAP) Pulse Ox O2 O2 Flow FiO2 Time Delivery Rate 02/12/19 98.2 67 16 114/73 98 13:17 (87) 02/11/19 Room Air 14:06 Intake and Output 02/11/19 02/11/19 02/12/19 1515:00 23:00 07:00 IntakeIntake Total 1250 ml 840 ml 300 ml BalanceBalance 1250 ml 840 ml 300 ml Exam Free Text/Dictation Constitutional: alert, oriented Psych: nl mood/affect; No anxiety Head: normocephalic, atraumatic Eyes: nl conjunctiva, EOMI, nl lids, nl sclera ENMT: nl external ears & nose, nl lips & teeth, nl nasal mucosa & septum, mucosa pink and moist Neck: supple, non-tender Respiratory: normal air movement; No congested cough Cardiovascular: regular rate and rhythm, nl pulses Gastrointestinal: soft, NT, obese Genitourinary - Male: nl scrotum Musculoskeletal: nl extremities to inspection, nl gait and stance Extremities: normal pulses Neurological: nl mental status, nl speech, nl strength Results Result Diagram: 02/12/19 0515 02/11/19 0216 FOREST LOWE NP February 12, 2019 17:18
[2019-02-12 20:12] VITALS: BP 125/86; PULSE 94; RESP 18
[2019-02-13 01:08] VITALS: BP 90/50; PULSE 87; RESP 18
[2019-02-13 02:25] VITALS: BP 115/59; PULSE 80
[2019-02-13] MEDS: VANCOMYCIN HCL 1.5 GM in SOD CHLORIDE 0.9% 250 ML IVPB SCH ×3 (03:19→18:43)
[2019-02-13] MEDS: LORAZEPAM 2 MG INJ IV PRN ×3 (05:12→23:34)
[2019-02-13] MEDS: MEROPENEM 1 GM/50ML(PMX) 50 ML IVPB SCH ×3 (06:24→21:51)
[2019-02-13 07:29] VITALS: BP 110/74; PULSE 83; RESP 18
[2019-02-13] MEDS: FAMOTIDINE 20 MG TAB PO SCH ×2 (08:46→21:51)
[2019-02-13] MEDS: FLUCONAZOLE 100 MG/50 ML (PMX) 50 ML IVPB SCH (12:40)
--- NOTE | 2019-02-13 13:52 | PN ---
Date/Time of Note Date/Time of Note DATE: 02/13/19 TIME: 13:50 Objective Vitals Vital Signs Date Temp Pulse Resp B/P (MAP) Pulse Ox O2 O2 Flow FiO2 Time Delivery Rate 02/13/19 98.6 83 18 110/74 98 Room Air 07:29 (86) Intake and Output 02/12/19 02/12/19 02/13/19 1515:00 23:00 07:00 IntakeIntake Total 480 ml 650 ml 300 ml BalanceBalance 480 ml 650 ml 300 ml Results Result Diagram: 02/13/19 0446 02/13/19 0446 Medications Medications Current Medications IV Flush (NS 3 ml) 3 ml PER PROTOCOL IV ; Start 02/01/19 at 09:00 Ondansetron HCl (Zofran Inj) 4 mg Q6H PRN IV NAUSEA/VOMITING Last administered on 02/07/19at 09:10; Admin Dose 4 MG; Start 02/01/19 at 09:00 Vancomycin HCl (Vanco Iv Per Pharmacy) VANCOMYCIN PER PHARMACY PER PROTOCOL XX ; Start 02/02/19 at 10:30 Hydromorphone HCl (Dilaudid) 1 mg Q2 PRN IV SEVERE PAIN LEVEL 7-10 Last administered on 02/08/19at 12:37; Admin Dose 1 MG; Start 02/02/19 at 13:00 Lorazepam (Ativan) 0.5 mg Q6H PRN IV anxiety Last administered on 02/13/19at 11:22; Admin Dose 0.5 MG; Start 02/02/19 at 13:00 Meropenem/Sodium Chloride 50 ml @ 100 mls/hr Q8 IVPB Last administered on 02/13/19at 06:24; Admin Dose 100 MLS/HR; Start 02/03/19 at 15:00 Vancomycin HCl 1.5 gm/Sodium Chloride 250 ml @ 83.333 mls/ hr Q8H IVPB Last administered on 02/13/19at 10:48; Admin Dose 83.333 MLS/HR; Start 02/04/19 at 03:00 Acetaminophen/ Hydrocodone Bitart ([place] (10/325)) 1 tab Q4H PRN PO SEVERE PAIN LEVEL 7-10 Last administered on 02/09/19at 20:04; Admin Dose 1 TAB; Start 02/04/19 at 11:30 Acetaminophen/ Hydrocodone Bitart ([place] (5/325)) 1 tab Q6H PRN PO MODERATE PAIN LEVEL 4-6 Last administered on 02/11/19at 17:49; Admin Dose 1 TAB; Start 02/04/19 at 11:30 Fluconazole/ Sodium Chloride 50 ml @ 50 mls/hr Q24H IVPB Last administered on 02/13/19at 12:40; Admin Dose 50 MLS/HR; Start 02/07/19 at 12:00 Acetaminophen (Tylenol Tab) 1,000 mg Q6H PRN PO MILD PAIN(1-3)OR ELEVATED TEMP Last administered on 02/09/19at 14:06; Admin Dose 1,000 MG; Start 02/08/19 at 14:00 Famotidine (Pepcid) 20 mg BID PO Last administered on 02/13/19at 08:46; Admin Dose 20 MG; Start 02/09/19 at 21:00 Miscellaneous Information (*Rx Drug Level Order Reminder*) VANCOMYCIN TROUGH AT 1800 1800 ONCE XX ; Start 02/13/19 at 18:00; Stop 02/13/19 at 18:01 VTE Prophylaxis Risk score (from [facility] [place])>0 risk: 1 SCD applied (from [facility] [place]): No SCD contraindication: other Lines/Catheters IV Catheter Type: Keyes in Place: No Assessment/Plan Hospital Course Subjective No abdominal pain, doing well Objective Physical exam General: Patient is laying in bed and answers questions appropriately Mentation: Patient is alert and oriented 4, Head: Normocephalic atraumatic Eyes: EOMI, pupils reactive to light Neck: Supple, nontender, midline Respiratory: Clear to auscultation bilaterally Cardiovascular: regular rate, no obvious murmurs Gastrointestinal: non-tender to palpation, bowel sounds heard. Neurological: Moves all extremities spontaneously Skin: No new skin lesions Assessment/Plan 1. Acute diverticulitis with phlegmon- stable - repeat CT scan 02/08 shows decreased size of abscess and not able to be drained , repeat ct done 02/12/19, awaiting recs from surgeon - Gen surgery on board and appreciated recommendations. - WBC normalized and remains afebrile - ID on board and appreciate recommendations. Per surgery, will need prolonged IV antibiotic therapy 2. Abdominal pain- stable - Secondary to above - pain control, has not needed pain meds for a few days 3. Anxiety - Ativan PRN 4. Disposition - Continue antibiotics per ID recommendations. KAYLEN MURO February 13, 2019 13:52
[2019-02-13 14:06] VITALS: BP 106/56; PULSE 86; RESP 18
--- NOTE | 2019-02-13 14:43 | CONS ---
Assessment/Plan Assessment/Plan Hospital Course (Demo Recall) Patient is alert feels good no fevers no pain Antimicrobials: Vanco, Merrem Diflucan CT of the abdomen repeated yesterday revealed sigmoid diverticulitis with phlegmon, extraluminal gas bubbles and pericolic abscess which communicates with the lumen of the bowel. Mild improvement compared to the recent prior study Physical examination: Well-nourished well-developed middle-aged man who is alert in no distress. Head atraumatic normocephalic. Neck is supple chest rise symmetrical. Breath sounds clear. Heart: S1-S2. Abdomen soft bowel sounds present. Extremities without cyanosis Assessment: 1. Systemic inflammatory response syndrome 2 to #2 2. Acute diverticulitis with phlegmon/abscess Plan: Clinically unchanged, stable, continue on current abx, management per surg isha Consultation Date/Type/Reason Admit Date/Time February 01, 2019 at 08:04 Initial Consult Date 02/01/19 Type of Consult id Date/Time of Note DATE: 02/13/19 TIME: 14:42 Exam/Review of Systems Exam Vitals Vital Signs Date Temp Pulse Resp B/P (MAP) Pulse Ox O2 O2 Flow FiO2 Time Delivery Rate 02/13/19 98.6 86 18 106/56 99 Room Air 14:06 (73) Intake and Output 02/12/19 02/12/19 02/13/19 1515:00 23:00 07:00 IntakeIntake Total 480 ml 650 ml 300 ml BalanceBalance 480 ml 650 ml 300 ml Results Result Diagram: 02/13/19 0446 02/13/19 0446 Results 24hrs Laboratory Tests Test 02/13/19 04:46 White Blood Count 10.6 Red Blood Count 4.58 L Hemoglobin 14.1 Hematocrit 41.6 L Mean Corpuscular Volume 90.8 Mean Corpuscular Hemoglobin 30.8 Mean Corpuscular Hemoglobin Concent 33.9 Red Cell Distribution Width 12.8 Platelet Count 562 H Mean Platelet Volume 9.4 Immature Granulocytes % 1.800 H Neutrophils % 72.1 Lymphocytes % 16.1 Monocytes % 7.4 Eosinophils % 1.9 Basophils % 0.7 Nucleated Red Blood Cells % 0.0 Immature Granulocytes # 0.190 H Neutrophils # 7.7 H Lymphocytes # 1.7 Monocytes # 0.8 Eosinophils # 0.2 Basophils # 0.1 Nucleated Red Blood Cells # 0.0 Sodium Level 138 Potassium Level 4.1 Chloride Level 103 Carbon Dioxide Level 25 Anion Gap 10 Blood Urea Nitrogen 7 Creatinine 0.55 L Est Glomerular Filtrat Rate mL/min > 60 Glucose Level 124 Calcium Level 9.0 Phosphorus Level 4.3 Magnesium Level 2.2 Medications Medication Current Medications IV Flush (NS 3 ml) 3 ml PER PROTOCOL IV ; Start 02/01/19 at 09:00 Ondansetron HCl (Zofran Inj) 4 mg Q6H PRN IV NAUSEA/VOMITING Last administered on 02/07/19 09:10; Admin Dose 4 MG; Start 02/01/19 at 09:00 Vancomycin HCl (Vanco Iv Per Pharmacy) VANCOMYCIN PER PHARMACY PER PROTOCOL XX ; Start 02/02/19 at 10:30 Hydromorphone HCl (Dilaudid) 1 mg Q2 PRN IV SEVERE PAIN LEVEL 7-10 Last administered on 02/08/19 12:37; Admin Dose 1 MG; Start 02/02/19 at 13:00 Lorazepam (Ativan) 0.5 mg Q6H PRN IV anxiety Last administered on 02/13/19 11:22; Admin Dose 0.5 MG; Start 02/02/19 at 13:00 Meropenem/Sodium Chloride 50 ml @ 100 mls/hr Q8 IVPB Last administered on 02/13/19 06:24; Admin Dose 100 MLS/HR; Start 02/03/19 at 15:00 Vancomycin HCl 1.5 gm/Sodium Chloride 250 ml @ 83.333 mls/ hr Q8H IVPB Last administered on 02/13/19 10:48; Admin Dose 83.333 MLS/HR; Start 02/04/19 at 03:00 Acetaminophen/ Hydrocodone Bitart ([place] (10/325)) 1 tab Q4H PRN PO SEVERE PAIN LEVEL 7-10 Last administered on 02/09/19 20:04; Admin Dose 1 TAB; Start 02/04/19 at 11:30 Acetaminophen/ Hydrocodone Bitart ([place] (5/325)) 1 tab Q6H PRN PO MODERATE PAIN LEVEL 4-6 Last administered on 02/11/19 17:49; Admin Dose 1 TAB; Start 02/04/19 at 11:30 Fluconazole/ Sodium Chloride 50 ml @ 50 mls/hr Q24H IVPB Last administered on 02/13/19at 12:40; Admin Dose 50 MLS/HR; Start 02/07/19 at 12:00 Acetaminophen (Tylenol Tab) 1,000 mg Q6H PRN PO MILD PAIN(1-3)OR ELEVATED TEMP Last administered on 02/09/19at 14:06; Admin Dose 1,000 MG; Start 02/08/19 at 14:00 Famotidine (Pepcid) 20 mg BID PO Last administered on 02/13/19at 08:46; Admin Dose 20 MG; Start 02/09/19 at 21:00 Miscellaneous Information (*Rx Drug Level Order Reminder*) VANCOMYCIN TROUGH AT 1800 1800 ONCE XX ; Start 02/13/19 at 18:00; Stop 02/13/19 at 18:01 KELSEY DAS NP February 13, 2019 14:43
--- NOTE | 2019-02-13 14:57 | PN ---
Date/Time of Note Date/Time of Note DATE: 02/13/19 TIME: 14:50 Assessment/Plan Lines/Catheters IV Catheter Type (from [facility]): Keyes in Place (from [facility]): No Assessment/Plan Chief Complaint/Hosp Course 1. Recurrent perforated diverticulitis with abscess. HD stable: Repeat ct: acute diverticulitis of the sigmoid colon with slight progression of the perisigmoid inflammation and induration. Increase in size of perisigmoid fluid collection currently measures 6.2 cm in largest diameter. This was measured 3.8 cm in prior study. Dr. Beauchamp spoke with IR and they think it is accessible but currently phlegmonous and therefore wont drain much. He recommended repeat CT and IR drain to follow> reviewed CT with radiologist, abscess reportedly smaller and no good window to drain abs cess; CT showed improvement -prolonged abx tx per ID -recommend outpt f/u for elective lap partial colectomy -eventual re-imaging > repeat ct noted> okay for discharge from surgical standpoint. Will need antibiotics per ID. Will need follow-up with GI for eventual colonoscopy and then with our service for eventual colectomy. This was discussed with patient. 2. Leukocytosis: resolved -Antibiotics/antifungal per ID -As above -Trend 3. Abdominal pain: Improved -As above 4. BMI 38 -encourage nutrition and exercise optimization Thank you. Patient seen and examined in collaboration with Dr. Chung Beauchamp. Subjective 24 Hr Interval Summary Feels well. No fevers, chills, sob, congested cough, cp, palpitations, greene, dizziness, nausea, vomiting, diarrhea, dysuria. Exam/Review of Systems Vital Signs Vitals Vital Signs Date Temp Pulse Resp B/P (MAP) Pulse Ox O2 O2 Flow FiO2 Time Delivery Rate 02/13/19 98.6 86 18 106/56 99 Room Air 14:06 (73) Intake and Output 02/12/19 02/12/19 02/13/19 1515:00 23:00 07:00 IntakeIntake Total 480 ml 650 ml 300 ml BalanceBalance 480 ml 650 ml 300 ml Exam Free Text/Dictation Constitutional: alert, oriented Psych: nl mood/affect; No anxiety Head: normocephalic, atraumatic Eyes: nl conjunctiva, EOMI, nl lids, nl sclera ENMT: nl external ears & nose, nl lips & teeth, nl nasal mucosa & septum, mucosa pink and moist Neck: supple, non-tender Respiratory: normal air movement; No congested cough Cardiovascular: regular rate and rhythm, nl pulses Gastrointestinal: soft, NT, obese Genitourinary - Male: nl scrotum Musculoskeletal: nl extremities to inspection, nl gait and stance Extremities: normal pulses Neurological: nl mental status, nl speech, nl strength Results Result Diagram: 02/13/19 0446 02/13/19 0446 FOREST LOWE NP February 13, 2019 14:57
[2019-02-13 20:31] VITALS: BP 128/72; PULSE 82; RESP 18
[2019-02-14 02:11] VITALS: BP 99/60; PULSE 85; RESP 18
[2019-02-14] MEDS: VANCOMYCIN HCL 1.25 GM in SOD CHLORIDE 0.9% 250 ML IVPB SCH ×3 (04:25→20:38)
[2019-02-14] MEDS: MEROPENEM 1 GM/50ML(PMX) 50 ML IVPB SCH (05:32)
[2019-02-14] MEDS: LORAZEPAM 2 MG INJ IV PRN ×2 (05:33→13:32)
[2019-02-14 07:48] VITALS: BP 121/68; PULSE 78; RESP 18
[2019-02-14] MEDS: FAMOTIDINE 20 MG TAB PO SCH ×2 (09:30→20:38)
[2019-02-14] MEDS ORDERED: LIDOCAINE 1% (MPF) 5 ML VIAL SC ONE (10:30)
[2019-02-14] MEDS: FLUCONAZOLE 100 MG/50 ML (PMX) 50 ML IVPB SCH (11:25)
--- NOTE | 2019-02-14 11:38 | CONS ---
Assessment/Plan Assessment/Plan Hospital Course (Demo Recall) No acute events Antimicrobials: Vanco, Merrem Diflucan CT of the abdomen repeated yesterday revealed sigmoid diverticulitis with phlegmon, extraluminal gas bubbles and pericolic abscess which communicates with the lumen of the bowel. Mild improvement compared to the recent prior study Physical examination: Well-nourished well-developed middle-aged man who is alert in no distress. Head atraumatic normocephalic. Neck is supple chest rise symmetrical. Breath sounds clear. Heart: S1-S2. Abdomen soft bowel sounds present. Extremities without cyanosis Assessment: 1. Systemic inflammatory response syndrome 2 to #2 2. Acute diverticulitis with phlegmon/abscess Plan:Remains stable, anticipate continue on IV abx for another 7-1o days, poss longer, repeat CT in one week, ok change Merrem to Invanz when dc'd home Consultation Date/Type/Reason Admit Date/Time February 01, 2019 at 08:04 Initial Consult Date 02/01/19 Type of Consult id Date/Time of Note DATE: 02/14/19 TIME: 11:36 Exam/Review of Systems Exam Vitals Vital Signs Date Temp Pulse Resp B/P (MAP) Pulse Ox O2 O2 Flow FiO2 Time Delivery Rate 02/14/19 98.0 78 18 121/68 99 Room Air 07:48 (85) Intake and Output 02/13/19 02/13/19 02/14/19 1515:00 23:00 07:00 IntakeIntake Total 890 ml 1200 ml 300 ml BalanceBalance 890 ml 1200 ml 300 ml Results Result Diagram: 02/14/19 0501 02/14/19 0501 Results 24hrs Laboratory Tests Test 02/13/19 17:54 02/14/19 05:01 Vancomycin Level Trough 17.9 White Blood Count 8.1 # Red Blood Count 4.57 L Hemoglobin 14.0 Hematocrit 41.7 L Mean Corpuscular Volume 91.2 Mean Corpuscular Hemoglobin 30.6 Mean Corpuscular Hemoglobin Concent 33.6 Red Cell Distribution Width 12.6 Platelet Count 384 # Mean Platelet Volume 11.3 #H Immature Granulocytes % 1.800 H Neutrophils % Segmented Neutrophils % (Manual) 50 Band Neutrophils % (Manual) 4 Lymphocytes % Lymphocytes % (Manual) 24 Reactive Lymphocytes % (Manual) 4 H Monocytes % Monocytes % (Manual) 11 Eosinophils % Eosinophils % (Manual) 1 Basophils % Basophils % (Manual) 2 Promyelocytes % (Manual) 4 H Nucleated Red Blood Cells % 0.0 Immature Granulocytes # 0.150 H Neutrophils # Neutrophils # (Manual) 4.1 Band Neutrophils # 0.3 Lymphocytes (Manual) 1.9 Lymphocytes # Reactive Lymphocytes # 0.3 H Monocytes # Monocytes # (Manual) 0.8 Eosinophils # Basophils # Basophils # (Manual) 0.1 H Promyelocytes # 0.3 H Nucleated Red Blood Cells # Platelet Estimate NORMAL Giant Platelets 2 H Polychromasia 1+ Sodium Level 138 Potassium Level 4.5 Chloride Level 104 Carbon Dioxide Level 24 Anion Gap 10 Blood Urea Nitrogen 7 Creatinine 0.52 L Est Glomerular Filtrat Rate mL/min > 60 Glucose Level 103 Calcium Level 9.2 Phosphorus Level 3.9 Magnesium Level 2.3 Medications Medication Current Medications IV Flush (NS 3 ml) 3 ml PER PROTOCOL IV ; Start 02/01/19 at 09:00 Ondansetron HCl (Zofran Inj) 4 mg Q6H PRN IV NAUSEA/VOMITING Last administered on 02/07/19at 09:10; Admin Dose 4 MG; Start 02/01/19 at 09:00 Vancomycin HCl (Vanco Iv Per Pharmacy) VANCOMYCIN PER PHARMACY PER PROTOCOL XX ; Start 02/02/19 at 10:30 Hydromorphone HCl (Dilaudid) 1 mg Q2 PRN IV SEVERE PAIN LEVEL 7-10 Last administered on 02/08/19at 12:37; Admin Dose 1 MG; Start 02/02/19 at 13:00 Lorazepam (Ativan) 0.5 mg Q6H PRN IV anxiety Last administered on 02/14/19at 05:33; Admin Dose 0.5 MG; Start 02/02/19 at 13:00 Meropenem/Sodium Chloride 50 ml @ 100 mls/hr Q8 IVPB Last administered on 02/14/19at 05:32; Admin Dose 100 MLS/HR; Start 02/03/19 at 15:00 Acetaminophen/ Hydrocodone Bitart ([place] (10/325)) 1 tab Q4H PRN PO SEVERE PAIN LEVEL 7-10 Last administered on 02/09/19at 20:04; Admin Dose 1 TAB; Start 02/04/19 at 11:30 Acetaminophen/ Hydrocodone Bitart ([place] (5/325)) 1 tab Q6H PRN PO MODERATE PAIN LEVEL 4-6 Last administered on 02/11/19 17:49; Admin Dose 1 TAB; Start at 11:30 Fluconazole/ Sodium Chloride 50 ml @ 50 mls/hr Q24H IVPB Last administered on 02/14/19 11:25; Admin Dose 50 MLS/HR; Start 02/07/19 at 12:00 Acetaminophen (Tylenol Tab) 1,000 mg Q6H PRN PO MILD PAIN(1-3)OR ELEVATED TEMP Last administered on 02/09/19 14:06; Admin Dose 1,000 MG; Start 02/08/19 at 14:00 Famotidine (Pepcid) 20 mg BID PO Last administered on 02/14/19at 09:30; Admin D ose 20 MG; Start 02/09/19 at 21:00 Vancomycin HCl 1.25 gm/Sodium Chloride 250 ml @ 83.333 mls/ hr Q8H IVPB Last administered on 02/14/19 04:25; Admin Dose 83.333 MLS/HR; Start 02/14/19 at 04:00 Miscellaneous Information (*Rx Drug Level Order Reminder*) VANCOMYCIN TROUGH AT 1100 1100 ONCE XX ; Start 02/15/19 at 11:00; Stop 02/15/19 at 11:01 KELSEY DAS NP February 14, 2019 11:38
--- NOTE | 2019-02-14 12:34 | PN ---
Date/Time of Note Date/Time of Note DATE: 02/14/19 TIME: 12:33 Objective Vitals Vital Signs Date Temp Pulse Resp B/P (MAP) Pulse Ox O2 O2 Flow FiO2 Time Delivery Rate 02/14/19 98.0 78 18 121/68 99 Room Air 07:48 (85) Intake and Output 02/13/19 02/13/19 02/14/19 1515:00 23:00 07:00 IntakeIntake Total 890 ml 1200 ml 300 ml BalanceBalance 890 ml 1200 ml 300 ml Results Result Diagram: 02/14/19 0501 02/14/19 0501 Medications Medications Current Medications IV Flush (NS 3 ml) 3 ml PER PROTOCOL IV ; Start 02/01/19 at 09:00 Ondansetron HCl (Zofran Inj) 4 mg Q6H PRN IV NAUSEA/VOMITING Last administered on 02/07/19at 09:10; Admin Dose 4 MG; Start 02/01/19 at 09:00 Vancomycin HCl (Vanco Iv Per Pharmacy) VANCOMYCIN PER PHARMACY PER PROTOCOL XX ; Start 02/02/19 at 10:30 Hydromorphone HCl (Dilaudid) 1 mg Q2 PRN IV SEVERE PAIN LEVEL 7-10 Last administered on 02/08/19at 12:37; Admin Dose 1 MG; Start 02/02/19 at 13:00 Lorazepam (Ativan) 0.5 mg Q6H PRN IV anxiety Last administered on 02/14/19at 05:33; Admin Dose 0.5 MG; Start 02/02/19 at 13:00 Meropenem/Sodium Chloride 50 ml @ 100 mls/hr Q8 IVPB Last administered on 02/14/19at 05:32; Admin Dose 100 MLS/HR; Start 02/03/19 at 15:00 Acetaminophen/ Hydrocodone Bitart ([place] (10/325)) 1 tab Q4H PRN PO SEVERE PAIN LEVEL 7-10 Last administered on 02/09/19at 20:04; Admin Dose 1 TAB; Start 02/04/19 at 11:30 Acetaminophen/ Hydrocodone Bitart ([place] (5/325)) 1 tab Q6H PRN PO MODERATE PAIN LEVEL 4-6 Last administered on 02/11/19at 17:49; Admin Dose 1 TAB; Start 02/04/19 at 11:30 Fluconazole/ Sodium Chloride 50 ml @ 50 mls/hr Q24H IVPB Last administered on 02/14/19at 11:25; Admin Dose 50 MLS/HR; Start 02/07/19 at 12:00 Acetaminophen (Tylenol Tab) 1,000 mg Q6H PRN PO MILD PAIN(1-3)OR ELEVATED TEMP Last administered on 02/09/19at 14:06; Admin Dose 1,000 MG; Start 02/08/19 at 14:00 Famotidine (Pepcid) 20 mg BID PO Last administered on 02/14/19at 09:30; Admin Dose 20 MG; Start 02/09/19 at 21:00 Vancomycin HCl 1.25 gm/Sodium Chloride 250 ml @ 83.333 mls/ hr Q8H IVPB Last administered on 02/14/19at 04:25; Admin Dose 83.333 MLS/HR; Start 02/14/19 at 04:00 Miscellaneous Information (*Rx Drug Level Order Reminder*) VANCOMYCIN TROUGH AT 1100 1100 ONCE XX ; Start 02/15/19 at 11:00; Stop 02/15/19 at 11:01 VTE Prophylaxis Risk score (from Ns)>0 risk: 0 SCD applied (from [facility] [place]): No SCD contraindication: other Lines/Catheters IV Catheter Type: Keyes in Place: No Assessment/Plan Hospital Course Subjective No abdominal pain, doing well Objective Physical exam General: Patient is laying in bed and answers questions appropriately Mentation: Patient is alert and oriented 4, Head: Normocephalic atraumatic Eyes: EOMI, pupils reactive to light Neck: Supple, nontender, midline Respiratory: Clear to auscultation bilaterally Cardiovascular: regular rate, no obvious murmurs Gastrointestinal: non-tender to palpation, bowel sounds heard. Neurological: Moves all extremities spontaneously Skin: No new skin lesions Assessment/Plan 1. Acute diverticulitis with phlegmon- stable - repeat CT scan 02/08 shows decreased size of abscess and not able to be drained , repeat ct done 02/12/19, awaiting recs from surgeon - Gen surgery on board and appreciated recommendations. - WBC normalized and remains afebrile - ID on board and appreciate recommendations. Per surgery, will need prolonged IV antibiotic therapy 2. Abdominal pain- stable - Secondary to above - pain control, has not needed pain meds for a few days 3. Anxiety - Ativan PRN 4. Disposition - Continue antibiotics per ID recommendations. arranging abx through CM, picc line to be placed today. Currently plan with general surgery and infectious disease is for patient to complete at least 10 more days of IV antibiotics, ertapenem with vancomycin at home along with oral fluconazole. After 10 days patient is to return to the ED for repeat CT scan and if there are any signs of residual abscess patient will need to be readmitted for additional IV therapy as well as surgical consult. KAYLEN MURO February 14, 2019 12:34
--- NOTE | 2019-02-14 14:45 | PN ---
Date/Time of Note Date/Time of Note DATE: 02/14/19 TIME: 14:37 Assessment/Plan Lines/Catheters IV Catheter Type (from [facility]): Keyes in Place (from [facility]): No Assessment/Plan Chief Complaint/Hosp Course 1. Recurrent perforated diverticulitis with abscess. HD stable: Repeat ct: acute diverticulitis of the sigmoid colon with slight progression of the perisigmoid inflammation and induration. Increase in size of perisigmoid fluid collection currently measures 6.2 cm in largest diameter. This was measured 3.8 cm in prior study. Dr. Beauchamp spoke with IR and they think it is accessible but currently phlegmonous and therefore wont drain much. He recommended repeat CT and IR drain to follow> reviewed CT with radiologist, abscess reportedly smaller and no good window to drain abs cess; CT showed improvement -prolonged abx tx per ID> PICC line pending -recommend outpt f/u for elective lap partial colectomy -eventual re-imaging > repeat ct noted> okay for discharge from surgical standpoint. Will need antibiotics per ID. Will need follow-up with GI for eventual colonoscopy and then with our service for eventual colectomy. This was discussed with patient. 2. Leukocytosis: resolved -Antibiotics/antifungal per ID -As above -Trend 3. Abdominal pain: Improved -As above 4. BMI 38 -encourage nutrition and exercise optimization Thank you. Patient seen and examined in collaboration with Dr. Chung Beauchamp. Subjective 24 Hr Interval Summary No abdominal pain. No fevers, chills, sob, congested cough, cp, palpitations, greene, dizziness, n/v/d/dysuria. Exam/Review of Systems Vital Signs Vitals Vital Signs Date Temp Pulse Resp B/P (MAP) Pulse Ox O2 O2 Flow FiO2 Time Delivery Rate 02/14/19 98.0 78 18 121/68 99 Room Air 07:48 (85) Intake and Output 02/13/19 02/13/19 02/14/19 1515:00 23:00 07:00 IntakeIntake Total 890 ml 1200 ml 300 ml BalanceBalance 890 ml 1200 ml 300 ml Exam Free Text/Dictation Constitutional: alert, oriented Psych: nl mood/affect; No anxiety Head: normocephalic, atraumatic Eyes: nl conjunctiva, EOMI, nl lids, nl sclera ENMT: nl external ears & nose, nl lips & teeth, nl nasal mucosa & septum, mucosa pink and moist Neck: supple, non-tender Respiratory: normal air movement; No congested cough Cardiovascular: regular rate and rhythm, nl pulses Gastrointestinal: soft, NT, obese Genitourinary - Male: nl scrotum Musculoskeletal: nl extremities to inspection, nl gait and stance Extremities: normal pulses Neurological: nl mental status, nl speech, nl strength Results Result Diagram: 02/14/19 05002/14/19 050 FOREST LOWE NP February 14, 2019 14:45
[2019-02-14] MEDS: ERTAPENEM SODIUM 1 GM in SOD CHLORIDE 0.9% 100 ML IVPB SCH (16:12)
[2019-02-14 16:27] VITALS: BP 115/67; PULSE 90; RESP 17
[2019-02-14 20:27] VITALS: BP 122/77; PULSE 89; RESP 16
[2019-02-14] MEDS: HYDROCODONE/APAP (10/325) TAB PO PRN (21:43)
[2019-02-15] MEDS: LORAZEPAM 2 MG INJ IV PRN ×4 (00:10→22:25)
[2019-02-15 01:47] VITALS: BP 112/57; PULSE 84; RESP 18
[2019-02-15] MEDS: VANCOMYCIN HCL 1.25 GM in SOD CHLORIDE 0.9% 250 ML IVPB SCH ×3 (04:26→20:27)
[2019-02-15 07:51] VITALS: BP 118/68; PULSE 77; RESP 16
[2019-02-15] MEDS: FLUCONAZOLE 100 MG TAB PO SCH (09:13)
[2019-02-15] MEDS: FAMOTIDINE 20 MG TAB PO SCH ×2 (09:13→20:27)
--- NOTE | 2019-02-15 11:48 | CONS ---
Assessment/Plan Assessment/Plan Hospital Course (Demo Recall) ID PROGRESS NOTE CURRENT ABX: DAY #=> Vanco IV + Ertapenem + DIflucan PO s/p Merrem 02/15/19 0536 02/15/19 0536 24H INTERVAL SUMMARY * Afebrile, VSS, NAD, lethargic, napping with TV on, arousable -- feeling "OK" pain improved IMAGING * 02/14/19 CXR: IMPRESSION: No evidence for active cardiopulmonary disease. Left PICC line in place, in the superior vena cava. MICRO/OTHER * 02/01/19 BCX (-); Urine Cx (-); (-)MRSA Nares PHYSICAL EXAMINATION: GENERAL: VSS, NAD, lethargic HEENT: AT, NC, NECK: WNL CHEST: Equal chest rise bilaterally without dyspnea on observation ABD: Soft, (+)tender EXTREMITIES: Warm, dry SKIN: No rash, no diaphoresis ID ASSESSMENT 39 YO M admit with: 1. Systemic inflammatory response syndrome 2 to #2 => Resolving w/WBC normalized, no fevers 2. Acute diverticulitis with phlegmon/abscess * Recurrent perforated diverticulitis with abscess. HD stable: Repeat ct: acute diverticulitis of the sigmoid colon with slight progression of the perisigmoid inflammation and induration. 3. Acute ABD pain 2nd/ # 2 = IMPROVED 4. Obesity 5. Anxiety related to acute medical crisis (-)MRSA Nares ABX ALLERGIES: NKDA INVASIVES: PICC CURRENT ABX: DAY # => Vanco IV + Ertapenem + DIflucan PO ID RECOMMENDATIONS/PLAN: 1. MAY DC on current ABX for 9 more days when cleared by primary -- PICC line has been placed 2. Follow surgical recommendations and f/u with OP surgery w/repeat CT in one week . Consultation Date/Type/Reason Admit Date/Time February 01, 2019 at 08:04 Initial Consult Date 02/01/19 Date/Time of Note DATE: 02/15/19 TIME: 11:47 Exam/Review of Systems Exam Vitals Vital Signs Date Temp Pulse Resp B/P (MAP) Pulse Ox O2 O2 Flow FiO2 Time Delivery Rate 02/15/19 97.1 77 16 118/68 99 07:51 (85) 02/14/19 Room Air 16:27 Intake and Output 502/14/19 02/15/19 1515:00 23:00 07:00 IntakeIntake Total 820 ml 880 ml 500 ml BalanceBalance 820 ml 880 ml 500 ml Results Result Diagram: 02/15/19 0536 02/15/19 0536 Results 24hrs Laboratory Tests Test 02/15/19 05:36 White Blood Count 7.5 Red Blood Count 4.44 L Hemoglobin 13.7 L Hematocrit 40.7 L Mean Corpuscular Volume 91.7 Mean Corpuscular Hemoglobin 30.9 Mean Corpuscular Hemoglobin Concent 33.7 Red Cell Distribution Width 12.8 Platelet Count 349 Mean Platelet Volume 10.6 H Immature Granulocytes % 1.200 H Neutrophils % 61.5 Lymphocytes % 26.7 Monocytes % 7.8 Eosinophils % 1.9 Basophils % 0.9 Nucleated Red Blood Cells % 0.0 Immature Granulocytes # 0.090 H Neutrophils # 4.6 Lymphocytes # 2.0 Monocytes # 0.6 Eosinophils # 0.1 Basophils # 0.1 Nucleated Red Blood Cells # 0.0 Sodium Level 140 Potassium Level 3.7 Chloride Level 108 Carbon Dioxide Level 21 Anion Gap 11 Blood Urea Nitrogen 9 Creatinine 0.43 L Est Glomerular Filtrat Rate mL/min > 60 Glucose Level 115 Calcium Level 7.9 L Phosphorus Level 3.1 Magnesium Level 1.8 Medications Medication Current Medications IV Flush (NS 3 ml) 3 ml PER PROTOCOL IV ; Start 02/01/19 at 09:00 Ondansetron HCl (Zofran Inj) 4 mg Q6H PRN IV NAUSEA/VOMITING Last administered on 02/07/19at 09:10; Admin Dose 4 MG; Start 02/01/19 at 09:00 Vancomycin HCl (Vanco Iv Per Pharmacy) VANCOMYCIN PER PHARMACY PER PROTOCOL XX ; Start 02/02/19 at 10:30 Hydromorphone HCl (Dilaudid) 1 mg Q2 PRN IV SEVERE PAIN LEVEL 7-10 Last administered on 02/08/19at 12:37; Admin Dose 1 MG; Start 02/02/19 at 13:00 Lorazepam (Ativan) 0.5 mg Q6H PRN IV anxiety Last administered on 02/15/19at 09:21; Admin Dose 0.5 MG; Start 02/02/19 at 13:00 Acetaminophen/ Hydrocodone Bitart ([place] (10/325)) 1 tab Q4H PRN PO SEVERE PAIN LEVEL 7-10 Last administered on 02/14/19 21:43; Admin Dose 1 TAB; Start 02/04/19 at 11:30 Acetaminophen/ Hydrocodone Bitart ([place] (5/325)) 1 tab Q6H PRN PO MODERATE PAIN LEVEL 4-6 Last administered on 02/11/19 17:49; Admin Dose 1 TAB; Start 02/04/19 at 11:30 Acetaminophen (Tylenol Tab) 1,000 mg Q6H PRN PO MILD PAIN(1-3)OR ELEVATED TEMP Last administered on 02/09/19 14:06; Admin Dose 1,000 MG; Start 02/08/19 at 14:00 Famotidine (Pepcid) 20 mg BID PO Last administered on 02/15/19 09:13; Admin Dose 20 MG; Start 02/09/19 at 21:00 Vancomycin HCl 1.25 gm/Sodium Chloride 250 ml @ 83.333 mls/ hr Q8H IVPB Last administered on 02/15/19 04:26; Admin Dose 83.333 MLS/HR; Start 02/14/19 at 04:00 Ertapenem 1 gm/ Sodium Chloride 100 ml @ 200 mls/hr Q24H IVPB Last administered on 02/14/19 16:12; Admin Dose 200 MLS/HR; Start 02/14/19 at 14:00 Fluconazole (Diflucan) 100 mg DAILY PO Last administered on 02/15/19 09:13; Admin Dose 100 MG; Start 02/15/19 at 09:00 IV Flush (NS 10 ml) 10 ml PRN PRN IV IV PROTOCOL; Start 02/14/19 at 19:00 MERCY AGUIRRE NP February 15, 2019 11:48
[2019-02-15 14:00] VITALS: BP 122/65; PULSE 93; RESP 16
--- NOTE | 2019-02-15 16:25 | PN ---
Date/Time of Note Date/Time of Note DATE: 02/15/19 TIME: 16:24 Assessment/Plan VTE Prophylaxis Risk score (from Ns)>0 risk: 0 SCD applied (from Ns): No SCD contraindicated: other Pharmacological prophylaxis: NA/contraindicated Pharm contraindication: low risk/ambulating Lines/Catheters [facility] PICC Line Central line still needed: Yes Urinary Cath still in place: No Assessment/Plan Hospital Course SUBJECTIVE: Denies any abdominal pain. OBJECTIVE: Physical Exam General: Obese, 39 year-old male lying in bed in no apparent distress. HEENT: Normocephalic, atraumatic. Eyes: Anicteric sclerae, conjunctivae clear. ENT: Nasal septum midline, oral mucosa moist. Neck supple, no JVD noticed. Respiratory: Bilaterally clear breath sounds. No use of accessory muscles of respiration. No adventitious breath sounds. Cardiovascular: S1, S2 heard. Regular rate and rhythm. Abdomen: Soft, nontender, and nondistended. Bowel sounds positive in all 4 quadrants. Genitourinary: Deferred. Extremities: No cyanosis, no clubbing, no edema. Peripheral pulses palpable. Neurologic: Cranial nerves II through XII grossly intact. The patient is awake, alert, and oriented. Skin: Normal skin turgor. No skin rashes. Labs & Vitals per chart ASSESSMENT & PLAN 39-year-old male with comorbidities including obesity and prior history of diverticulitis who came to the emergency room with chief complaint of abdominal pain with CT scan showing acute diverticulitis involving the mid to proximal sigmoid colon with a 3.8 x 1.3 cm abscess. [place] [facility] [place] [facility] [place] [facility] and evaluation. 1. Recurrent perforated diverticulitis with abscess. -No safe window for IR drainage. -Being followed by general surgery. -Conservative management with IV antibiotics. 2. Obesity. -BMI 38 kg/m. -Weight reduction advised. 3. Fluids, electrolytes, and nutrition. -Regular diet. 4. DVT prophylaxis. -Bilateral SCDs. 5. Plan. -Continue antimicrobials as per ID. -Status post PICC line insertion. -Case management order has been put in for arrangement of IV antimicrobial therapy as outpatient. The patient was seen in collaboration with Dr. Randle. Result Diagram: 02/15/19 0536 02/15/19535 Results 24hrs Laboratory Tests Test 02/15/19 05:36 02/15/19 11:10 White Blood Count 7.5 Red Blood Count 4.44 L Hemoglobin 13.7 L Hematocrit 40.7 L Mean Corpuscular Volume 91.7 Mean Corpuscular Hemoglobin 30.9 Mean Corpuscular Hemoglobin Concent 33.7 Red Cell Distribution Width 12.8 Platelet Count 349 Mean Platelet Volume 10.6 H Immature Granulocytes % 1.200 H Neutrophils % 61.5 Lymphocytes % 26.7 Monocytes % 7.8 Eosinophils % 1.9 Basophils % 0.9 Nucleated Red Blood Cells % 0.0 Immature Granulocytes # 0.090 H Neutrophils # 4.6 Lymphocytes # 2.0 Monocytes # 0.6 Eosinophils # 0.1 Basophils # 0.1 Nucleated Red Blood Cells # 0.0 Sodium Level 140 Potassium Level 3.7 Chloride Level 108 Carbon Dioxide Level 21 Anion Gap 11 Blood Urea Nitrogen 9 Creatinine 0.43 L Est Glomerular Filtrat Rate mL/min > 60 Glucose Level 115 Calcium Level 7.9 L Phosphorus Level 3.1 Magnesium Level 1.8 Vancomycin Level Trough 14.3 Exam/Review of Systems Exam Vitals Vital Signs Date Temp Pulse Resp B/P (MAP) Pulse Ox O2 O2 Flow FiO2 Time Delivery Rate 02/15/19 98.6 93 16 122/65 98 14:00 (84) 02/14/19 Room Air 16:27 Intake and Output 02/14/19 02/14/19 02/15/19 1515:00 23:00 07:00 IntakeIntake Total 820 ml 880 ml 500 ml BalanceBalance 820 ml 880 ml 500 ml Results Results 24hrs Laboratory Tests Test 02/15/19 05:36 02/15/19 11:10 White Blood Count 7.5 Red Blood Count 4.44 L Hemoglobin 13.7 L Hematocrit 40.7 L Mean Corpuscular Volume 91.7 Mean Corpuscular Hemoglobin 30.9 Mean Corpuscular Hemoglobin Concent 33.7 Red Cell Distribution Width 12.8 Platelet Count 349 Mean Platelet Volume 10.6 H Immature Granulocytes % 1.200 H Neutrophils % 61.5 Lymphocytes % 26.7 Monocytes % 7.8 Eosinophils % 1.9 Basophils % 0.9 Nucleated Red Blood Cells % 0.0 Immature Granulocytes # 0.090 H Neutrophils # 4.6 Lymphocytes # 2.0 Monocytes # 0.6 Eosinophils # 0.1 Basophils # 0.1 Nucleated Red Blood Cells # 0.0 Sodium Level 140 Potassium Level 3.7 Chloride Level 108 Carbon Dioxide Level 21 Anion Gap 11 Blood Urea Nitrogen 9 Creatinine 0.43 L Est Glomerular Filtrat Rate mL/min > 60 Glucose Level 115 Calcium Level 7.9 L Phosphorus Level 3.1 Magnesium Level 1.8 Vancomycin Level Trough 14.3 Medications Medication Current Medications IV Flush (NS 3 ml) 3 ml PER PROTOCOL IV ; Start 02/01/19 at 09:00 Ondansetron HCl (Zofran Inj) 4 mg Q6H PRN IV NAUSEA/VOMITING Last administered on 02/07/19 09:10; Admin Dose 4 MG; Start 02/01/19 at 09:00 Vancomycin HCl (Vanco Iv Per Pharmacy) VANCOMYCIN PER PHARMACY PER PROTOCOL XX ; Start 02/02/19 at 10:30 Hydromorphone HCl (Dilaudid) 1 mg Q2 PRN IV SEVERE PAIN LEVEL 7-10 Last administered on 02/08/19 12:37; Admin Dose 1 MG; Start 02/02/19 at 13:00 Lorazepam (Ativan) 0.5 mg Q6H PRN IV anxiety Last administered on 02/15/19 15:51; Admin Dose 0.5 MG; Start 02/02/19 at 13:00 Acetaminophen/ Hydrocodone Bitart ([place] (10/325)) 1 tab Q4H PRN PO SEVERE PAIN LEVEL 7-10 Last administered on 02/14/19 21:43; Admin Dose 1 TAB; Start 02/04/19 at 11:30 Acetaminophen/ Hydrocodone Bitart ([place] (5/325)) 1 tab Q6H PRN PO MODERATE PAIN LEVEL 4-6 Last administered on 02/11/19 17:49; Admin Dose 1 TAB; Start 02/04/19 at 11:30 Acetaminophen (Tylenol Tab) 1,000 mg Q6H PRN PO MILD PAIN(1-3)OR ELEVATED TEMP Last administered on 02/09/19 14:06; Admin Dose 1,000 MG; Start 02/08/19 at 14:00 Famotidine (Pepcid) 20 mg BID PO Last administered on 02/15/19 09:13; Admin Dose 20 MG; Start 02/09/19 at 21:00 Vancomycin HCl 1.25 gm/Sodium Chloride 250 ml @ 83.333 mls/ hr Q8H IVPB Last administered on 02/15/19at 12:29; Admin Dose 83.333 MLS/HR; Start 02/14/19 at 04:00 Ertapenem 1 gm/ Sodium Chloride 100 ml @ 200 mls/hr Q24H IVPB Last administered on 02/14/19at 16:12; Admin Dose 200 MLS/HR; Start 02/14/19 at 14:00 Fluconazole (Diflucan) 100 mg DAILY PO Last administered on 02/15/19at 09:13; Admin Dose 100 MG; Start 02/15/19 at 09:00 IV Flush (NS 10 ml) 10 ml PRN PRN IV IV PROTOCOL; Start 02/14/19 at 19:00 ODILON LOZANO NP February 15, 2019 16:25
[2019-02-15] MEDS: ERTAPENEM SODIUM 1 GM in SOD CHLORIDE 0.9% 100 ML IVPB SCH (16:26)
[2019-02-15 19:30] VITALS: BP 110/72; PULSE 84; RESP 18
[2019-02-16 01:54] VITALS: BP 115/59; PULSE 84; RESP 18
[2019-02-16] MEDS: VANCOMYCIN HCL 1.25 GM in SOD CHLORIDE 0.9% 250 ML IVPB SCH ×3 (04:06→19:55)
[2019-02-16] MEDS: LORAZEPAM 2 MG INJ IV PRN ×3 (05:03→23:27)
[2019-02-16 07:30] VITALS: BP 118/74; PULSE 70; RESP 18
--- NOTE | 2019-02-16 07:36 | PN ---
Date/Time of Note Date/Time of Note DATE: 02/16/19 TIME: 07:35 Assessment/Plan VTE Prophylaxis Risk score (from Ns)>0 risk: 3 SCD applied (from Ns): No SCD contraindicated: other Pharmacological prophylaxis: NA/contraindicated Pharm contraindication: low risk/ambulating Lines/Catheters [facility] ([facility] PICC Line Central line still needed: Yes Urinary Cath still in place: No Assessment/Plan Hospital Course SUBJECTIVE: Denies any abdominal pain. OBJECTIVE: Physical Exam General: Obese, 39 year-old male lying in bed in no apparent distress. HEENT: Normocephalic, atraumatic. Eyes: Anicteric sclerae, conjunctivae clear. ENT: Nasal septum midline, oral mucosa moist. Neck supple, no JVD noticed. Respiratory: Bilaterally clear breath sounds. No use of accessory muscles of respiration. No adventitious breath sounds. Cardiovascular: S1, S2 heard. Regular rate and rhythm. Abdomen: Soft, nontender, and nondistended. Bowel sounds positive in all 4 quadrants. Genitourinary: Deferred. Extremities: No cyanosis, no clubbing, no edema. Peripheral pulses palpable. Neurologic: Cranial nerves II through XII grossly intact. The patient is awake, alert, and oriented. Skin: Normal skin turgor. No skin rashes. Labs & Vitals per chart ASSESSMENT & PLAN 39-year-old male with comorbidities including obesity and prior history of diverticulitis who came to the emergency room with chief complaint of abdominal pain with CT scan showing acute diverticulitis involving the mid to proximal sigmoid colon with a 3.8 x 1.3 cm abscess. The patient was admitted to [facility] setting for further treatment and evaluation. 1. Recurrent perforated diverticulitis with abscess. -No safe window for IR drainage. -Being followed by general surgery. -Conservative management with IV antibiotics. 2. Obesity. -BMI 38 kg/m. -Weight reduction advised. 3. Dyslipidemia. -Low cholesterol diet advised. 4. Fluids, electrolytes, and nutrition. -Regular diet. 5. DVT prophylaxis. -Bilateral SCDs. 6. Plan. -Continue antimicrobials as per ID. -Status post PICC line insertion. -Case management order has been put in for arrangement of IV antimicrobial therapy as outpatient. The patient was seen in collaboration with Dr. Randle. Result Diagram: 02/16/19 0451 02/16/19 0451 Results 24hrs Laboratory Tests Test 02/15/19 11:10 02/16/19 04:51 Vancomycin Level Trough 14.3 White Blood Count 7.9 Red Blood Count 4.46 L Hemoglobin 13.7 L Hematocrit 40.8 L Mean Corpuscular Volume 91.5 Mean Corpuscular Hemoglobin 30.7 Mean Corpuscular Hemoglobin Concent 33.6 Red Cell Distribution Width 12.5 Platelet Count 342 Mean Platelet Volume 10.0 Immature Granulocytes % 0.900 H Neutrophils % 61.6 Lymphocytes % 26.0 Monocytes % 8.5 Eosinophils % 2.0 Basophils % 1.0 Nucleated Red Blood Cells % 0.0 Immature Granulocytes # 0.070 H Neutrophils # 4.9 Lymphocytes # 2.1 Monocytes # 0.7 Eosinophils # 0.2 Basophils # 0.1 Nucleated Red Blood Cells # 0.0 Sodium Level 138 Potassium Level 4.2 Chloride Level 104 Carbon Dioxide Level 26 Anion Gap 8 Blood Urea Nitrogen 8 Creatinine 0.54 L Est Glomerular Filtrat Rate mL/min > 60 Glucose Level 106 Calcium Level 9.2 Exam/Review of Systems Exam Vitals Vital Signs Date Temp Pulse Resp B/P (MAP) Pulse Ox O2 O2 Flow FiO2 Time Delivery Rate 02/16/19 98.1 70 18 118/74 100 07:30 (89) 02/14/19 Room Air 16:27 Intake and Output 02/15/19 02/15/19 02/16/19 1515:00 23:00 07:00 IntakeIntake Total 920 ml 570 ml 500 ml BalanceBalance 920 ml 570 ml 500 ml Results Results 24hrs Laboratory Tests Test 02/15/19 11:10 02/16/19 04:51 Vancomycin Level Trough 14.3 White Blood Count 7.9 Red Blood Count 4.46 L Hemoglobin 13.7 L Hematocrit 40.8 L Mean Corpuscular Volume 91.5 Mean Corpuscular Hemoglobin 30.7 Mean Corpuscular Hemoglobin Concent 33.6 Red Cell Distribution Width 12.5 Platelet Count 342 Mean Platelet Volume 10.0 Immature Granulocytes % 0.900 H Neutrophils % 61.6 Lymphocytes % 26.0 Monocytes % 8.5 Eosinophils % 2.0 Basophils % 1.0 Nucleated Red Blood Cells % 0.0 Immature Granulocytes # 0.070 H Neutrophils # 4.9 Lymphocytes # 2.1 Monocytes # 0.7 Eosinophils # 0.2 Basophils # 0.1 Nucleated Red Blood Cells # 0.0 Sodium Level 138 Potassium Level 4.2 Chloride Level 104 Carbon Dioxide Level 26 Anion Gap 8 Blood Urea Nitrogen 8 Creatinine 0.54 L Est Glomerular Filtrat Rate mL/min > 60 Glucose Level 106 Calcium Level 9.2 Medications Medication Current Medications IV Flush (NS 3 ml) 3 ml PER PROTOCOL IV ; Start 02/01/19 at 09:00 Ondansetron HCl (Zofran Inj) 4 mg Q6H PRN IV NAUSEA/VOMITING Last administered on 02/07/19 09:10; Admin Dose 4 MG; Start 02/01/19 at 09:00 Vancomycin HCl (Vanco Iv Per Pharmacy) VANCOMYCIN PER PHARMACY PER PROTOCOL XX ; Start 02/02/19 at 10:30 Hydromorphone HCl (Dilaudid) 1 mg Q2 PRN IV SEVERE PAIN LEVEL 7-10 Last administered on 02/08/19 12:37; Admin Dose 1 MG; Start 02/02/19 at 13:00 Lorazepam (Ativan) 0.5 mg Q6H PRN IV anxiety Last administered on 02/16/19 05:03; Admin Dose 0.5 MG; Start 02/02/19 at 13:00 Acetaminophen/ Hydrocodone Bitart ([place] (10/325)) 1 tab Q4H PRN PO SEVERE PAIN LEVEL 7-10 Last administered on 02/14/19 21:43; Admin Dose 1 TAB; Start 02/04/19 at 11:30 Acetaminophen/ Hydrocodone Bitart ([place] (5/325)) 1 tab Q6H PRN PO MODERATE PAIN LEVEL 4-6 Last administered on 02/11/19at 17:49; Admin Dose 1 TAB; Start 02/04/19 at 11:30 Acetaminophen (Tylenol Tab) 1,000 mg Q6H PRN PO MILD PAIN(1-3)OR ELEVATED TEMP Last administered on 02/09/19 14:06; Admin Dose 1,000 MG; Start 02/08/19 at 14:00 Famotidine (Pepcid) 20 mg BID PO Last administered on 02/15/19 20:27; Admin Dose 20 MG; Start 02/09/19 at 21:00 Vancomycin HCl 1.25 gm/Sodium Chloride 250 ml @ 83.333 mls/ hr Q8H IVPB Last administered on 02/16/19 04:06; Admin Dose 83.333 MLS/HR; Start 02/14/19 at 04 :00 Ertapenem 1 gm/ Sodium Chloride 100 ml @ 200 mls/hr Q24H IVPB Last administered on 02/15/19at 16:26; Admin Dose 200 MLS/HR; Start 02/14/19 at 14:00 Fluconazole (Diflucan) 100 mg DAILY PO Last administered on 02/15/19at 09:13; Admin Dose 100 MG; Start 02/15/19 at 09:00 IV Flush (NS 10 ml) 10 ml PRN PRN IV IV PROTOCOL; Start 02/14/19 at 19:00 ODILON LOZANO NP February 16, 2019 07:36
[2019-02-16] MEDS: FLUCONAZOLE 100 MG TAB PO SCH (08:53)
[2019-02-16] MEDS: FAMOTIDINE 20 MG TAB PO SCH ×2 (08:53→20:44)
[2019-02-16 13:52] VITALS: BP 118/67; PULSE 91; RESP 18
[2019-02-16] MEDS: ERTAPENEM SODIUM 1 GM in SOD CHLORIDE 0.9% 100 ML IVPB SCH (14:53)
--- NOTE | 2019-02-16 16:48 | CONS ---
Assessment/Plan Assessment/Plan Hospital Course (Demo Recall) ID PROGRESS NOTE CURRENT ABX: DAY #=> Vanco IV + Ertapenem + DIflucan PO s/p Merrem 5 24H INTERVAL SUMMARY * DC planning in process -- patient is stable, no fevers, no new issues, no new complaints IMAGING * 02/14/19 CXR: IMPRESSION: No evidence for active cardiopulmonary disease. Left PICC line in place, in the superior vena cava. MICRO/OTHER * 02/01/19 BCX (-); Urine Cx (-); (-)MRSA Nares PHYSICAL EXAMINATION: GENERAL: VSS, NAD, lethargic HEENT: AT, NC, NECK: WNL CHEST: Equal chest rise bilaterally without dyspnea on observation ABD: Soft, (+)tender EXTREMITIES: Warm, dry SKIN: No rash, no diaphoresis ID ASSESSMENT 39 YO M admit with: 1. Systemic inflammatory response syndrome 2 to #2 => Resolving w/WBC normalized, no fevers 2. Acute diverticulitis with phlegmon/abscess * Recurrent perforated diverticulitis with abscess. HD stable: Repeat ct: acute diverticulitis of the sigmoid colon with slight progression of the perisigmoid inflammation and induration. 3. Acute ABD pain 2nd/2 # 2 = IMPROVED 4. Obesity 5. Anxiety related to acute medical crisis (-)MRSA Nares ABX ALLERGIES: NKDA INVASIVES: PICC CURRENT ABX: DAY # => Vanco IV + Ertapenem + DIflucan PO ID RECOMMENDATIONS/PLAN: 1. MAY DC on current ABX for 8 more days when cleared by primary -- PICC line has been placed 2. Follow surgical recommendations and f/u with OP surgery w/repeat CT in one week . Consultation Date/Type/Reason Admit Date/Time February 01, 2019 at 08:04 Initial Consult Date 02/01/19 Date/Time of Note DATE: 02/16/19 TIME: 16:47 Exam/Review of Systems Exam Vitals Vital Signs Date Temp Pulse Resp B/P (MAP) Pulse Ox O2 O2 Flow FiO2 Time Delivery Rate 02/16/19 98.0 91 18 118/67 94 13:52 (84) 02/14/19 Room Air 16:27 Intake and Output 02/15/19 02/15/19 02/16/19 1515:00 23:00 07:00 IntakeIntake Total 920 ml 570 ml 980 ml BalanceBalance 920 ml 570 ml 980 ml Results Result Diagram: 02/16/19 0451 02/16/19 0451 Results 24hrs Laboratory Tests Test 02/16/19 04:51 White Blood Count 7.9 Red Blood Count 4.46 L Hemoglobin 13.7 L Hematocrit 40.8 L Mean Corpuscular Volume 91.5 Mean Corpuscular Hemoglobin 30.7 Mean Corpuscular Hemoglobin Concent 33.6 Red Cell Distribution Width 12.5 Platelet Count 342 Mean Platelet Volume 10.0 Immature Granulocytes % 0.900 H Neutrophils % 61.6 Lymphocytes % 26.0 Monocytes % 8.5 Eosinophils % 2.0 Basophils % 1.0 Nucleated Red Blood Cells % 0.0 Immature Granulocytes # 0.070 H Neutrophils # 4.9 Lymphocytes # 2.1 Monocytes # 0.7 Eosinophils # 0.2 Basophils # 0.1 Nucleated Red Blood Cells # 0.0 Sodium Level 138 Potassium Level 4.2 Chloride Level 104 Carbon Dioxide Level 26 Anion Gap 8 Blood Urea Nitrogen 8 Creatinine 0.54 L Est Glomerular Filtrat Rate mL/min > 60 Glucose Level 106 Calcium Level 9.2 Phosphorus Level 4.2 Magnesium Level 2.0 Triglycerides Level 298 H Cholesterol Level 120 LDL Cholesterol, Calculated 38 HDL Cholesterol 22 L Cholesterol/HDL Ratio 5.4 Medications Medication Current Medications IV Flush (NS 3 ml) 3 ml PER PROTOCOL IV ; Start 02/01/19 at 09:00 Ondansetron HCl (Zofran Inj) 4 mg Q6H PRN IV NAUSEA/VOMITING Last administered on 02/07/19at 09:10; Admin Dose 4 MG; Start 02/01/19 at 09:00 Vancomycin HCl (Vanco Iv Per Pharmacy) VANCOMYCIN PER PHARMACY PER PROTOCOL XX ; Start 02/02/19 at 10:30 Hydromorphone HCl (Dilaudid) 1 mg Q2 PRN IV SEVERE PAIN LEVEL 7-10 Last administered on 02/08/19at 12:37; Admin Dose 1 MG; Start 02/02/19 at 13:00 Lorazepam (Ativan) 0.5 mg Q6H PRN IV anxiety Last administered on 02/16/19at 12:08; Admin Dose 0.5 MG; Start 02/02/19 at 13:00 Acetaminophen/ Hydrocodone Bitart ([place] ()) 1 tab Q4H PRN PO SEVERE PAIN LEVEL 7-10 Last administered on 02/14/19 21:43; Admin Dose 1 TAB; Start 02/04/19 at 11:30 Acetaminophen/ Hydrocodone Bitart ([place] (5/325)) 1 tab Q6H PRN PO MODERATE PAIN LEVEL 4-6 Last administered on 02/11/19 17:49; Admin Dose 1 TAB; Start 02/04/19 at 11:30 Acetaminophen (Tylenol Tab) 1,000 mg Q6H PRN PO MILD PAIN(1-3)OR ELEVATED TEMP Last administered on 02/09/19 14:06; Admin Dose 1,000 MG; Start 02/08/19 at 14:00 Famotidine (Pepcid) 20 mg BID PO Last administered on 02/16/19 08:53; Admin Dose 20 MG; Start 02/09/19 at 21:00 Vancomycin HCl 1.25 gm/Sodium Chloride 250 ml @ 83.333 mls/ hr Q8H IVPB Last administered on 02/16/19 12:03; Admin Dose 83.333 MLS/HR; Start 02/14/19 at 04:00 Ertapenem 1 gm/ Sodium Chloride 100 ml @ 200 mls/hr Q24H IVPB Last administered on 02/16/19 14:53; Admin Dose 200 MLS/HR; Start 02/14/19 at 14:00 Fluconazole (Diflucan) 100 mg DAILY PO Last administered on 02/16/19 08:53; Admin Dose 100 MG; Start 02/15/19 at 09:00 IV Flush (NS 10 ml) 10 ml PRN PRN IV IV PROTOCOL; Start 02/14/19 at 19:00 MERCY AGUIRRE NP February 16, 2019 16:48
[2019-02-16 19:38] VITALS: BP 110/58; PULSE 80; RESP 18
[2019-02-17 01:56] VITALS: BP 106/64; PULSE 86; RESP 18
[2019-02-17] MEDS: VANCOMYCIN HCL 1.25 GM in SOD CHLORIDE 0.9% 250 ML IVPB SCH ×3 (04:00→20:10)
[2019-02-17] MEDS: LORAZEPAM 2 MG INJ IV PRN ×3 (06:47→21:40)
[2019-02-17 09:03] VITALS: BP 118/68; PULSE 84; RESP 16
[2019-02-17] MEDS: FLUCONAZOLE 100 MG TAB PO SCH (10:06)
[2019-02-17] MEDS: FAMOTIDINE 20 MG TAB PO SCH ×2 (10:06→20:10)
--- NOTE | 2019-02-17 14:41 | PN ---
Date/Time of Note Date/Time of Note DATE: 02/17/19 TIME: 14:40 Assessment/Plan VTE Prophylaxis Risk score (from Ns)>0 risk: 3 SCD applied (from Ns): No SCD contraindicated: low risk/ambulating Pharmacological prophylaxis: NA/contraindicated Pharm contraindication: low risk/ambulating Lines/Catheters IV Catheter Type (from [facility]): PICC Line Central line still needed: Yes Urinary Cath still in place: No Assessment/Plan Hospital Course SUBJECTIVE: Denies any abdominal pain. OBJECTIVE: Physical Exam General: Obese, 39 year-old male lying in bed in no apparent distress. HEENT: Normocephalic, atraumatic. Eyes: Anicteric sclerae, conjunctivae clear. ENT: Nasal septum midline, oral mucosa moist. Neck supple, no JVD noticed. Respiratory: Bilaterally clear breath sounds. No use of accessory muscles of respiration. No adventitious breath sounds. Cardiovascular: S1, S2 heard. Regular rate and rhythm. Abdomen: Soft, nontender, and nondistended. Bowel sounds positive in all 4 quadrants. Genitourinary: Deferred. Extremities: No cyanosis, no clubbing, no edema. Peripheral pulses palpable. Neurologic: Cranial nerves II through XII grossly intact. The patient is awake, alert, and oriented. Skin: Normal skin turgor. No skin rashes. Labs & Vitals per chart ASSESSMENT & PLAN 39-year-old male with comorbidities including obesity and prior history of diverticulitis who came to the emergency room with chief complaint of abdominal pain with CT scan showing acute diverticulitis involving the mid to proximal sigmoid colon with a 3.8 x 1.3 cm abscess. The patient was admitted to inpatient setting for further treatment and evaluation. 1. Recurrent perforated diverticulitis with abscess. -No safe window for IR drainage. -Being followed by general surgery. -Conservative management with IV antibiotics. 2. Obesity. -BMI 38 kg/m. -Weight reduction advised. 3. Dyslipidemia. -Low cholesterol diet advised. 4. Fluids, electrolytes, and nutrition. -Regular diet. 5. DVT prophylaxis. -Bilateral SCDs. 6. Plan. -Continue antimicrobials as per ID. -Status post PICC line insertion. -Case management order has been put in for arrangement of IV antimicrobial therapy as outpatient. The patient was seen in collaboration with Dr. Arana. Result Diagram: 02/16/19 0451 02/16/19 0451 Exam/Review of Systems Exam Vitals Vital Signs Date Temp Pulse Resp B/P (MAP) Pulse Ox O2 O2 Flow FiO2 Time Delivery Rate 02/17/19 97.7 84 16 118/68 97 09:03 (85) 02/14/19 Room Air 16:27 Intake and Output 02/16/19 02/16/19 02/17/19 1515:00 23:00 07:00 IntakeIntake Total 1320 ml 1080 ml 730 ml BalanceBalance 1320 ml 1080 ml 730 ml Medications Medication Current Medications IV Flush (NS 3 ml) 3 ml PER PROTOCOL IV ; Start 02/01/19 at 09:00 Ondansetron HCl (Zofran Inj) 4 mg Q6H PRN IV NAUSEA/VOMITING Last administered on 02/07/19at 09:10; Admin Dose 4 MG; Start 02/01/19 at 09:00 Vancomycin HCl (Vanco Iv Per Pharmacy) VANCOMYCIN PER PHARMACY PER PROTOCOL XX ; Start 02/02/19 at 10:30 Hydromorphone HCl (Dilaudid) 1 mg Q2 PRN IV SEVERE PAIN LEVEL 7-10 Last administered on 02/08/19 12:37; Admin Dose 1 MG; Start 02/02/19 at 13:00 Lorazepam (Ativan) 0.5 mg Q6H PRN IV anxiety Last administered on 02/17/19 06:47; Admin Dose 0.5 MG; Start 02/02/19 at 13:00 Acetaminophen/ Hydrocodone Bitart ([place] (10/325)) 1 tab Q4H PRN PO SEVERE PAIN LEVEL 7-10 Last administered on 02/14/19 21:43; Admin Dose 1 TAB; Start 01/22 01/10 at 11:30 Acetaminophen/ Hydrocodone Bitart ([place] (5/325)) 1 tab Q6H PRN PO MODERATE PAIN LEVEL 4-6 Last administered on 02/11/19at 17:49; Admin Dose 1 TAB; Start 02/04/19 at 11:30 Acetaminophen (Tylenol Tab) 1,000 mg Q6H PRN PO MILD PAIN(1-3)OR ELEVATED TEMP Last administered on 02/09/19at 14:06; Admin Dose 1,000 MG; Start 02/08/19 at 14:00 Famotidine (Pepcid) 20 mg BID PO Last administered on 02/17/19at 10:06; Admin Dose 20 MG; Start 02/09/19 at 21:00 Vancomycin HCl 1.25 gm/Sodium Chloride 250 ml @ 83.333 mls/ hr Q8H IVPB Last administered on 02/17/19at 11:34; Admin Dose 83.333 MLS/HR; Start 02/14/19 at 04:00 Ertapenem 1 gm/ Sodium Chloride 100 ml @ 200 mls/hr Q24H IVPB Last admini stered on 02/16/19at 14:53; Admin Dose 200 MLS/HR; Start 02/14/19 at 14:00 Fluconazole (Diflucan) 100 mg DAILY PO Last administered on 02/17/19at 10:06; Admin Dose 100 MG; Start 02/15/19 at 09:00 IV Flush (NS 10 ml) 10 ml PRN PRN IV IV PROTOCOL; Start 02/14/19 at 19:00 Miscellaneous Information (*Rx Drug Level Order Reminder*) VANCO TROUGH @ 1,100 1100 ONCE XX ; Start 02/18/19 at 11:00; Stop 02/18/19 at 11:01 ODILON LOZANO NP February 17, 2019 14:41
[2019-02-17 14:50] VITALS: BP 117/73; PULSE 90; RESP 16
--- NOTE | 2019-02-17 15:27 | CONS ---
Assessment/Plan Assessment/Plan Hospital Course (Demo Recall) ID PROGRESS NOTE CURRENT ABX: DAY #=> Vanco IV + Ertapenem + DIflucan PO s/p Merrem 24H INTERVAL SUMMARY * Clinically status quo --- DC planning in process -- patient is stable, no fevers, no new issues, no new complaints IMAGING * 02/14/19 CXR: IMPRESSION: No evidence for active cardiopulmonary disease. Left PICC line in place, in the superior vena cava. MICRO/OTHER * 02/01/19 BCX (-); Urine Cx (-); (-)MRSA Nares PHYSICAL EXAMINATION: GENERAL: VSS, NAD, lethargic HEENT: AT, NC, NECK: WNL CHEST: Equal chest rise bilaterally without dyspnea on observation ABD: Soft, (+)tender EXTREMITIES: Warm, dry SKIN: No rash, no diaphoresis ID ASSESSMENT 39 YO M admit with: 1. Systemic inflammatory response syndrome 2 to #2 => Resolving w/WBC normalized, no fevers 2. Acute diverticulitis with phlegmon/abscess * Recurrent perforated diverticulitis with abscess. HD stable: Repeat ct: acute diverticulitis of the sigmoid colon with slight progression of the perisigmoid inflammation and induration. 3. Acute ABD pain 2nd/ # 2 = IMPROVED 4. Obesity 5. Anxiety related to acute medical crisis (-)MRSA Nares ABX ALLERGIES: NKDA INVASIVES: PICC CURRENT ABX: DAY # => Vanco IV + Ertapenem + DIflucan PO ID RECOMMENDATIONS/PLAN: 1. MAY DC on current ABX for 7 more days when cleared by primary -- PICC line has been placed 2. Follow surgical recommendations and f/u with OP surgery w/repeat CT in one week . Consultation Date/Type/Reason Admit Date/Time February 01, 2019 at 08:04 Initial Consult Date 02/01/19 Date/Time of Note DATE: 02/17/19 TIME: 15:26 Exam/Review of Systems Exam Vitals Vital Signs Date Temp Pulse Resp B/P (MAP) Pulse Ox O2 O2 Flow FiO2 Time Delivery Rate 02/17/19 98.2 90 16 117/73 98 14:50 (88) 02/14/19 Room Air 16:27 Intake and Output 02/16/19 02/16/19 02/17/19 1515:00 23:00 07:00 IntakeIntake Total 1320 ml 1080 ml 730 ml BalanceBalance 1320 ml 1080 ml 730 ml Results Result Diagram: 02/16/19 0451 02/16/19 0451 Medications Medication Current Medications IV Flush (NS 3 ml) 3 ml PER PROTOCOL IV ; Start 02/01/19 at 09:00 Ondansetron HCl (Zofran Inj) 4 mg Q6H PRN IV NAUSEA/VOMITING Last administered on 02/07/19 09:10; Admin Dose 4 MG; Start 02/01/19 at 09:00 Vancomycin HCl (Vanco Iv Per Pharmacy) VANCOMYCIN PER PHARMACY PER PROTOCOL XX ; Start 02/02/19 at 10:30 Hydromorphone HCl (Dilaudid) 1 mg Q2 PRN IV SEVERE PAIN LEVEL 7-10 Last adm inistered on 02/08/19 12:37; Admin Dose 1 MG; Start 02/02/19 at 13:00 Lorazepam (Ativan) 0.5 mg Q6H PRN IV anxiety Last administered on 02/17/19 14:46; Admin Dose 0.5 MG; Start 02/02/19 at 13:00 Acetaminophen/ Hydrocodone Bitart ([place] (10/325)) 1 tab Q4H PRN PO SEVERE PAIN LEVEL 7-10 Last administered on 02/14/19 21:43; Admin Dose 1 TAB; Start 02/04/19 at 11:30 Acetaminophen/ Hydrocodone Bitart ([place] (5/325)) 1 tab Q6H PRN PO MODERATE PAIN LEVEL 4-6 Last administered on 02/11/19 17:49; Admin Dose 1 TAB; Start 02/04/19 at 11:30 Acetaminophen (Tylenol Tab) 1,000 mg Q6H PRN PO MILD PAIN(1-3)OR ELEVATED TEMP Last administered on 02/09/19 14:06; Admin Dose 1,000 MG; Start 02/08/19 at 1 4:00 Famotidine (Pepcid) 20 mg BID PO Last administered on 02/17/19 10:06; Admin Dose 20 MG; Start 02/09/19 at 21:00 Vancomycin HCl 1.25 gm/Sodium Chloride 250 ml @ 83.333 mls/ hr Q8H IVPB Last administered on 02/17/19 11:34; Admin Dose 83.333 MLS/HR; Start 02/14/19 at 04:00 Ertapenem 1 gm/ Sodium Chloride 100 ml @ 200 mls/hr Q24H IVPB Last administered on 02/16/19at 14:53; Admin Dose 200 MLS/HR; Start 02/14/19 at 14:00 Fluconazole (Diflucan) 100 mg DAILY PO Last administered on 02/17/19at 10:06; Admin Dose 100 MG; Start 02/15/19 at 09:00 IV Flush (NS 10 ml) 10 ml PRN PRN IV IV PROTOCOL; Start 02/14/19 at 19:00 Miscellaneous Information (*Rx Drug Level Order Reminder*) VANCO TROUGH @ 1,100 1100 ONCE XX ; Start 02/18/19 at 11:00; Stop 02/18/19 at 11:01 MERCY AGUIRRE NP February 17, 2019 15:27
[2019-02-17] MEDS: ERTAPENEM SODIUM 1 GM in SOD CHLORIDE 0.9% 100 ML IVPB SCH (17:27)
[2019-02-17 20:04] VITALS: BP 112/73; PULSE 66; RESP 16
[2019-02-18 02:33] VITALS: BP 114/68; PULSE 79; RESP 16
[2019-02-18] MEDS: VANCOMYCIN HCL 1.25 GM in SOD CHLORIDE 0.9% 250 ML IVPB SCH ×3 (03:44→20:34)
[2019-02-18] MEDS: LORAZEPAM 2 MG INJ IV PRN ×4 (03:50→23:17)
[2019-02-18 08:03] VITALS: BP 101/57; PULSE 73; RESP 20
[2019-02-18] MEDS: FAMOTIDINE 20 MG TAB PO SCH ×2 (09:45→20:34)
[2019-02-18] MEDS: FLUCONAZOLE 100 MG TAB PO SCH (09:45)
--- NOTE | 2019-02-18 10:57 | PN ---
Date/Time of Note Date/Time of Note DATE: 02/18/19 TIME: 10:52 Assessment/Plan Lines/Catheters IV Catheter Type (from [facility]): PICC Line Keyes in Place (from [facility]): No Assessment/Plan Chief Complaint/Hosp Course 1. Recurrent perforated diverticulitis with abscess. HD stable: Repeat ct: acute diverticulitis of the sigmoid colon with slight progression of the rosita sigmoid inflammation and induration. Increase in size of perisigmoid fluid collection currently measures 6.2 cm in largest diameter. This was measured 3.8 cm in prior study. Dr. Beauchamp spoke with IR and they think it is accessible but currently phlegmonous and therefore wont drain much. He recommended repeat CT and IR drain to follow> reviewed CT with radiologist, abscess reportedly smaller and no good window to drain abscess; CT showed improvement -prolonged abx tx per ID> s/p PICC line -recommend outpt f/u for elective lap partial colectomy -eventual re-imaging > repeat ct noted> okay for discharge from surgical standpoint. Will need antibiotics per ID. Will need follow-up with GI for eventual colonoscopy and then with our service for eventual colectomy. This was discussed with patient. 2. Leukocytosis: resolved -Antibiotics/antifungal per ID -As above -Trend 3. Abdominal pain: Improved -As above 4. BMI 38 -encourage nutrition and exercise optimization Thank you. Patient seen and examined in collaboration with Dr. Chung Beauchamp. Subjective 24 Hr Interval Summary Feels well. + bowel function. No fevers, chills, sob, congested cough, cp, palpitations, greene, dizziness, n/v/d/dysuria. Exam/Review of Systems Vital Signs Vitals Vital Signs Date Temp Pulse Resp B/P (MAP) Pulse Ox O2 O2 Flow FiO2 Time Delivery Rate 02/18/19 98.8 73 20 101/57 97 08:03 (72) 02/14/19 Room Air 16:27 Intake and Output 02/17/19 02/17/19 02/18/19 1515:00 23:00 07:00 IntakeIntake Total 1210 ml 1320 ml 250 ml BalanceBalance 1210 ml 1320 ml 250 ml Exam Free Text/Dictation Constitutional: alert, oriented Psych: nl mood/affect; No anxiety Head: normocephalic, atraumatic Eyes: nl conjunctiva, EOMI, nl lids, nl sclera ENMT: nl external ears & nose, nl lips & teeth, nl nasal mucosa & septum, mucosa pink and moist Neck: supple, non-tender Respiratory: normal air movement; No congested cough Cardiovascular: regular rate and rhythm, nl pulses Gastrointestinal: soft, NT, obese Genitourinary - Male: nl scrotum Musculoskeletal: nl extremities to inspection, nl gait and stance Extremities: normal pulses Neurological: nl mental status, nl speech, nl strength Results Result Diagram: 02/16/19 0451 02/16/19 0451 FOREST LOWE NP February 18, 2019 10:56
--- NOTE | 2019-02-18 13:20 | CONS ---
Assessment/Plan Assessment/Plan Hospital Course (Demo Recall) No acute changes overnight patient is alert feels good looks comfortable no fevers overnight Antimicrobials: Vanco, Invanz, Diflucan CT of the abdomen repeated yesterday revealed sigmoid diverticulitis with phlegmon, extraluminal gas bubbles and pericolic abscess which communicates with the lumen of the bowel. Mild improvement compared to the recent prior study Physical examination: Well-nourished well-developed middle-aged man who is alert in no distress. Head atraumatic normocephalic. Neck is supple chest rise symmetrical. Breath sounds clear. Heart: S1-S2. Abdomen soft bowel sounds present. Extremities without cyanosis Assessment: 1. Systemic inflammatory response syndrome 2 to #2 2. Acute diverticulitis with phlegmon/abscess Plan: Remains stable, pending discharge home on IV antibiotics, consider repeat CT in 7 days. Discussed with patient Consultation Date/Type/Reason Admit Date/Time February 01, 2019 at 08:04 Initial Consult Date 02/01/19 Type of Consult id Date/Time of Note DATE: 02/18/19 TIME: 13:19 Exam/Review of Systems Exam Vitals Vital Signs Date Temp Pulse Resp B/P (MAP) Pulse Ox O2 O2 Flow FiO2 Time Delivery Rate 02/18/19 98.8 73 20 101/57 97 08:03 (72) 02/14/19 Room Air 16:27 Intake and Output 02/17/19 02/17/19 02/18/19 1515:00 23:00 07:00 IntakeIntake Total 1210 ml 1320 ml 250 ml BalanceBalance 1210 ml 1320 ml 250 ml Results Result Diagram: 02/16/19 0451 02/16/19 0451 Results 24hrs Laboratory Tests Test 02/18/19 10:56 Vancomycin Level Trough 10.1 Medications Medication Current Medications IV Flush (NS 3 ml) 3 ml PER PROTOCOL IV ; Start 02/01/19 at 09:00 Ondansetron HCl (Zofran Inj) 4 mg Q6H PRN IV NAUSEA/VOMITING Last administered on 02/07/19at 09:10; Admin Dose 4 MG; Start 02/01/19 at 09:00 Vancomycin HCl (Vanco Iv Per Pharmacy) VANCOMYCIN PER PHARMACY PER PROTOCOL XX ; Start 02/02/19 at 10:30 Hydromorphone HCl (Dilaudid) 1 mg Q2 PRN IV SEVERE PAIN LEVEL 7-10 Last administered on 02/08/19 12:37; Admin Dose 1 MG; Start 02/02/19 at 13:00 Lorazepam (Ativan) 0.5 mg Q6H PRN IV anxiety Last administered on 02/18/19 09:46; Admin Dose 0.5 MG; Start 02/02/19 at 13:00 Acetaminophen/ Hydrocodone Bitart ([place] (10/325)) 1 tab Q4H PRN PO SEVERE PAIN LEVEL 7-10 Last administered on 02/14/19 21:43; Admin Dose 1 TAB; Start 02/04/19 at 11:30 Acetaminophen/ Hydrocodone Bitart ([place] (5/325)) 1 tab Q6H PRN PO MODERATE PAIN LEVEL 4-6 Last administered on 02/11/19 17:49; Admin Dose 1 TAB; Start 02/04/19 at 11:30 Acetaminophen (Tylenol Tab) 1,000 mg Q6H PRN PO MILD PAIN(1-3)OR ELEVATED TEMP Last administered on 02/09/19 14:06; Admin Dose 1,000 MG; Start 02/08/19 at 14:00 Famotidine (Pepcid) 20 mg BID PO Last administered on 02/18/19 09:45; Admin Dose 20 MG; Start 02/09/19 at 21:00 Vancomycin HCl 1.25 gm/Sodium Chloride 250 ml @ 83.333 mls/ hr Q8H IVPB Last administered on 02/18/19 13:01; Admin Dose 83.333 MLS/HR; Start 02/14/19 at 04:00 Ertapenem 1 gm/ Sodium Chloride 100 ml @ 200 mls/hr Q24H IVPB Last administered on 02/17/19 17:27; Admin Dose 200 MLS/HR; Start 02/14/19 at 14:00 Fluconazole (Diflucan) 100 mg DAILY PO Last administered on 02/18/19 09:45; Admin Dose 100 MG; Start 02/15/19 at 09:00 IV Flush (NS 10 ml) 10 ml PRN PRN IV IV PROTOCOL; Start 02/14/19 at 19:00 KELSEY DAS NP February 18, 2019 13:20
[2019-02-18 13:27] VITALS: BP 101/65; PULSE 74; RESP 20
--- NOTE | 2019-02-18 14:01 | PN ---
Date/Time of Note Date/Time of Note DATE: 02/18/19 TIME: 14:01 Assessment/Plan VTE Prophylaxis Risk score (from Ns)>0 risk: 1 SCD applied (from [facility]): No SCD contraindicated: other Pharmacological prophylaxis: NA/contraindicated Pharm contraindication: low risk/ambulating Lines/Catheters IV Catheter Type (from [facility]): PICC Line Central line still needed: Yes Urinary Cath still in place: No Assessment/Plan Hospital Course SUBJECTIVE: Denies any abdominal pain. OBJECTIVE: Physical Exam General: Obese, 39 year-old male lying in bed in no apparent distress. HEENT: Normocephalic, atraumatic. Eyes: Anicteric sclerae, conjunctivae clear. ENT: Nasal septum midline, oral mucosa moist. Neck supple, no JVD noticed. Respiratory: Bilaterally clear breath sounds. No use of accessory muscles of respiration. No adventitious breath sounds. Cardiovascular: S1, S2 heard. Regular rate and rhythm. Abdomen: Soft, nontender, and nondistended. Bowel sounds positive in all 4 quadrants. Genitourinary: Deferred. Extremities: No cyanosis, no clubbing, no edema. Peripheral pulses palpable. Neurologic: Cranial nerves II through XII grossly intact. The patient is awake, alert, and oriented. Skin: Normal skin turgor. No skin rashes. Labs & Vitals per chart ASSESSMENT & PLAN 39-year-old male with comorbidities including obesity and prior history of diverticulitis who came to the emergency room with chief complaint of abdominal pain with CT scan showing acute diverticulitis involving the mid to proximal sigmoid colon with a 3.8 x 1.3 cm abscess. The [facility] for further treatment and evaluation. 1. Recurrent perforated diverticulitis with abscess. -No safe window for IR drainage. -Being followed by general surgery. -Conservative management with IV antibiotics. 2. Obesity. -BMI 38 kg/m. -Weight reduction advised. 3. Dyslipidemia. -Low cholesterol diet advised. 4. Fluids, electrolytes, and nutrition. -Regular diet. 5. DVT prophylaxis. -Bilateral SCDs. 6. Plan. -Continue antimicrobials as per ID. -Status post PICC line insertion. -IV ABX has been arranged as per CM. -The patient to be discharged home on 02/19/2019. The patient was seen in collaboration with Dr. Arana. Result Diagram: 02/16/19 0451 02/16/19 0451 Results 24hrs Laboratory Tests Test 02/18/19 10:56 Vancomycin Level Trough 10.1 Exam/Review of Systems Exam Vitals Vital Signs Date Temp Pulse Resp B/P (MAP) Pulse Ox O2 O2 Flow FiO2 Time Delivery Rate 02/18/19 98.6 74 20 101/65 98 13:27 (77) 02/14/19 Room Air 16:27 Intake and Output 02/17/19 02/17/19 02/18/19 1515:00 23:00 07:00 IntakeIntake Total 1210 ml 1320 ml 250 ml BalanceBalance 1210 ml 1320 ml 250 ml Results Results 24hrs Laboratory Tests Test 02/18/19 10:56 Vancomycin Level Trough 10.1 Medications Medication Current Medications IV Flush (NS 3 ml) 3 ml PER PROTOCOL IV ; Start 02/01/19 at 09:00 Ondansetron HCl (Zofran Inj) 4 mg Q6H PRN IV NAUSEA/VOMITING Last administered on 02/07/19at 09:10; Admin Dose 4 MG; Start 02/01/19 at 09:00 Vancomycin HCl (Vanco Iv Per Pharmacy) VANCOMYCIN PER PHARMACY PER PROTOCOL XX ; Start 02/02/19 at 10:30 Hydromorphone HCl (Dilaudid) 1 mg Q2 PRN IV SEVERE PAIN LEVEL 7-10 Last adm inistered on 02/08/19at 12:37; Admin Dose 1 MG; Start 02/02/19 at 13:00 Lorazepam (Ativan) 0.5 mg Q6H PRN IV anxiety Last administered on 02/18/19at 09:46; Admin Dose 0.5 MG; Start 02/02/19 at 13:00 Acetaminophen/ Hydrocodone Bitart ([place] (10/325)) 1 tab Q4H PRN PO SEVERE PAIN LEVEL 7-10 Last administered on 02/14/19at 21:43; Admin Dose 1 TAB; Start 02/04/19 at 11:30 Acetaminophen/ Hydrocodone Bitart ([place] (5/325)) 1 tab Q6H PRN PO MODERATE PAIN LEVEL 4-6 Last administered on 02/11/19at 17:49; Admin Dose 1 TAB; Start 02/04/19 at 11:30 Acetaminophen (Tylenol Tab) 1,000 mg Q6H PRN PO MILD PAIN(1-3)OR ELEVATED TEMP Last administered on 02/09/19 14:06; Admin Dose 1,000 MG; Start 02/08/19 at 1 4:00 Famotidine (Pepcid) 20 mg BID PO Last administered on 02/18/19 09:45; Admin Dose 20 MG; Start 02/09/19 at 21:00 Vancomycin HCl 1.25 gm/Sodium Chloride 250 ml @ 83.333 mls/ hr Q8H IVPB Last administered on 02/18/19 13:01; Admin Dose 83.333 MLS/HR; Start 02/14/19 at 04:00 Ertapenem 1 gm/ Sodium Chloride 100 ml @ 200 mls/hr Q24H IVPB Last administered on 02/17/19 17:27; Admin Dose 200 MLS/HR; Start 02/14/19 at 14:00 Fluconazole (Diflucan) 100 mg DAILY PO Last administered on 02/18/19 09:45; Admin Dose 100 MG; Start 02/15/19 at 09:00 IV Flush (NS 10 ml) 10 ml PRN PRN IV IV PROTOCOL; Start 02/14/19 at 19:00 ODILON LOZANO NP February 18, 2019 14:01
[2019-02-18] MEDS: HYDROCODONE/APAP (10/325) TAB PO PRN ×2 (14:12→22:11)
[2019-02-18] MEDS: ERTAPENEM SODIUM 1 GM in SOD CHLORIDE 0.9% 100 ML IVPB SCH (15:47)
[2019-02-18 20:03] VITALS: BP 115/80; PULSE 85; RESP 18
[2019-02-18] MEDS ORDERED: ALTEPLASE (CATHFLO) 2 MG INJ CATHETER PRN (20:30)
[2019-02-19 01:59] VITALS: BP 115/78; PULSE 77; RESP 18
[2019-02-19] MEDS: VANCOMYCIN HCL 1.25 GM in SOD CHLORIDE 0.9% 250 ML IVPB SCH ×2 (04:34→12:53)
[2019-02-19] MEDS: LORAZEPAM 2 MG INJ IV PRN ×3 (05:29→17:45)
[2019-02-19] MEDS ORDERED: FLUC100T PO (05:46)
--- NOTE | 2019-02-19 05:49 | PDOCDIS ---
Discharge Instructions CONDITION [id number] Patient Condition: [id number] Stable HOME CARE INSTRUCTIONS: [id number] Diet Instructions: [id number] Low Fat /Cholesterol [id number] Special Diet: [id number] Low residue FOLLOW UP/APPOINTMENTS Follow-up Plan Please follow-up with [facility] ER in [address] for a [address] scan. OTHER ORDERS: Other Orders: 1. Complete the course of antimicrobials. 2. Resume activities as tolerated. 3. Follow a low cholesterol, low residue diet. 4. Please follow-up with [facility] ER in [address] for [address] scan. 5. Please go tot the ER if you have any significant abdominal pain, fevers, or any other unusual signs/symptoms. ODILON LOZANO NP February 19, 2019 05:49
[2019-02-19 07:50] VITALS: BP 121/74; PULSE 74; RESP 16
[2019-02-19] MEDS: FLUCONAZOLE 100 MG TAB PO SCH (09:05)
[2019-02-19] MEDS: FAMOTIDINE 20 MG TAB PO SCH (09:05)
--- NOTE | 2019-02-19 09:43 | PN ---
Date/Time of Note Date/Time of Note DATE: 02/19/19 TIME: 09:41 Assessment/Plan Lines/Catheters IV Catheter Type (from Nrs): PICC Line Keyes in Place (from Nrs): Yes Assessment/Plan Chief Complaint/Hosp Course 1. Recurrent perforated diverticulitis with abscess. HD stable: Repeat ct: acute diverticulitis of the sigmoid colon with slight progression of the per isigmoid inflammation and induration. Increase in size of perisigmoid fluid collection currently measures 6.2 cm in largest diameter. This was measured 3.8 cm in prior study. Dr. Beauchamp spoke with IR and they think it is accessible but currently phlegmonous and therefore wont drain much. He recommended repeat CT and IR drain to follow> reviewed CT with radiologist, abscess reportedly smaller and no good window to drain abscess; CT showed improvement -prolonged abx tx per ID> s/p PICC line -recommend outpt f/u for elective lap partial colectomy -eventual re-imaging > okay for discharge from surgical standpoint. Will need antibiotics per ID. Will need follow-up with GI for eventual colonoscopy and then with our service for eventual colectomy. This was discussed with patient. 2. Leukocytosis: resolved -Antibiotics/antifungal per ID -As above -Trend 3. Abdominal pain: Improved -As above 4. BMI 38 -encourage nutrition and exercise optimization Thank you. Patient seen and examined in collaboration with Dr. Chung Beauchamp. Subjective 24 Hr Interval Summary Feels well. No fevers, chills, sob, congested cough, cp, palpitations, greene, dizziness, n/v/d/dysuria. No abdominal pain. tolerating diet. + bowel function. Exam/Review of Systems Vital Signs Vitals Vital Signs Date Temp Pulse Resp B/P (MAP) Pulse Ox O2 O2 Flow FiO2 Time Delivery Rate 02/19/19 97.5 74 16 121/74 99 Room Air 07:50 (90) Intake and Output 02/18/19 02/18/19 02/19/19 1414:59 22:59 06:59 IntakeIntake Total 1240 ml 1310 ml 350 ml BalanceBalance 1240 ml 1310 ml 350 ml Exam Free Text/Dictation Constitutional: alert, oriented, somnolent Psych: nl mood/affect; No anxiety Head: normocephalic, atraumatic Eyes: nl conjunctiva, EOMI, nl lids, nl sclera ENMT: nl external ears & nose, nl lips & teeth, nl nasal mucosa & septum, mucosa pink and moist Neck: supple, non-tender Respiratory: normal air movement; No congested cough Cardiovascular: regular rate and rhythm, nl pulses Gastrointestinal: soft, NT, obese Genitourinary - Male: nl scrotum Musculoskeletal: nl extremities to inspection, nl gait and stance Extremities: normal pulses Neurological: nl mental status, nl speech, nl strength Results Result Diagram: 02/16/19 0451 02/16/19 0451 FOREST LOWE NP February 19, 2019 09:43
--- NOTE | 2019-02-19 12:20 | CONS ---
Assessment/Plan Assessment/Plan Hospital Course (Demo Recall) No acute changes overnight patient is alert feels good Antimicrobials: Vanco, Invanz, Diflucan CT of the abdomen repeated yesterday revealed sigmoid diverticulitis with phlegmon, extraluminal gas bubbles and pericolic abscess which communicates with the lumen of the bowel. Mild improvement compared to the recent prior study Physical examination: Well-nourished well-developed middle-aged man who is alert in no distress. Head atraumatic normocephalic. Neck is supple chest rise symmetrical. Breath sounds clear. Heart: S1-S2. Abdomen soft bowel sounds present. Extremities without cyanosis Assessment: 1. Systemic inflammatory response syndrome 2 to #2 2. Acute diverticulitis with phlegmon/abscess Plan: Remains stable, pending discharge home on IV antibiotics, consider repeat CT in 7 days. Consultation Date/Type/Reason Admit Date/Time February 01, 2019 at 08:04 Initial Consult Date 02/01/19 Type of Consult id Requesting Provider: NHAN NAJERA MD Date/Time of Note DATE: 02/19/19 TIME: 12:19 Exam/Review of Systems Exam Vitals Vital Signs Date Temp Pulse Resp B/P (MAP) Pulse Ox O2 O2 Flow FiO2 Time Delivery Rate 02/19/19 97.5 74 16 121/74 99 Room Air 07:50 (90) Intake and Output 02/18/19 02/18/19 02/19/19 1515:00 23:00 07:00 IntakeIntake Total 1240 ml 1310 ml 350 ml BalanceBalance 1240 ml 1310 ml 350 ml Results Result Diagram: 02/16/19 0451 02/16/19 0451 Medications Medication Current Medications IV Flush (NS 3 ml) 3 ml PER PROTOCOL IV ; Start 02/01/19 at 09:00 Ondansetron HCl (Zofran Inj) 4 mg Q6H PRN IV NAUSEA/VOMITING Last administered on 02/07/19at 09:10; Admin Dose 4 MG; Start 02/01/19 at 09:00 Vancomycin HCl (Vanco Iv Per Pharmacy) VANCOMYCIN PER PHARMACY PER PROTOCOL XX ; Start 02/02/19 at 10:30 Hydromorphone HCl (Dilaudid) 1 mg Q2 PRN IV SEVERE PAIN LEVEL 7-10 Last administered on 5/18/19at 12:37; Admin Dose 1 MG; Start 02/02/19 at 13:00 Lorazepam (Ativan) 0.5 mg Q6H PRN IV anxiety Last administered on 02/19/19 11:42; Admin Dose 0.5 MG; Start 02/02/19 at 13:00 Acetaminophen/ Hydrocodone Bitart ([place] (10/325)) 1 tab Q4H PRN PO SEVERE PAIN LEVEL 7-10 Last administered on 02/18/19 22:11; Admin Dose 1 TAB; Start 02/04/19 at 11:30 Acetaminophen/ Hydrocodone Bitart ([place] (5/325)) 1 tab Q6H PRN PO MODERATE PAIN LEVEL 4-6 Last administered on 02/11/19 17:49; Admin Dose 1 TAB; Start 02/04/19 at 11:30 Acetaminophen (Tylenol Tab) 1,000 mg Q6H PRN PO MILD PAIN(1-3)OR ELEVATED TEMP Last administered on 02/09/19 14:06; Admin Dose 1,000 MG; Start 02/08/19 at 14:00 Famotidine (Pepcid) 20 mg BID PO Last administered on 02/19/19 09:05; Admin Dose 20 MG; Start 02/09/19 at 21:00 Vancomycin HCl 1.25 gm/Sodium Chloride 250 ml @ 83.333 mls/ hr Q8H IVPB Last administered on 02/19/19 04:34; Admin Dose 83.333 MLS/HR; Start 02/14/19 at 04: 00 Ertapenem 1 gm/ Sodium Chloride 100 ml @ 200 mls/hr Q24H IVPB Last administered on 02/18/19 15:47; Admin Dose 200 MLS/HR; Start 02/14/19 at 14:00 Fluconazole (Diflucan) 100 mg DAILY PO Last administered on 02/19/19 09:05; Admin Dose 100 MG; Start 02/15/19 at 09:00 IV Flush (NS 10 ml) 10 ml PRN PRN IV IV PROTOCOL; Start 02/14/19 at 19:00 Alteplase, Recombinant (Cathflo (Activase)) 2 mg MAY REPEAT X1 PRN CATHETER IF CATHETER REMAINS OCCULUDED Last administered on 02/18/19 21:33; Admin Dose 2 MG; Start 02/18/19 at 20:30 KELSEY DAS NP February 19, 2019 12:20
--- NOTE | 2019-02-19 12:33 | DS ---
Date/Time of Note Date/Time of Note DATE: 02/19/19 TIME: 12:31 Discharge Summary Admission/Discharge Info Admit Date/Time February 01, 2019 at 08:04 Discharge Date/Time Discharge Diagnosis 1. Recurrent perforated diverticulitis with abscess. 2. Obesity. BMI 38 kg/m. 3. Dyslipidemia. Patient Condition: Stable Consults 1. Chung Beauchamp MD, General Surgery. 2. Davis Betts MD, Infectious Diseases. Procedures CT Abdomen & Pelvis 02/12/2019 IMPRESSION: Sigmoid diverticulitis with phlegmon, extraluminal gas bubbles and pericolic abscess which communicates with the lumen of the bowel. Mild improvement compared to recent prior study. Hx of Present Illness This is a 39-year-old male with comorbidities including obesity and prior history of diverticulitis who came to the emergency room with chief complaint of abdominal pain with CT scan showing acute diverticulitis involving the mid to proximal sigmoid colon with a 3.8 x 1.3 cm abscess. The patient was admitted to inpatient setting for further treatment and evaluation. Hospital Course The patient was recently discharged from [facility] on oral antibiotics for underlying diverticulitis on January 25, 2019. Patient's CT scan of the abdomen and pelvis that was done on 02/01/2019 showed acute diverticulitis involving the mid to proximal sigmoid colon along with a 3.8 x 1.3 cm abscess. General surgery and infectious disease consult was obtained. Initial plan was to do IR guided drainage of the abscess. However, after discussion with interventional radiology, the patient did not have any safe window for any IR drainage. Therefore, a clinical decision was made to treat this patient conservatively using IV antimicrobials. The patient was maintained on IV ertapenem along with IV vancomycin and fluconazole. Serial CT scans were done to see the progress of the abscess. CT scan from 02/06/2019 showed interval increase in perisigmoid fluid collection. Another CT scan of the abdomen and pelvis done on 02/08/2019 showed stable overall size of the perisigmoid phlegmon/abscess. He underwent another CT scan on 02/12/2019 that was showing sigmoid diverticulitis with phlegmon, extraluminal gas bubbles and pericolic abscess, improved compare to the prior study. Meanwhile, the patient's symptomatology including abdominal pain and leukocytosis improved. The patient was gradually introduced on a bland diet. Since the patient failed outpatient oral antibiotic therapy, a clinical decision was made to discharge this patient on IV antibiotic therapy for his underlying colonic abscess. Case management order was put in for arranging home IV antibiotics. The patient also had a PICC line inserted for long-term IV antibiotic therapy. Because of the delay in getting home health for home IV antibiotic therapy over the long weekend, the patient's stay was prolonged. The patient's comorbidities include obesity with a BMI of 38 kg/m. The patient was advised on weight reduction. The patient also has underlying dyslipidemia. The patient was advised on a low-cholesterol diet. The patient had a stable hospital course. The patient is stable for outpatient management, to be followed up with either emergency room or his primary care physician for a repeat CT scan of the abdomen and pelvis to confirm resolution of the underlying pathology. The patient had a stable hospital course. The patient was cleared by consultants to be discharged home. Discharge Instructions 1. Complete the course of antimicrobials. 2. Resume activities as tolerated. 3. Follow a low cholesterol, low residue diet. 4. Please follow-up with [facility] ER in [address] scan. 5. Please go tot the ER if you have any significant abdominal pain, fevers, or any other unusual signs/symptoms. The patient verbalized understanding of his discharge instructions. At this time I would like to thank all the consultants for seeing the patient, doing the necessary procedures, and providing clinical recommendations. The patient was seen in collaboration with Dr. Arana. Home Meds Active Scripts Vancomycin/0.9 % Sod Chloride (Vanco 1.25 gm/250 ml-0.9% NaCl) 1.25 Gm/250 Ml Plast..bag, 1.25 GM IV Q8H for 7 Days Pharmacy to dose. Prov:ODILON LOZANO NP 02/19/19 Ertapenem Sodium (Invanz) 1 Gm Vial, 1 GM IM Q24H for 7 Days, VIAL Prov:ODILON LOZANO NP 02/19/19 Fluconazole* (Diflucan*) 100 Mg Tablet, 100 MG PO DAILY, #6 TAB Prov:ODILON LOZANO NP 02/19/19 Follow-up Plan Please follow-up with [facility] ER in 1 week for a repeat [address] scan. Primary Care Provider Care Physician No Primary Time spent on discharge: > 30 minutes ODILON LOZANO NP February 19, 2019 12:33
[2019-02-19] MEDS ORDERED: VANC1.257 IV (13:58)
[2019-02-19] MEDS ORDERED: ERTA1VIA3 IM (13:58)
[2019-02-19 14:42] VITALS: BP 110/65; PULSE 83; RESP 18
[2019-02-19] MEDS: ERTAPENEM SODIUM 1 GM in SOD CHLORIDE 0.9% 100 ML IVPB SCH (16:52)
== END 2019-02-19 19:20 | disposition home health service (06) | DRG 872 ==
LOC: E/R 23:16 → 2NE 02-01 08:04
PROVIDERS: ADMIT Internal Medicine; ATTEND Internal Medicine
PROC: 02HV33Z Insertion of Infusion Device into Superior Vena Cava, Percutaneous Approach (ICD-10-PCS; principal; 2019-02-14)
DX: A41.9 Sepsis, unspecified organism (principal); K57.20 Diverticulitis of large intestine with perforation and abscess without bleeding; F41.9 Anxiety disorder, unspecified; E78.5 Hyperlipidemia, unspecified; E66.9 Obesity, unspecified; E87.6 Hypokalemia; F17.200 Nicotine dependence, unspecified, uncomplicated; Z68.38 Body mass index [BMI] 38.0-38.9, adult
CPT/HCPCS: 36415; 36569; 71045; 74177; 76937; 80048; 80053; 80061; 80069; 80202; 81001; 83036; 83605; 83735; 84100; 85025; 85049; 85610; 85670; 85730; 87081; 87086; 96365; 96375; 96376; J0131; J1170; J1335; J1450; J1885; J2060; J2185; J2270; J2405; J2543; J3370; J3480; J7030; J7040; J7050; Q9967

== ENCOUNTER 2019-02-26 09:49 | Emergency (ER) | payer OTHER ==
[~2019-02-26] VITALS: Ht 167.6 cm; Wt 91.8 kg
[~2019-02-26 09:49] MED LIST changes: -CIPR500T4 PO; +ERTA1VIA3 IM; +FLUC100T PO; -METR500T PO; +VANC1.257 IV
[2019-02-26 09:50] VITALS: Ht 167.6 cm; Wt 91.8 kg
[2019-02-26] MEDS ORDERED: SOD CHLORIDE 0.9% 1,000 ML IV STA (10:11)
[2019-02-26] MEDS ORDERED: ONDANSETRON 4 MG INJ IV STA (10:11)
--- NOTE | 2019-02-26 10:36 | ERD ---
ER Documentation Chief Complaint Chief Complaint for recheck ( ct scan ) pt has history of diverculitis HPI 39-year-old male is here for follow-up. He was admitted here for diverticulitis last month and discharged with a PICC line and told that he should come to the emergency room for repeat CT scan for recheck after finishing his antibiotics which he finished yesterday.. This his why he is here today. He states he has occasional cramping, but no longer has any left lower quadrant tenderness. No fever. No nausea vomiting or diarrhea. ROS All systems reviewed and are negative except as per history of present illness. Medications Home Meds Active Scripts Metronidazole* (Flagyl*) 500 Mg Tablet, 500 MG PO TID for 7 Days, TAB Prov:NHAN CHU MD 02/26/19 Levofloxacin* (Levaquin*) 750 Mg Tablet, 750 MG PO DAILY for 7 Days, TAB Prov:NHAN CHU MD 02/26/19 Vancomycin/0.9 % Sod Chloride (Vanco 1.25 gm/250 ml-0.9% NaCl) 1.25 Gm/250 Ml Plast..bag, 1.25 GM IV Q8H for 7 Days Pharmacy to dose. Prov:ODILON LOZANO NP 02/19/19 Ertapenem Sodium (Invanz) 1 Gm Vial, 1 GM IM Q24H for 7 Days, VIAL Prov:ODILON LOZANO NP 02/19/19 Fluconazole* (Diflucan*) 100 Mg Tablet, 100 MG PO DAILY, #6 TAB Prov:ODILON LOZANO NP 02/19/19 Allergies Allergies: Coded Allergies: No Known Allergy (Unverified , 02/01/19) PMhx/Soc History of Surgery: Yes (RIGHT ORBITAL SX 17 YEARS, PINS SX RIGHT HAND 19YERAS) Anesthesia Reaction: No Hx Neurological Disorder: No Hx Respiratory Disorders: No Hx Cardiac Disorders: No Hx Psychiatric Problems: Yes (DEPRESSION) Hx Miscellaneous Medical Probl: Yes (Diverticulosis/diverticulitis) Hx Alcohol Use: Yes (A YEAR AGO) Hx Substance Use: No Hx Tobacco Use: Yes Smoking Status: Current every day smoker FmHx Family History: No diabetes Physical Exam Vitals Vital Signs Date Temp Pulse Resp B/P (MAP) Pulse Ox O2 O2 Flow FiO2 Time Delivery Rate 02/26/19 97.8 102 19 142/106 100 09:50 (118) Physical Exam INITIAL VITAL SIGNS: Reviewed by me GENERAL: Awake, alert and oriented x 4, well appearing, nontoxic, speaking in full sentences. No acute distress HEAD: Atraumatic NECK: Supple. No masses. Full range of motion. No meningismus. No midline tenderness. RESPIRATORY: Clear to auscultation bilaterally. Symmetric chest wall rise. No wheezing or rales. No accessory muscle use. CV: Regular rate and rhythm. No murmurs, rubs, or gallops. ABDOMEN: Soft, non-distended. Nontender. Negative [place]. Negative [place] point tenderness. No CVA tenderness bilaterally. No guarding. No rebound. Result Diagram: 02/26/19 1018 02/26/19 1018 Results 24 hrs Laboratory Tests Test 02/26/19 10:18 White Blood Count 3.8 10^3/ul Red Blood Count 4.71 10^6/ul Hemoglobin 14.5 g/dl Hematocrit 42.0 % Mean Corpuscular Volume 89.2 fl Mean Corpuscular Hemoglobin 30.8 pg Mean Corpuscular Hemoglobin Concent 34.5 g/dl Red Cell Distribution Width 12.6 % Platelet Count 288 10^3/UL Mean Platelet Volume 9.7 fl Immature Granulocytes % 0.300 % Neutrophils % 57.9 % Lymphocytes % 28.9 % Monocytes % 9.2 % Eosinophils % 2.9 % Basophils % 0.8 % Nucleated Red Blood Cells % 0.0 /100WBC Immature Granulocytes # 0.010 10^3/ul Neutrophils # 2.2 10^3/ul Lymphocytes # 1.1 10^3/ul Monocytes # 0.4 10^3/ul Eosinophils # 0.1 10^3/ul Basophils # 0.0 10^3/ul Nucleated Red Blood Cells # 0.0 10^3/ul Sodium Level 139 mmol/L Potassium Level 4.0 mmol/L Chloride Level 104 mmol/L Carbon Dioxide Level 23 mmol/L Anion Gap 12 Blood Urea Nitrogen 9 mg/dl Creatinine 0.59 mg/dl Est Glomerular Filtrat Rate mL/min > 60 mL/min Glucose Level 138 mg/dl Calcium Level 9.4 mg/dl Total Bilirubin 0.5 mg/dl Direct Bilirubin 0.00 mg/dl Indirect Bilirubin 0.5 mg/dl Aspartate Amino Transf (AST/SGOT) 32 IU/L Alanine Aminotransferase (ALT/SGPT) 47 IU/L Alkaline Phosphatase 106 IU/L Total Protein 8.2 g/dl Albumin 4.5 g/dl Globulin 3.70 g/dl Albumin/Globulin Ratio 1.21 Lipase 119 U/L Current Medications Medications Dose Sig/Christian Start Time Status Last (Trade) Ordered Route PRN Stop Time Admin Dose Reason Admin Sodium 1,000 ml @ Q1H STAT 02/26/19 DC 02/26/19 Chloride 1,000 mls/hr IV 10:11 02/26/19 10:36 11:10 Ondansetron 4 mg ONCE STAT 02/26/19 DC 02/26/19 HCl (Zofran IV 10:11 02/26/19 10:36 Inj) 10:13 IV Flush 10 ml STK-MED 02/26/19 DC 02/26/19 (NS 10 ml) ONCE .ROUTE 11:04 02/26/19 11:37 11:05 Sodium 100 ml @ ud STK-MED 02/26/19 DC 02/26/19 Chloride ONCE .ROUTE 11:04 02/26/19 11:37 11:05 Iohexol 150 ml STK-MED 02/26/19 DC 02/26/19 (Omnipaque ONCE .ROUTE 11:04 02/26/19 11:37 300mg/ ml) 11:05 Lorazepam 1 mg ONCE ONCE 02/26/19 DC 02/26/19 (Ativan) IV 12:00 02/26/19 12:08 12:01 Ondansetron 4 mg BRIDGE ORDER 02/26/19 HCl (Zofran PRN IV 14:00 02/27/19 Inj) NAUSEA/VOMITI 13:59 NG 650 mg ER BRIDGE 02/26/19 Acetaminophen PRN PO 14:00 02/27/19 (Tylenol .MILD PAIN 13:59 Tab) 1-3 OR TEMP Procedures/MDM Patient here to follow-up on his diverticulitis. I reviewed his previous notes and did show he had diverticulitis with abscess. Repeat labs and CT scan ordered. Labs are unremarkable but CT scan again demonstrates diverticulitis with abscess formation. Case was discussed with Dr. Chu and she will be taking over care and patient will be admitted. Attending addendum: Patient was initially seen by the PA then care was transferred to [place]. Patient is presenting for repeat CT scan after IV antibiotics for diverticulitis with associated abscess. Repeat CT shows that his abscess is getting smaller. He is currently asymptomatic with no fever and no significant lab abnormalities. I do not suspect acute surgical abdomen, severe sepsis or septic shock. I spoke with the admitting physicians from his last admission. I attempted to contact the infectious disease doctor as well as the surgeon, but I was unable to get in touch with them. I spoke with Dr. Arana, who spoke with the infectious disease doctor, Dr. Betts, who recommended outpatient antibiotics for 1 more week with Flagcheryle and Levchetan. Patient feels comfortable with this discharge plan. Again recommended follow-up with PCP after antibiotics for outpatient colonoscopy. Return precautions given. Patient's blood pressure was elevated (>120/80) but appears stable without evidence of hypertension emergency or urgency. The patient was counseled about the risks of hypertension and urged to pursue outpatient monitoring and therapy within a week with their primary care physician. Departure Diagnosis: Primary Impression: Diverticulitis of intestine with abscess Diverticulitis site: large intestine Diverticulitis bleeding: without bleeding Qualified Codes: K57.20 - Diverticulitis of large intestine with perforation and abscess without bleeding Condition: HARMEET Santamaria PA-C Feb 26, 2019 10:36 NHAN CHU MD Feb 26, 2019 14:18
[2019-02-26] MEDS ORDERED: IOHEXOL 300MG/ML 150 ML BTL ONE (11:04)
[2019-02-26] MEDS ORDERED: SOD CHLORIDE 0.9% 100 ML ONE (11:04)
[2019-02-26] MEDS ORDERED: LORAZEPAM 2 MG INJ IV ONE (12:00)
[2019-02-26] MEDS ORDERED: ONDANSETRON 4 MG INJ IV PRN (14:00)
[2019-02-26] MEDS ORDERED: ACETAMINOPHEN 325 MG TAB PO PRN (14:00)
[2019-02-26] MEDS ORDERED: METR500T PO (14:16)
[2019-02-26] MEDS ORDERED: LEVO750T25 PO (14:16)
[2019-02-26 14:54] VITALS: BP 131/85; PULSE 80; RESP 18
== END 2019-02-26 15:25 | disposition home or self-care (01) ==
LOC: FTE 09:49 → CANBEDREQ 14:19 → FTE 15:25
DX: K57.20 Diverticulitis of large intestine with perforation and abscess without bleeding (principal); F17.210 Nicotine dependence, cigarettes, uncomplicated
CPT/HCPCS: 36415; 74177; 80053; 83690; 85025; 96361; 96374; 96375; J2060; J2405; J7030; Q9967; Z7502; Z7610

== ENCOUNTER 2019-02-27 23:01 | Emergency (ER) | payer SELFPAY ==
[~2019-02-27] VITALS: Wt 94.0 kg
[~2019-02-27 23:01] MED LIST changes: +LEVO750T25 PO; +METR500T PO
[2019-02-27 23:13] VITALS: BP 144/83; PULSE 79; RESP 18
== END 2019-02-28 00:03 | disposition left against medical advice (07) ==
LOC: FTE 23:01
DX: Z53.21 Procedure and treatment not carried out due to patient leaving prior to being seen by health care provider (principal)